=== PATIENT | female | born 1940 | race Caucasian/White ===

== ENCOUNTER 2020-08-06 17:04 | Inpatient (IN) ==
[2020-08-06] MEDS ORDERED: AMPICILLIN/SULBACTAM SOD 3,000 MG in 0.9 % SODIUM CHLORIDE 100 ML IV STA (19:29)
[2020-08-06 19:45] LABS: Basophils # (auto) 0.04 K/uL (0-0.2); Basophils % (auto) 0.3 %; Eosinophils # (auto) 0.13 K/uL (0-0.5); Eosinophils % (auto) 1.1 %; Hematocrit (blood only) 33.2 % (37-47); Immature Granulocytes # (auto) 0.04 K/uL (0.00-0.02); Immature Granulocytes % (auto) 0.3 %; Lymphocytes % (auto) 8.1 %; Mean Corpuscular Hemoglobin 31.3 pg (25-34); Mean Corpuscular Hgb Conc 33.1 g/dL (32-36); Mean Corpuscular Volume 94.3 fL (80-100); Mean Platelet Volume 9.8 fL (7.4-10.4); Monocytes # (auto) 1.34 K/uL (0.11-0.59); Monocytes % (auto) 10.8 %; Neutrophils # (auto) 9.82 K/uL (1.4-6.5); Neutrophils % (auto) 79.4 %; Platelet Count 183 K/uL (130-400); RDW Coefficient of Variation 14.2 % (11.5-14.5); RDW Standard Deviation 48.6 fL (36.4-46.3); Red Blood Count 3.52 M/uL (4.2-5.4); White Blood Count 12.37 K/uL (4.8-10.8)
[2020-08-06 19:56] LABS: INR 1.1 (0.9-1.1); Partial Thromboplastin Ratio 0.8; Partial Thromboplastin Time 23.1 Seconds (21.0-31.0); Prothrombin Time 11.4 Seconds (9.0-12.0)
[2020-08-06 20:02] LABS: Albumin Level 3.4 gm/dl (3.4-5.0); BUN Creatinine Ratio 17.6 (10-20); Calcium 9.7 mg/dl (8.5-10.1); Creatinine Clr Calc Pharmacy 29.6 ml/min; Est GFR (African American) 38.7; Est GFR (Non-African American) 33.4
[2020-08-06 20:05] LABS: Albumin Globulin Ratio 0.6 (0.9-2); Bilirubin,Total 0.4 mg/dl (0.2-1); Globulin 5.3 gm/dl (2.5-4.0); Total Protein 8.7 gm/dl (6.4-8.2)
[2020-08-06 20:06] LABS: iSTAT Creatinine 1.3 mg/dl (0.6-1.3); iSTAT Hemoglobin 10.9 g/dl (12.0-16.0); iSTAT Ionized Calcium 1.28 mmol/l (1.12-1.32); iSTAT Potassium 4.2 mmol/L (3.3-5.0)
[2020-08-06] MEDS ORDERED: IOVERSOL 100ml IV ONE (20:27)
--- NOTE | 2020-08-06 20:44 | CT Scan Report ---
CT SCAN OF THE ABDOMEN AND PELVIS WITH IV CONTRAST CLINICAL HISTORY: Left buttock abscess. COMPARISON STUDY: PET/CT dated 06/27/2019. TECHNIQUE: Following the IV administration of 94 cc of Optiray 320, CT scan of the abdomen and pelvi s is performed from the lung bases to the proximal femora. Images are reviewed in the axial, sagittal , and coronal planes. IV contrast was administered without complication. A dose lowering technique wa s utilized adhering to the principles of ALARA. CT DOSE: 571.72 mGy.cm FINDINGS: Lung bases: The heart is normal in size and without pericardial effusion. The lung bases are clear. T here is a small hiatal hernia. Liver: The contrast-enhanced liver is normal in size, contour, and attenuation. The liver is elongate d suggesting Evert's lobe variant anatomy. There is no intrahepatic biliary ductal dilatation. The h epatic veins and portal veins are patent. Gallbladder: Contracted. Spleen: Normal in size and attenuation. Pancreas: Pancreas is mildly atrophic. There are 2 cystic lesions in the pancreatic head and neck whi ch measure up to 1.3 cm. These are typical appearance for small sidebranch IPMNs. Adrenal glands: Unremarkable. Kidneys: The contrast enhanced kidneys demonstrate mild cortical atrophy and are without hydronephros is. The kidneys enhance symmetrically. Peripelvic cysts are noted on the left. Abdominal vasculature: The abdominal aorta is normal in course and caliber noting moderate to advance d atherosclerotic calcification. Bowel: There are scattered colonic diverticula without CT evidence of acute diverticulitis. No bowel obstruction is seen. The appendix is well-visualized and normal. Peritoneum: There is no intraperitoneal free air or abdominal ascites. There is a small fat-containin g umbilical hernia. Lymphadenopathy: None. Pelvic viscera: The bladder, uterus, and adnexa are normal as visualized. Skeletal structures: The skeletal structures are osteopenic. There is moderate to advanced lumbosacra l spondylosis and scoliosis. No lytic or blastic lesions are seen. Soft tissues: There is phlegmonous change identified in the left buttock along the inferior aspect of the midline gluteal crease. There is surrounding soft tissue inflammation. No organized/drainable fl uid collection is identified. Inflammatory change approaches the left aspect of the anal ring at the 4:00 position. No deep soft tissue gas is present in the perineum. IMPRESSION: 1. There is phlegmonous change in the inferior left buttock with surrounding cellulitis as above. No organized/drainable fluid collection is identified at this time. 2. Inflammatory change approaches the inferior aspect of the anal ring at the 4:00 position. 3. Additional findings as above. ACT 112: Negative or not required by law. Electronically signed by: Jack Coyne M.D. 08/06/2020 8:43 PM
--- NOTE | 2020-08-06 21:24 | Emergency Department Note ---
History of Present Illness General Chief complaint: Skin Problem Stated complaint: BOIL Time Seen by Provider: 08/06/20 19:16 Source: patient Mode of arrival: ambulatory Limitations: no limitations History of Present Illness Provider Complaint: + abscess/boil Onset (ago): 2 day(s) Tetanus up to date: yes Location: + buttocks Severity: mild Maximum Pain Intensity: 1 Current Pain Intensity: 1 Quality: + aching, + sharp and + constant Pain Consistency: + constant Relieved By: + immobilization Exacerbated By: + palpation and + movement Context: + none Associated symptoms: + denies other symptoms Treatments prior to arrival: + none HPI narrative: This 79-year-old female patient with significant past medical history of breast cancer with mets to the bone and lymph nodes presents to the emergency department today as a referral from her PCP for evaluation of left buttock abscess and cellulitis. The patient was seen in the outpatient clinic earlier today for pain and swelling in the left buttock. The patient states the abscess does seem to have opened since her arrival here in the emergency department and is now draining pus and blood. Patient states she noticed the abscess 1 week ago, but has worsened in the past 1 to 2 days. She denies any fevers or chills. She is currently taking Xgeva for the breast cancer. Home Medications Home Medications Medication Instructions Recorded Confirmed Type isosorbide dinitrate 30 mg tablet 30 mg PO QAM tab 07/04/19 08/06/20 History letrozole 2.5 mg tablet 2.5 mg PO QAM 07/04/19 08/06/20 History lisinopril 5 mg tablet 5 mg PO QAM 07/04/19 08/06/20 History metoprolol tartrate 50 mg tablet 50 mg PO QAM tab 07/04/19 08/06/20 History multivitamin 1 tab PO QAM 07/04/19 08/06/20 History rosuvastatin 20 mg tablet 20 mg PO QAM 07/04/19 08/06/20 History ascorbic acid (vitamin C) 500 mg PO DAILY 08/06/20 08/06/20 History aspirin [Aspir-81] 81 mg PO DAILY 08/06/20 08/06/20 History denosumab [Xgeva] 120 mg SUBCUT Q4WK 08/06/20 08/06/20 History Allergies Allergy/AdvReac Type Severity Reaction Status Date / Time No Known Allergies Verified 06/04/20 07:04 Past Med/Surg History Medical History Breast cancer, left JUN 2019 > RADIATION > RESOLVED Chronic ischemic heart disease FOLLOWS DR. CASAREZ Dyslipidemia Esophageal reflux H/O pneumothorax spontaneous > YRS AGO PER PATIENT History of ASCVD (atherosclerotic cardiovascular disease) STEMI 2009 Hypertension Mixed incontinence Varicose vein of leg Surgical History History of cardiac cath 1 STENT 2009 History of colonoscopy History of heart artery stent 1 STENT 2009 > [facility] History of tooth extraction S/P angioplasty 2009 S/P left breast biopsy 06-08-2019 Family History Mother , age 72 Heart disease Arthritis Father , age 72 Alzheimer disease Sister , age 70 Coronary heart disease Brother Stroke Brother , age 80 Heart disease Daughter Breast cancer had radiation therapy Daughter No problems noted. Son No problems noted. 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 Other Information That Helps Us Care for You: No Feels Safe at Home: Yes Safety Concerns: Feels Safe At This Time Childhood Exposure to Second-Hand Smoke: No Assistive Devices: Cane, Denture - Upper and Glasses Review of Systems A total of 10 systems reviewed and were otherwise negative Physical Exam Vital Signs: Vital Signs - 24 hr 08/06/20 17:09 08/06/20 19:33 08/06/20 19:49 Temperature 37.2 C Temperature Source Oral Pulse Rate 93 H Pulse Rate [Apical ] 75 Respiratory Rate 18 20 Respiratory Effort / Characteristics Non-Labored Respiratory Depth Normal Respiratory Patter n Regular Blood Pressure 138/68 Blood Pressure [Le ft Arm] 149/55 H Blood Pressure Silke n 91 Blood Pressure Silke n [Left Arm] 86 Blood Pressure Pos ition Sitting Pulse Oximetry 91 98 98 Oxygen Delivery Me thod Room Air Room Air Room Air Sepsis Recent Feve r Within 48 Hours Yes Sepsis New/Unexpla ined Change in Men bernarda Status No Sepsis Action Take n by Nursing No Action Required 08/06/20 20:00 08/06/20 21:00 Temperature Temperature Source Pulse Rate Pulse Rate [Apical ] 69 66 Respiratory Rate 20 21 Respiratory Effort / Characteristics Respiratory Depth Normal Normal Respiratory Patter n Blood Pressure Blood Pressure [Le ft Arm] 126/55 L 123/60 Blood Pressure Silke n Blood Pressure Silke n [Left Arm] 78 81 Blood Pressure Pos ition Pulse Oximetry 97 98 Oxygen Delivery Me thod Room Air Room Air Sepsis Recent Feve r Within 48 Hours Sepsis New/Unexpla ined Change in Men bernarda Status Sepsis Action Take n by Nursing Physical Exam: VITALS: Vitals are noted on the nurse's note and reviewed by my self. Vital signs stable. GENERAL: This is a an 79-year-old white female, in no acute distress, non diaphoretic, well-developed well-nourished. SKIN: Induration of the left buttock with surrounding mild erythematous, cellulitic changes of the skin encroaching on the anus. The skin was without rashes, erythema, edema, or bruising. There is no tenting of the skin. Capillary refill less than 2 seconds. HEAD: Normocephalic atraumatic. EYES: Conjunctivae without injection, sclerae without icterus. NECK: Supple without nuchal rigidity. No lymphadenopathy. HEART: Regular rate and rhythm without murmurs gallops or rubs. LUNGS: Clear to auscultation bilaterally without wheezes, rales or rhonchi. No retractions or accessory muscle use. ABDOMEN: Positive bowel sounds x 4. Normal tympanic percussion. Soft, nontender, without masses or organomegaly. No guarding or rebound tenderness. MUSCULOSKELETAL: No muscle atrophy, erythema, or edema noted. Full range of motion without joint tenderness in all extremities. No tenderness to palpation. Normal gait. Strength 5/5 throughout. NEURO: Patient was alert and oriented to person place and time. No focal neurological deficits. Course Course The patient was seen and evaluated as above. An order was placed for continuous cardiac monitoring. The monitor shows a n ormal sinus rhythm at a rate of 67 bpm. IV access obtained, labs drawn. Patient medicated with Unasyn. Imaging performed and reviewed by myself and radiologist as noted. Labs reviewed by myself. I discussed the findings with the patient at bedside. I discussed the case with the environmental manager. I discussed the [facility] He did agree to see and evaluate the patient for admission. Administered Medications Discontinued Medications Ampicillin Sodium/Sulbactam Sodium 3,000 mg/ Sodium Chloride 108 mls @ 200 mls/hr IV NOW STA; Protocol Stop: 08/06/20 20:01 Last Infusion: 08/06/20 21:14 Dose: 0 mls/hr Documented by: [id number] Admin: 08/06/20 20:41 Dose: 200 mls/hr Documented by: [id number] Ioversol (Ioversol 100ml) 94 ml IV ONCE ONE Stop: 08/06/20 20:28 Last Admin: 08/06/20 20:27 Dose: 94 ml Documented by: [id number] Medical Decision Making Differential Diagnosis + abscess of skin or subcutaneous tissue, + allergic reaction to drug, + cellulitis, + contact dermatitis, + cellulitis, + necrotizing fasciitis, + dermatitis and + drug eruption In addition to the above, Elsa's gangrene, among others were considered. Medical Records Attestation: I reviewed the patient's medical records. Home Medications Current Medication List: was personally reviewed by me Laboratory Data Attestation: I reviewed the patient's lab results. Mild leukocytosis of 12,000. Mild anemia with a hemoglobin of 11.0 and hematocrit of 33.2. No thrombocytopenia. Coags normal. Lactic acid 1.7. Creatinine 1.3. Hepatic function electrolytes without significant abnormality. Blood cultures pending. Wound culture pending. Result diagrams: 08/06/20 19:36 08/06/20 19:36 Lab Results 08/06/20 08/06/20 08/06/20 Range/Units 19:36 19:36 19:36 WBC 12.37 H (4.8-10.8) K/uL RBC 3.52 L (4.2-5.4) M/uL Hgb 11.0 L (12.0-16.0) g/dL POC Hgb (12.0-16.0) g/dl Hct 33.2 L (37-47) % POC Hct (37-47) % MCV 94.3 (80-100) fL MCH 31.3 (25-34) pg MCHC 33.1 (32-36) g/dL RDW Std Deviation 48.6 H (36.4-46.3) fL RDW Coeff of Allen 14.2 (11.5-14.5) % Plt Count 183 (130-400) K/uL MPV 9.8 (7.4-10.4) fL Immature Gran % (Auto) 0.3 % Neut % (Auto) 79.4 % Lymph % (Auto) 8.1 % Stanton % (Auto) 10.8 % Eos % (Auto) 1.1 % Baso % (Auto) 0.3 % Neut # (Auto) 9.82 H (1.4-6.5) K/uL Lymph # (Auto) 1.00 L (1.2-3.4) K/uL Stanton # (Auto) 1.34 H (0.11-0.59) K/uL Eos # (Auto) 0.13 (0-0.5) K/uL Baso # (Auto) 0.04 (0-0.2) K/uL Immature Gran # (Auto) 0.04 H (0.00-0.02) K/uL PT 11.4 (9.0-12.0) Seconds INR 1.1 (0.9-1.1) APTT 23.1 (21.0-31.0) Seconds PTT Ratio 0.8 POC Sodium (135-144) mmol/L Sodium (136-145) mmol/L POC Potassium (3.3-5.0) mmol/L Potassium (3.5-5.1) mmol/L POC Chloride (101-112) mmol/L Chloride (98-107) mmol/L Carbon Dioxide (21-32) mmol/L POC Total CO2 (24-31) mmol/L Anion Gap (3-11) POC Anion Gap (16-25) mmol/L POC BUN (7-18) mg/dl BUN (7-18) mg/dl Creatinine (0.6-1.2) mg/dl POC Creatinine (0.6-1.3) mg/dl Est Cr Clr Drug Dosing ml/min Est GFR ( Amer) Est GFR (Non-Af Amer) BUN/Creatinine Ratio (-20) Glucose (70-99) mg/dl POC Glucose (other) (70-99) mg/dl Lactate 1.7 (0.4-2.0) mmol/L Calcium (8.5-10.1) mg/dl POC Ioniz Calcium Rajani (1.12-1.32) mmol/l Total Bilirubin (0.2-1) mg/dl AST (15-37) U/L ALT (12-78) U/L Alkaline Phosphatase (45-117) U/L Total Protein (6.4-8.2) gm/dl Albumin (3.4-5.0) gm/dl Globulin (2.5-4.0) gm/dl Albumin/Globulin Ratio (0.9-2) 08/06/20 08/06/20 Range/Units 19:36 19:50 WBC (4.8-10.8) K/uL RBC (4.2-5.4) M/uL Hgb (12.0-16.0) g/dL POC Hgb 10.9 L (12.0-16.0) g/dl Hct (37-47) % POC Hct 32 L (37-47) % MCV (80-100) fL MCH (25-34) pg MCHC (32-36) g/dL RDW Std Deviation (36.4-46.3) fL RDW Coeff of Allen (11.5-14.5) % Plt Count (130-400) K/uL MPV (7.4-10.4) fL Immature Gran % (Auto) % Neut % (Auto) % Lymph % (Auto) % Stanton % (Auto) % Eos % (Auto) % Baso % (Auto) % Neut # (Auto) (1.4-6.5) K/uL Lymph # (Auto) (1.2-3.4) K/uL Stanton # (Auto) (0.11-0.59) K/uL Eos # (Auto) (0-0.5) K/uL Baso # (Auto) (0-0.2) K/uL Immature Gran # (Auto) (0.00-0.02) K/uL PT (9.0-12.0) Seconds INR (0.9-1.1) APTT (21.0-31.0) Seconds PTT Ratio POC Sodium 139 (135-144) mmol/L Sodium 136 (136-145) mmol/L POC Potassium 4.2 (3.3-5.0) mmol/L Potassium 4.0 (3.5-5.1) mmol/L POC Chloride 100 L (101-112) mmol/L Chloride 104 (98-107) mmol/L Carbon Dioxide 27 (21-32) mmol/L POC Total CO2 25 (24-31) mmol/L Anion Gap 5.0 (3-11) POC Anion Gap 19.0 (16-25) mmol/L POC BUN 26 H (7-18) mg/dl BUN 26 H (7-18) mg/dl Creatinine 1.47 H (0.6-1.2) mg/dl POC Creatinine 1.3 (0.6-1.3) mg/dl Est Cr Clr Drug Dosing 29.6 ml/min Est GFR ( Amer) 38.7 Est GFR (Non-Af Amer) 33.4 BUN/Creatinine Ratio 17.6 (10-20) Glucose 159 H (70-99) mg/dl POC Glucose (other) 166 H (70-99) mg/dl Lactate (0.4-2.0) mmol/L Calcium 9.7 (8.5-10.1) mg/dl POC Ioniz Calcium Rajani 1.28 (1.12-1.32) mmol/l Total Bilirubin 0.4 (0.2-1) mg/dl AST 62 H (15-37) U/L ALT 85 H (12-78) U/L Alkaline Phosphatase 98 (45-117) U/L Total Protein 8.7 H (6.4-8.2) gm/dl Albumin 3.4 (3.4-5.0) gm/dl Globulin 5.3 H (2.5-4.0) gm/dl Albumin/Globulin Ratio 0.6 L (0.9-2) Imaging Data Radiologist's Impression: CT SCAN OF THE ABDOMEN AND PELVIS WITH IV CONTRAST CLINICAL HISTORY: Left buttock abscess. COMPARISON STUDY: PET/CT dated 06/27/2019. TECHNIQUE: Following the IV administration of 94 cc of Optiray 320, CT scan of the abdomen and pelvis is performed from the lung bases to the proximal femora. Images are reviewed in the axial, sagittal, and coronal planes. IV contrast was administered without complication. A dose lowering technique was utilized adhering to the principles of ALARA. CT DOSE: 571.72 mGy.cm FINDINGS: Lung bases: The heart is normal in size and without pericardial effusion. The lung bases are clear. There is a small hiatal hernia. Liver: The contrast-enhanced liver is normal in size, contour, and attenuation. The liver is elongated suggesting Evert's lobe variant anatomy. There is no intrahepatic biliary ductal dilatation. The hepatic veins and portal veins are patent. Gallbladder: Contracted. Spleen: Normal in size and attenuation. Pancreas: Pancreas is mildly atrophic. There are 2 cystic lesions in the pancreatic head and neck which measure up to 1.3 cm. These are typical appearan ce for small sidebranch IPMNs. Adrenal glands: Unremarkable. Kidneys: The contrast enhanced kidneys demonstrate mild cortical atrophy and are without hydronephrosis. The kidneys enhance symmetrically. Peripelvic cysts are noted on the left. Abdominal vasculature: The abdominal aorta is normal in course and caliber noting moderate to advanced atherosclerotic calcification. Bowel: There are scattered colonic diverticula without CT evidence of acute diverticulitis. No bowel obstruction is seen. The appendix is well-visualized and normal. Peritoneum: There is no intraperitoneal free air or abdominal ascites. There is a small fat-containing umbilical hernia. Lymphadenopathy: None. Pelvic viscera: The bladder, uterus, and adnexa are normal as visualized. Skeletal structures: The skeletal structures are osteopenic. There is moderate to advanced lumbosacral spondylosis and scoliosis. No lytic or blastic lesions are seen. Soft tissues: There is phlegmonous change identified in the left buttock along the inferior aspect of the midline gluteal crease. There is surrounding soft tissue inflammation. No organized/drainable fluid collection is identified. Inflammatory change approaches the left aspect of the anal ring at the 4:00 position. No deep soft tissue gas is present in the perineum. IMPRESSION: 1. There is phlegmonous change in the inferior left buttock with surrounding c ellulitis as above. No organized/drainable fluid collection is identified at this time. 2. Inflammatory change approaches the inferior aspect of the anal ring at the 4:00 position. 3. Additional findings as above. ACT 112: Negative or not required by law. Electronically signed by: Jack Coyne M.D. 08/06/2020 8:43 PM Blood Pressure Blood Pressure Findings: Normal blood pressure MDM Narrative This 79-year-old female patient with significant past medical history of breast cancer on chemotherapy presents at the referral of her PCP for evaluation of an abscess and cellulitis on the left buttock. This is extensive in nature. We did elect to perform CT imaging to rule out Elsa's gangrene. This was consistent with phlegmonous change in the inferior left buttock with surrounding cellulitis, but no organized drainable fluid collection identified at this time. The inflammatory change does approach the inferior aspect of the anal ring at the 4 o'clock position. I am concerned for development of extensive abscess. The wound did begin draining while here in the department. Patient does have a mild leukocytosis. Given this and her chronic immunosuppression, I do recommend inpatient therapy for IV antibiotics, close monitoring, and potential surgical consultation. The patient was agreeable. [facility] Please see hospitalist dictation regarding ongoing management care of this patient. The chart was completed utilizing [employer] Speech voice recognition software. Grammatical errors, random word insertions, pronoun errors, and incomplete sentences are an occasional consequence of this system due to software limitations, ambient noise, and hardware issues. Any formal questions or concerns about the content, text, or information contained within the body of this dictation should be directly addressed to the provider for clarification. Impression & Plan Abscess, gluteal, left, Breast cancer metastasized to bone, T2DM (type 2 diabetes mellitus) Discharge Plan Visit Data Chief Complaint: Skin Problem Stated Complaint: BOIL ED Provider: Jared Smalls ED Midlevel Provider: Patti Jeong Discharge Problem: Abscess, gluteal, left, Breast cancer metastasized to bone, T2DM (type 2 diabetes mellitus) Patient Disposition: Admitted As Inpatient Discharge Instructions Interventions: ED Discharge Assessment Last Done: 08/06/20 22:21
--- NOTE | 2020-08-06 22:04 | History & Physical Report ---
Date of Service August 06, 2020 Assessment & Plan (1) Abscess, gluteal, left: This is an 79-year-old female who has significant past medical history of chronic ischemic heart disease with history of angioplasty and stent, history of left breast CA with mets to lung and bone currently in remission, HTN, HLD, CKD stage III who presents to ED secondary to left buttock pain x 1wk. Patient with large left gluteal crease carbuncle. She does not meet SIRS or sepsis criteria on admission. Admit to medical Continue IV antibiotics with Unasyn N.p.o. Consult general surgery for likely I&D wound/blood cultures pending APAP for pain IVF 75cc/hr NS (2) Acute worsening of stage 3 chronic kidney disease: Baseline creatinine 1.0 Likely elevated in setting of poor p.o. intake Gentle IVF 75 cc/h x 2 L Repeat in a.m., avoid nephrotoxic agents Hold lisinopril (3) Elevated LFTs: AST 62, ALT 85 Repeat in a.m. 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 Grady Status post radiation and Femara Follow-up with Dr. Grady today, 08/06 -stable (7) Hypertension: Blood pressure stable On lisinopril, metoprolol and Imdur Hold lisinopril in setting of mild THAO (8) Dyslipidemia: On statin as outpatient Hold in setting of elevated LFTs Repeat LFTs in a.m. (9) DVT prophylaxis: SCD/teds Hold chemical prophylaxis in setting of draining gluteal carbuncle Disposition: Admit to [facility] Follow-up: PCP Dr. Moody upon discharge Patient was seen and examined in collaboration with Dr. Sigala, please see addendum History of Present Illness Chief Complaint: L buttock pain x 1 wk. Primary Care Provider: John Moody MD This is an 79-year-old female who has significant past medical history of chronic ischemic heart disease with history of angioplasty and stent, history of left breast CA with mets to lung and bone currently in remission, HTN, HLD, CKD stage III who presents to ED secondary to left buttock pain x 1wk. She states over the last few days she began feeling a lump in her left buttock. It was painful. She felt like it was a boil. Over the past 1 to 2 days she started to notice bloody drainage coming from area. She has never had anything like this in the past. She was seen by PCP today. Due to concern for abscess she was sent to ED for further evaluation. Patient denies any fever, chills, sweats, lightheadedness, dizziness, chest pain, shortness breath, cough, nausea, vomiting, abdominal pain. She does elicit yesterday she had a 2 to 3-hour window of ill feeling, diarrhea and nausea, but this has since passed. She denies sick contacts. Her appetite has been slightly decreased. 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 Grady in oncology and felt to be stable. She also received her flu vaccine today. In ED patient made hemodynamically stable. Lab work notable for WBC 12.37, H&H 11.0 and 33.2, platelet 183, BUN 26, creatinine 1.47, glucose 159, AST 62, ALT 85 CT scan abdomen pelvis performed which revealed phlegmonous change in the inferior left buttock with surrounding cellulitis, no organized or drainable fluid collection identified. Inflammatory changes approaching the inferior aspect of the anal ring at 4:00. She received IV Unasyn in ED. Allergies Allergy/AdvReac Type Severity Reaction Status Date / Time No Known Allergies Verified 06/04/20 07:04 Home Medications Home Medications Medication Instructions Recorded Confirmed Type isosorbide dinitrate 30 mg tablet 30 mg PO QAM tab 07/04/19 08/06/20 History letrozole 2.5 mg tablet 2.5 mg PO QAM 07/04/19 08/06/20 History lisinopril 5 mg tablet 5 mg PO QAM 07/04/19 08/06/20 History metoprolol tartrate 50 mg tablet 50 mg PO QAM tab 07/04/19 08/06/20 History multivitamin 1 tab PO QAM 07/04/19 08/06/20 History rosuvastatin 20 mg tablet 20 mg PO QAM 07/04/19 08/06/20 History ascorbic acid (vitamin C) 500 mg PO DAILY 08/06/20 08/06/20 History aspirin [Aspir-81] 81 mg PO DAILY 08/06/20 08/06/20 History denosumab [Xgeva] 120 mg SUBCUT Q4WK 08/06/20 08/06/20 History Past Med/Surg History Medical History Breast cancer, left JUN 2019 > RADIATION > RESOLVED Chronic ischemic heart disease FOLLOWS DR. CASAREZ Dyslipidemia Esophageal reflux H/O pneumothorax spontaneous > YRS AGO PER PATIENT History of ASCVD (atherosclerotic cardiovascular disease) STEMI 2009 Hypertension Mixed incontinence Varicose vein of leg Surgical History History of cardiac cath 1 STENT 2009 History of colonoscopy History of heart artery stent 1 STENT 2009 > [facility] History of tooth extraction S/P angioplasty 2009 S/P left breast biopsy 06-08-2019 Family History Mother , age 72 Heart disease Arthritis Father , age 72 Alzheimer disease Sister , age 70 Coronary heart disease Brother Stroke Brother , age 80 Heart disease Daughter Breast cancer had radiation therapy Daughter No problems noted. Son No problems noted. 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 Other Information That Helps Us Care for You: No Feels Safe at Home: Yes Safety Concerns: Feels Safe At This Time Childhood Exposure to Second-Hand Smoke: No Assistive Devices: Cane, Denture - Upper and Glasses Review of Systems Review of Systems: All systems reviewed & are unremarkable except as noted in HPI & below Physical Exam Physical Exam: Constitutional: WD/WN, vitals as above, NAD, sitting up in bed, pleasant, conversing easily Head: Normocephalic, Atraumatic Eyes: PERRL, conjunctivae normal, anicteric sclerae ENMT: external ear and nose normal, oropharynx normal Neck: trachea midline, no thyromegaly normal visual inspection Respiratory: normal respiratory effort, lungs clear to auscultation, no wheeze, rales, rhonchi. Normal insp/exp effort, no accessory muscle use Cardiovascular: RRR, no murmur, no edema Vessels: no JVD or carotid bruit Chest: normal inspection of chest Abdomen: normal bowel sounds, soft, nontender, no hepatosplenomegaly Musculoskeletal: no cyanosis or clubbing, extremities motor strength 5/5 Skin: no rashes, warm and dry normal turgor Neurologic: PERRL, EOMI, accommodation nl, no face palsy, no dysarthria CN's II-XI intact bilaterally and moves all extremities Psychiatric: A+Ox3, euthymic affect Lymphatic: no cervical or axillary lymphadenopathy : +large carbuncle noted L gluteal crease, firm but fluctuant in center, surrounding erythema, warmth, tender to palpation, serosanguineous drainage noted, extends from gluteal crease to anus Results & Data Results & Data ([facility]) Vital Signs (Past 12 Hours) Vital Signs Temp Pulse Pulse Resp BP BP Pulse Ox 08/06/20 21:00 66 21 123/60 98 08/06/20 20:00 69 20 126/55 L 97 08/06/20 19:49 98 08/06/20 19:33 75 20 149/55 H 98 08/06/20 17:09 37.2 C 93 H 18 138/68 91 Laboratory Results Short CBC 08/06/20 Range/Units 19:36 WBC 12.37 H (4.8-10.8) K/uL Hgb 11.0 L (12.0-16.0) g/dL Hct 33.2 L (37-47) % Plt Count 183 (130-400) K/uL BMP 08/06/20 19:36 Sodium 136 Potassium 4.0 Chloride 104 Carbon Dioxide 27 BUN 26 H Creatinine 1.47 H Glucose 159 H Calcium 9.7 Liver Function 08/06/20 Range/Units 19:36 Total Bilirubin 0.4 (0.2-1) mg/dl AST 62 H (15-37) U/L ALT 85 H (12-78) U/L Alkaline Phosphatase 98 (45-117) U/L Albumin 3.4 (3.4-5.0) gm/dl Diagnostic Findings CT abd/pelvis: IMPRESSION: 1. There is phlegmonous change in the inferior left buttock with surrounding cellulitis as above. No organized/drainable fluid collection is identified at this time. 2. Inflammatory change approaches the inferior aspect of the anal ring at the 4:00 position. 3. Additional findings as above. Medications Administered Discontinued Medications Ampicillin Sodium/Sulbactam Sodium 3,000 mg/ Sodium Chloride 108 mls @ 200 mls/hr IV NOW STA; Protocol Stop: 08/06/20 20:01 Last Infusion: 08/06/20 21:14 Dose: 0 mls/hr Documented by: [id number] Admin: 08/06/20 20:41 Dose: 200 mls/hr Documented by: [id number] Ioversol (Ioversol 100ml) 94 ml IV ONCE ONE Stop: 08/06/20 20:28 Last Admin: 08/06/20 20:27 Dose: 94 ml Documented by: [id number] Code Status & VTE Plan Code Status Full Code VTE Prophylaxis Plan VTE Prophylaxis will be ordered: Yes Reason for no VTE drug order: Contraindicated Supervising Physician Co-Signing Physician Notes Attending Addendum: care coordinated with LETICIA Heath please refer to her notes for full details, I agree with her notes patient seen and examined, records reviewed by myself as well on exam, patient seen resting in bed, comfortable, in good spirits reports intermittent mild-moderated discomfort on the left buttock area no other symptoms VS noted and reviewed oriented x 3 , not in distress, speaks in sentences with no effort nor accessory muscle use normal rate, regular rhythm, no murmurs clear breath sounds bilaterally non distended, soft, nontender left buttock: indurated area, with surrounding erythema, mild warmth and tenderness no bipedal edema, erythema, warmth no neuro deficits WBC 12.3 Hg 10[address] abd/pelvis: 1. There is phlegmonous change in the inferior left buttock with surrounding cellulitis as above. No organized/drainable fluid collection is identified at this time. 2. Inflammatory change approaches the inferior aspect of the anal ring at the 4:00 position. ASSESSMENT AND PLAN> LEFT BUTTOCK ABSCESS, CELLULITIS ff up buttock and blood cultures empiric Daptomycin + Zosyn IV Gen Surg consulted, plan of I&D tomorrow--> mild-moderate risk for cardio- pulmonary complications given age, history of CAD with stent placement, No contraindication to proceed with I&D HISTORY OF CAD, STENT PLACEMENT no cardiac symptoms continue ASA, Metoprolol other diagnoses and plan of care as per LETICIA Heath notes Torey Sigala MD (1) Breast cancer metastasized to bone Laterality: left Qualified Code(s): C50.912 - Malignant neoplasm of unspecified site of left female breast; C79.51 - Secondary malignant neoplasm of bone
[2020-08-06] MEDS ORDERED: ALUMINUM/MAGNESIUM SUSP 30 ML UDC PO PRN (22:30)
[2020-08-06] MEDS ORDERED: CARBOHYDRATES FOR HYPOGLYCEMIA PO PRN (22:30)
[2020-08-06] MEDS ORDERED: DEXTROSE 50% 50 ML SYRINGE IV PRN (22:30)
[2020-08-06] MEDS ORDERED: ONDANSETRON INJ 2 MG/ML 2 ML VIAL IV PRN (22:30)
[2020-08-06] MEDS ORDERED: GLUCAGON FOR INJ 1 MG VIAL SQ PRN (22:30)
[2020-08-06] MEDS ORDERED: GLUCOSE 10 TABS/TUBE PO PRN (22:30)
[2020-08-06] MEDS ORDERED: POLYETHYLENE (MIRALAX) 17 GM PACK PO PRN (22:30)
[2020-08-06] MEDS ORDERED: GLUCOSE 40% GEL 15 GM TUBE PO PRN (22:30)
[2020-08-06] MEDS ORDERED: MAGNESIUM HYDROXIDE SUSP 30 ML UDC PO PRN (22:30)
[2020-08-06 23:14] LABS: Appearance Urine Clear (Clear); Bacteria Urine Automated Negative (Negative); Bilirubin Urine Negative (Negative); Blood Urine 3+ (Negative); Color Urine Yellow; Epithelial Cell Urine Auto >30 /lpf (0-5); Glucose Urine UA Negative (Negative); Ketones Urine Negative (Negative); Leukocyte Esterase Urine 1+ (Negative); Nitrite Urine Negative (Negative); Protein Urine 1+ (Negative); RBC Urine Automated >30 /hpf (0-4); Specific Gravity Urine > 1.045 (1.000-1.030); Urobilinogen Urine Negative (Negative); WBC Urine Automated >30 /hpf (0-5)
--- NOTE | 2020-08-06 23:17 | Surgery Consultation ---
Date of Consultation August 06, 2020 Assessment & Plan (1) Perirectal abscess: -pt. sen with Dr. Vance: -plan to take to OR tomorrow for I & D -pt. has been made npo by primary service -COVID status noted to be (-) -continue abx as ordered by primary service--unasyn Supervising Physician Co-Signing Physician Notes I personally saw and evaluated the patient with Barry Blank and agree with the assessement and plan. 79 yo female with guera-rectal/buttock abscess -Keep NPO -ABX -To OR tomorrow for I&D -Consent obtained, risks discussed including bleeding, infection, need for wound care History of Present Illness Attending Physician: Torey Sigala MD History of Present Illness 79 year old female was admitted due to concern for guera-rectal abscess. She noted 1 week of buttock pain with some subsequent bloody drainage. No fevers, shakes, chills. No N/V. No SOB or CP She as seen by her PCP who sent her to the ED due to concern for abscess. She denies hx of UC, Crohn's or other IBD. She has never had a guera-rectal or buttock abscess and has never had hemorrhoid surgery. At the time of consultation she was in no distress. Allergies Allergy/AdvReac Type Severity Reaction Status Date / Time No Known Allergies Verified 06/04/20 07:04 Home Medications Home Medications Medication Instructions Recorded Confirmed Type isosorbide dinitrate 30 mg tablet 30 mg PO QAM tab 07/04/19 08/06/20 History letrozole 2.5 mg tablet 2.5 mg PO QAM 07/04/19 08/06/20 History lisinopril 5 mg tablet 5 mg PO QAM 07/04/19 08/06/20 History metoprolol tartrate 50 mg tablet 50 mg PO QAM tab 07/04/19 08/06/20 History multivitamin 1 tab PO QAM 07/04/19 08/06/20 History rosuvastatin 20 mg tablet 20 mg PO QAM 07/04/19 08/06/20 History ascorbic acid (vitamin C) 500 mg PO DAILY 08/06/20 08/06/20 History aspirin [Aspir-81] 81 mg PO DAILY 08/06/20 08/06/20 History denosumab [Xgeva] 120 mg SUBCUT Q4WK 08/06/20 08/06/20 History Patient History Medical History Breast cancer, left JUN 2019 > RADIATION > RESOLVED Chronic ischemic heart disease FOLLOWS DR. CASAREZ Dyslipidemia Esophageal reflux H/O pneumothorax spontaneous > YRS AGO PER PATIENT History of ASCVD (atherosclerotic cardiovascular disease) STEMI 2009 Hypertension Mixed incontinence Varicose vein of leg Surgical History History of cardiac cath 1 STENT 2009 History of colonoscopy History of heart artery stent 1 STENT 2009 > [facility] History of tooth extraction S/P angioplasty 2009 S/P left breast biopsy 06-08-2019 Family History Mother , age 72 Heart disease Arthritis Father , age 72 Alzheimer disease Sister , age 70 Coronary heart disease Brother Stroke Brother , age 80 Heart disease Daughter Breast cancer had radiation therapy Daughter No problems noted. Son No problems noted. 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 Other Information That Helps Us Care for You: No Feels Safe at Home: Yes Safety Concerns: Feels Safe At This Time Childhood Exposure to Second-Hand Smoke: No Assistive Devices: Cane, Denture - Upper and Glasses Review of Systems Constitutional: no fever and no chills Eyes: no diplopia Ear, Nose, Mouth, Throat: no ear pain Respiratory: no cough and no dyspnea Cardiovascular: no chest pain Gastrointestinal: no nausea and no vomiting buttock pain Genitourinary: + dysuria Musculoskeletal: + back pain Integumentary: no rash Neurologic: no localized weakness Physical Exam Constitutional: well developed and well nourished; no acute distress Eyes: wears glasses ENMT: Ears: no hearing impairment Neck: trachea midline Respiratory: normal respiratory effort; no respiratory distress and no labored breathing Cardiovascular: Rate/Rhythm: regular rate and regular rhythm Gastrointestinal (Abdomen): Percussion/Palpation: abdomen soft; abdomen nontender rectal exam--pt had a fluctuant area at the 9:00 position about 2 cm x 2 cm in size with small amount of purulent drainage noted Skin: no rashes, warm and dry Neurologic: moves all extremities Psychiatric: A+Ox3, euthymic affect Results & Data ([facility]) Vital Signs (Past 12 Hours) Vital Signs Temp Pulse Pulse Pulse Resp BP BP 08/06/20 22:33 37.4 C 80 16 175/66 H 08/06/20 22:21 67 18 123/71 08/06/20 21:00 66 21 123/60 08/06/20 20:00 69 20 126/55 L 08/06/20 19:49 08/06/20 19:33 75 20 149/55 H 08/06/20 17:09 37.2 C 93 H 18 138/68 Pulse Ox 08/06/20 22:33 92 08/06/20 22:21 96 08/06/20 21:00 98 08/06/20 20:00 97 08/06/20 19:49 98 08/06/20 19:33 98 08/06/20 17:09 91 PG Care Time/CCT Total # of Minutes Spent Total Time Spent with Patient: Total time spent is greater than 50% in coordination of care (as documented) at patient's floor/unit and/or counseling patient: Coding Level of Care Code 16715 Inpt Consult Level 4 Diagnoses Perirectal abscess K61.1
[2020-08-06 23:27] LABS: Uric Acid Crystals Urine Present (None Prsent)
[2020-08-06] MEDS: SODIUM CHLORIDE 0.9% 1000ML 1,000 ML IV SCH (23:42)
[2020-08-07] MEDS ORDERED: DAPTOmycin 200 MG in SYRINGE 0 ML IV SCH (00:30)
[2020-08-07] MEDS: AMPICILLIN/SULBACTAM SOD 3,000 MG in 0.9 % SODIUM CHLORIDE 100 ML IV SCH ×4 (01:04→20:55)
[2020-08-07 06:13] LABS: Estimated Average Glucose 174 mg/dl; Hemoglobin A1C 7.7 % (4.5-5.6)
[2020-08-07 07:01] LABS: Basophils # (auto) 0.04 K/uL (0-0.2); Basophils % (auto) 0.5 %; Eosinophils # (auto) 0.33 K/uL (0-0.5); Eosinophils % (auto) 3.8 %; Hematocrit (blood only) 29.3 % (37-47); Hemoglobin 9.5 g/dL (12.0-16.0); Immature Granulocytes # (auto) 0.03 K/uL (0.00-0.02); Immature Granulocytes % (auto) 0.3 %; Lymphocytes # (auto) 1.11 K/uL (1.2-3.4); Lymphocytes % (auto) 12.7 %; Mean Corpuscular Hemoglobin 30.1 pg (25-34); Mean Corpuscular Hgb Conc 32.4 g/dL (32-36); Mean Corpuscular Volume 92.7 fL (80-100); Monocytes # (auto) 1.13 K/uL (0.11-0.59); Neutrophils # (auto) 6.08 K/uL (1.4-6.5); Neutrophils % (auto) 69.7 %; Platelet Count 148 K/uL (130-400); RDW Coefficient of Variation 14.3 % (11.5-14.5); RDW Standard Deviation 48.6 fL (36.4-46.3); Red Blood Count 3.16 M/uL (4.2-5.4); White Blood Count 8.72 K/uL (4.8-10.8)
[2020-08-07 07:35] LABS: Albumin Level 2.7 gm/dl (3.4-5.0); BUN Creatinine Ratio 17.5 (10-20); Calcium 8.4 mg/dl (8.5-10.1); Creatinine Clr Calc Pharmacy 38.9 ml/min; Est GFR (African American) 53.7; Est GFR (Non-African American) 46.4; Potassium 3.7 mmol/L (3.5-5.1)
[2020-08-07 07:55] LABS: Albumin Globulin Ratio 0.7 (0.9-2); Bilirubin,Total 0.3 mg/dl (0.2-1); Globulin 4.1 gm/dl (2.5-4.0); Total Protein 6.8 gm/dl (6.4-8.2)
--- NOTE | 2020-08-07 07:58 | Anesthesiology Consultation ---
Date of Service August 07, 2020 Assessment & Plan (1) Encounter for pre-operative examination: Chart Review Chart Review: Acceptable Risk for Surgery Consults Requested none ASA ASA3 Proposed Anesthesia Anesthesia Type: General Risk / Benefits Reviewed With: PT / POA / Parent / Guardian, Accepts Plan and Informed Consent Obtained History Surgery Operation Date: 08/07/20 08:00 Proposed Procedures p Incision and Drainage Perirectal Abscess - Holger Vance, DO Height/Weight Height: 5 ft 3 in Weight: 75 kg Allergies Allergy/AdvReac Type Severity Reaction Status Date / Time No Known Allergies Verified 06/04/20 07:04 Medications Home Medications Medication Instructions Recorded Confirmed Last Taken isosorbide dinitrate 30 mg tablet 30 mg PO QAM tab 07/04/19 08/06/20 06/17/20 letrozole 2.5 mg tablet 2.5 mg PO QAM 07/04/19 08/06/20 06/17/20 lisinopril 5 mg tablet 5 mg PO QAM 07/04/19 08/06/20 06/17/20 metoprolol tartrate 50 mg tablet 50 mg PO QAM tab 07/04/19 08/06/20 06/17/20 multivitamin 1 tab PO QAM 07/04/19 08/06/20 06/17/20 rosuvastatin 20 mg tablet 20 mg PO QAM 07/04/19 08/06/20 06/17/20 ascorbic acid (vitamin C) 500 mg PO DAILY 08/06/20 08/06/20 Unknown aspirin [Aspir-81] 81 mg PO DAILY 08/06/20 08/06/20 Unknown denosumab [Xgeva] 120 mg SUBCUT Q4WK 08/06/20 08/06/20 Unknown Active Medications Generic Name Dose Route Start Last Admin Trade Name Freq PRN Reason Stop Dose Admin Ampicillin Sodium/Sulbactam 108 mls @ 200 mls/hr 08/06/20 22:15 08/07/20 01:37 Sodium 3,000 mg/ Sodium IV 08/13/20 22:14 Infused Chloride Q6H BENNETT Infusion Protocol Sodium Chloride 1,000 mls @ 75 mls/hr 08/06/20 22:15 08/06/20 23:42 Nss 1000ml IV 08/08/20 00:54 75 mls/hr .[id number] BENNETT Administration Daptomycin 200 mg/ Syringe 4 mls @ 2 mls/min 08/07/20 00:30 08/07/20 01:04 IV 08/14/20 00:29 2 mls/min Q48H BENNETT Administration Protocol NPO Date Last Intake of Fluids: 08/06/20 Time Last Intake of Fluids: 23:00 Date Last Intake of Solids: 08/06/20 Past Medical History Medical History Breast cancer, left JUN 2019 > RADIATION > RESOLVED Chronic ischemic heart disease FOLLOWS DR. CASAREZ Dyslipidemia Esophageal reflux H/O pneumothorax spontaneous > YRS AGO PER PATIENT History of ASCVD (atherosclerotic cardiovascular disease) STEMI 2009 Hypertension Mixed incontinence Varicose vein of leg Exercise / Class Metabolic Activity III < 4 Walking/Shop/Light housework Past Family History Family History Mother , age 72 Heart disease Arthritis Father , age 72 Alzheimer disease Sister , age 70 Coronary heart disease Brother Stroke Brother , age 80 Heart disease Daughter Breast cancer had radiation therapy Daughter No problems noted. Son No problems noted. Past Surgical History Surgical History History of cardiac cath 1 STENT 2009 History of colonoscopy History of heart artery stent 1 STENT 2009 > [facility] History of tooth extraction S/P angioplasty 2009 S/P left breast biopsy 06-08-2019 Past Anesthesia History No Hx of Anesthesia Complications and No Family Hx of Anesthesia Complications History of PONV No Hx of PONV and No Hx of Motion Sickness Social History Smoking Status: Never smoker Hx Alcohol Use: No Hx Substance Use: No substance use type: does not use Physical Exam Vital Signs Last Vital Signs Temp 98.2 F 08/07/20 07:06 Pulse 62 08/07/20 07:06 Resp 18 08/07/20 07:06 BP 124/75 08/07/20 07:06 Pulse Ox 95 08/07/20 07:06 ENMT Mouth: + dentures (Upper) Thyromental Distance: > or= 3.5 Finger Breadths Mallampati Class: II Neck normal visual inspection Respiratory normal respiratory effort Auscultation: lungs clear to auscultation bilaterally Cardiovascular Rate/Rhythm: regular rate and regular rhythm Testing Laboratory Results 08/07/20 06:25 08/07/20 06:25 PT 11.4 Seconds (9.0-12.0) 08/06/20 19:36 INR 1.1 (0.9-1.1) 08/06/20 19:36 APTT 23.1 Seconds (21.0-31.0) 08/06/20 19:36 Hemoglobin A1c 7.7 % (4.5-5.6) H 08/06/20 19:36 Urine Color Yellow 08/06/20 Unknown Urine Appearance Clear (Clear) 08/06/20 Unknown Urine pH 5.0 (4.5-7.5) 08/06/20 Unknown Ur Specific [place] > 1.045 (1.000-1.030) H 08/06/20 Unknown Urine Protein 1+ (Negative) H 08/06/20 Unknown Urine Glucose (UA) Negative (Negative) 08/06/20 Unknown Urine Ketones Negative (Negative) 08/06/20 Unknown Urine Nitrite Negative (Negative) 08/06/20 Unknown Ur Leukocyte Esterase 1+ (Negative) H 08/06/20 Unknown Urine WBC (Auto) >30 /hpf (0-5) H 08/06/20 Unknown Urine RBC (Auto) >30 /hpf (0-4) H 08/06/20 Unknown U Hyaline Cast (Auto) 1-5 /lpf (0-5) 08/06/20 Unknown U Epithel Cells (Auto) >30 /lpf (0-5) H 08/06/20 Unknown Urine Bacteria (Auto) Negative (Negative) 08/06/20 Unknown 08/06/20 19:30 Gram Stain - Final Buttock 08/07/20 08/06/20 06:45 23:55 POC Glucose 126 H 167 H Electrocardiogram Date: 08/07/20 Sinus bradycardia, rate 59 bpm Otherwise normal ECG When compared with ECG of 06-OCT-2010 07:03, T wave inversion no longer evident in Anterolateral leads
--- NOTE | 2020-08-07 08:04 | History & Physical Bridge Note ---
Date of Service August 07, 2020 History & Physical Bridge Note I have examined the patient, reviewed the History & Physical and in the interval since the performance of the History & Physical I have noted the following changes of clinical significance: no changes noted
[2020-08-07] MEDS ORDERED: ONDANSETRON INJ 2 MG/ML 2 ML VIAL ONE (08:05)
[2020-08-07] MEDS ORDERED: DEXAMETHASONE SOD INJ 4 MG/ML VIAL ONE (08:05)
[2020-08-07] MEDS ORDERED: LIDOCAINE HCL 2% 2 ML VIAL/AMP(20MG/ML) INFIL ONE (08:05)
[2020-08-07] MEDS ORDERED: PROPOFOL IV EMULSION 10 MG/ML 20 ML VIAL IV ONE (08:06)
[2020-08-07] MEDS ORDERED: fentaNYL citrate 100 MCG/2 ML VIAL ONE (08:06)
[2020-08-07] MEDS ORDERED: BUPIVACAINE/EPINEPHRINE 0.25% 1:200,000 30 ML VIAL ONE (08:16)
[2020-08-07] MEDS ORDERED: ATROPINE SULFATE 0.1 MG/ML 10ML SYR IV PRN (08:21)
[2020-08-07] MEDS ORDERED: ONDANSETRON INJ 2 MG/ML 2 ML VIAL IV PRN (08:21)
[2020-08-07] MEDS ORDERED: fentaNYL citrate 100 MCG/2 ML VIAL IV PRN (08:21)
[2020-08-07] MEDS ORDERED: ePHEDrine sulfate 50 MG/ML AMP IV PRN (08:21)
[2020-08-07] MEDS: ASCORBIC ACID 500 MG TAB PO SCH (08:45)
[2020-08-07] MEDS: MULTIVITAMIN TAB PO SCH (08:45)
[2020-08-07] MEDS: METOPROLOL TARTRATE 50 MG TAB PO SCH (08:45)
[2020-08-07] MEDS: ASPIRIN 81 MG ECTAB PO SCH (08:45)
[2020-08-07] MEDS: ROSUVASTATIN CALCIUM 20 MG TAB PO SCH (08:45)
[2020-08-07] MEDS: LETROZOLE 2.5 MG TAB PO SCH (08:45)
[2020-08-07] MEDS ORDERED: ROSUVASTATIN CALCIUM 20 MG TAB PO SCH (09:00)
[2020-08-07] MEDS ORDERED: ISOSORBIDE DINITRATE 10 MG TAB PO SCH (09:00)
--- NOTE | 2020-08-07 09:00 | Electrocardiogram Report ---
Test Reason : Blood Pressure : / mmHG Vent. Rate : 059 BPM Atrial Rate : 059 BPM P-R Int : 176 ms QRS Dur : 080 ms QT Int : 432 ms P-R-T Axes : 076 064 051 degrees QTc Int : 427 ms Sinus bradycardia Otherwise normal ECG When compared with ECG of 06-OCT-2010 07:03, T wave inversion no longer evident in Anterolateral leads Confirmed by Jace Abraham [id number]) on 08/07/2020 8:59:58 AM Referred By: John Moody Confirmed By:Jace Abraham
--- NOTE | 2020-08-07 09:04 | Post Operative Brief Note ---
PG Immediate Post Op with CF Date of Surgery August 07, 2020 Pre & Post Diagnosis Operation Date: 08/07/20 08:00 Guera-rectal abscess I identified the patient and participated in the time-out.: Yes Procedure Operation Date: 08/07/20 08:00 Incision and drainage of guera-rectal abscess Surgeon Holger Vance DO Audiovisual Tech None Estimated Blood Loss 5 Findings Consistent with Post-Op Diagnosis Fluids 400mL Specimens Specimen Description: Abscess fluid for culture Anesthesia Type General Complications none Disposition Disposition: Recovery Room
--- NOTE | 2020-08-07 09:52 | Anesthesiology Progress Note ---
Date of Service August 07, 2020 Anesthesia Post Procedure Vital Signs Vital Signs: Temp Pulse Pulse Pulse Pulse Resp BP 08/07/20 09:40 65 13 08/07/20 09:30 61 17 08/07/20 09:20 97.0 F L 58 L 16 08/07/20 08:20 98.1 F 68 18 08/07/20 07:06 98.2 F 62 18 08/06/20 23:43 98.8 F 64 16 08/06/20 22:33 99.3 F 80 16 08/06/20 22:21 67 18 123/71 08/06/20 21:00 66 21 08/06/20 20:00 69 20 08/06/20 19:49 08/06/20 19:33 75 20 08/06/20 17:09 99.0 F 93 H 18 138/68 BP Pulse Ox 08/07/20 09:40 97/73 L 97 08/07/20 09:30 118/47 L 100 08/07/20 09:20 125/49 L 100 08/07/20 08:20 150/54 H 97 08/07/20 07:06 124/75 95 08/06/20 23:43 136/73 96 08/06/20 22:33 175/66 H 92 08/06/20 22:21 96 08/06/20 21:00 123/60 98 08/06/20 20:00 126/55 L 97 08/06/20 19:49 98 08/06/20 19:33 149/55 H 98 08/06/20 17:09 91 Transfer of Care Handoff Completed per policy Notes Mental Status: alert / awake / arousable and participated in evaluation Patient Amnestic to Procedure: Yes Nausea / Vomiting: adequately controlled Pain: adequately controlled Airway Patency, RR, SpO2: stable & adequate BP & HR: stable & adequate Hydration State: stable & adequate Anesthetic Complications: no major complications apparent and Pt Satisfied with anesthetic care
[2020-08-07] MEDS ORDERED: MoRPHine SULFATE 2 MG/ML CARP IV PRN (10:12)
[2020-08-07] MEDS ORDERED: oxyCODONE/ACETAMINOPHEN 5mg/325mg TAB PO PRN ×2 (10:12)
--- NOTE | 2020-08-07 11:40 | Operative Report ---
PG Post Operative Report Pre & Post Diagnosis Operation Date: 08/07/20 08:00 Pre-Op Diagnosis: Perirectal Abscess Post-Op Diagnosis: Perirectal Abscess I identified the patient and participated in the time-out.: Yes Procedure Operation Date: 08/07/20 08:00 Actual Procedures p Incision and Drainage Perirectal Abscess - Holger Vance DO Surgeon Holger Vance DO Pulmonologist None Estimated Blood Loss 5 Findings Consistent with Post-Op Diagnosis Small abscess, no fistula or mass on rectal exam Fluids 400ml crystalloid Specimens Abscess fluid for culture Drains None Anesthesia Type General Complications none Disposition Disposition: Recovery Room Indications 79 yo female with guera-rectal abscess Description of Procedure The patient was brought to the OR and placed in the lithotomy position. At this time she underwent General LMA anesthesia without issue. She was given appropriate pre-operative antibiotics. The perineum was prepped and draped in the usual sterile fashion. A timeout was called. The procedure was verified as Incision and drainage of guera-rectal abscess. Surgical, anesthesia and nursing teams agreed and the procedure was begun. Digital rectal exam was performed and no mass or fistula was found. After injection of 0.25% Marcaine with epinephrine, an incision was made directly over the most fluctuant area of abscess using a #11 blade scalpel. Purulent fluid was encountered. Wide drainage was ensured. All loculations were broken up bluntly. At this time the incision was irrigated until clear. Hemostasis was achieved using electrocautery. Hemostasis was complete. The incision was packed with a wet to dry Kerlix. Sterile dressing was applied. The patient was awakened from anesthesia and taking to PACU having remained stable throughout the entire case. All needle and sponge counts correct x 2. I attest to the content of the Intraoperative Record and any orders documented therein. Any exceptions are noted below.
[2020-08-07] MEDS: SODIUM CHLORIDE 0.9% 1000ML 1,000 ML IV SCH (11:59)
--- NOTE | 2020-08-07 17:49 | Hospitalist Progress Note ---
Date of Service August 07, 2020 Assessment & Plan (1) Perirectal abscess: s/p I&D in OR this morning (08/07). All loculations were bluntly broken and wound was packed. No fistula or mass was noted. She recovered well on the floor and is not requiring pain medications. Cont abx pending wound culture results. Daily wound packing per surgery. (2) Acute worsening of stage 3 chronic kidney disease: Improving to baseline (1.1 today), fluids stopped. Encouraged PO intake. Cont holding lisinopril postoperatively. Repeat in am. (3) Elevated LFTs: repeat after holding statin. No RUQ pain (4) Chronic ischemic heart disease: stable, cont medical management with ASA, Toprol and Imdur. Lisinopril and statin on hold as above. (5) T2DM (type 2 diabetes mellitus): A1C 7.7. Adding basal bolus coverage as glucose was rising today. Will consult diabetic nurse educator. 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 Grady Status post radiation and Femara. Cont trt plan per Oncology. (7) Hypertension: at goal. Hold lisinopril as above. (8) DVT prophylaxis: SCD/teds Chemoprophylaxis once cleared by surgery team post-operatively. Full Code Dispo-cont hospitalization on medical floor. Want to see good wound healing over next 24-48 hours to ensure no wound vac will be needed. Uncertain needs going home at this time. Jillian Sánchez DO [facility] Hospitalist Admission and Anticipated Discharge Date Admission Date: August 06, 2020 Results & Data Results & Data ([facility]) Vital Signs (Past 12 Hours) Vital Signs Temp Pulse Pulse Pulse Resp BP Pulse Ox 08/07/20 15:26 36.5 C 63 18 126/58 L 95 08/07/20 13:07 37.3 C 62 19 129/62 96 08/07/20 12:10 37 C 62 18 129/60 95 08/07/20 11:11 36.6 C 61 18 123/55 L 96 08/07/20 10:40 36.5 C 64 17 135/60 96 08/07/20 10:15 36.7 C 65 18 119/75 96 08/07/20 10:00 37.0 C 63 17 118/57 L 96 08/07/20 09:50 61 18 126/52 L 95 08/07/20 09:40 65 13 97/73 L 97 08/07/20 09:30 61 17 118/47 L 100 08/07/20 09:20 36.1 C L 58 L 16 125/49 L 100 08/07/20 08:20 36.7 C 68 18 150/54 H 97 08/07/20 07:06 36.8 C 62 18 124/75 95 Laboratory Results Short CBC 08/06/20 08/07/20 Range/Units 19:36 06:25 WBC 12.37 H 8.72 (4.8-10.8) K/uL Hgb 11.0 L 9.5 L (12.0-16.0) g/dL Hct 33.2 L 29.3 L (37-47) % Plt Count 183 148 (130-400) K/uL BMP 08/06/20 08/07/20 19:36 06:25 Sodium 136 139 Potassium 4.0 3.7 Chloride 104 109 H Carbon Dioxide 27 25 BUN 26 H 20 H Creatinine 1.47 H 1.12 D Glucose 159 H 118 H Calcium 9.7 8.4 L Liver Function 08/06/20 08/07/20 Range/Units 19:36 06:25 Total Bilirubin 0.4 0.3 (0.2-1) mg/dl AST 62 H 41 H (15-37) U/L ALT 85 H 64 (12-78) U/L Alkaline Phosphatase 98 75 (45-117) U/L Albumin 3.4 2.7 L (3.4-5.0) gm/dl Urine 08/06/20 Range/Units Unknown Urine Color Yellow Urine Appearance Clear (Clear) Urine pH 5.0 (4.5-7.5) Ur Specific [place] > 1.045 H (1.000-1.030) Urine Protein 1+ H (Negative) Urine Glucose (UA) Negative (Negative) Medications Administered Current Inpatient Medications Acetaminophen (Acetaminophen 325 Mg Tab) 650 mg PO Q4H PRN PRN Reason: Pain or Fever Stop: 09/05/20 22:29 Al Hydrox/Mg Hydrox/Simethicone (Aluminum/Magnesium Susp 30 Ml Udc) 15 ml PO Q4H PRN PRN Reason: Dyspepsia Stop: 09/05/20 22:29 Ascorbic Acid (Ascorbic Acid 500 Mg Tab) 500 mg PO DAILY [facility] Stop: 09/06/20 08:59 Last Admin: 08/07/20 08:45 Dose: Not Given Documented by: Aspirin (Aspirin 81 Mg Ectab) 81 mg PO DAILY [facility] Stop: 09/06/20 08:59 Last Admin: 08/07/20 08:45 Dose: Not Given Documented by: Dextrose (Dextrose 50% 50 Ml Syringe) 25 - 50 ml IV UD PRN; Protocol PRN Reason: Hypoglycemia Protocol Stop: 09/05/20 22:29 Glucagon (Glucagon For Inj 1 Mg Vial) 1 mg SQ UD PRN; Protocol PRN Reason: Hypoglycemia Protocol Stop: 09/05/20 22:29 Glucose (Glucose 10 Tabs/Tube) 4 - 8 tabs PO UD PRN; Protocol PRN Reason: Hypoglycemia Protocol Stop: 09/05/20 22:29 Glucose (Glucose 40% Gel 15 Gm Tube) 15 - 30 gm PO UD PRN; Protocol PRN Reason: Hypoglycemia Protocol Stop: 09/05/20 22:29 Ampicillin Sodium/Sulbactam Sodium 3,000 mg/ Sodium Chloride 108 mls @ 200 mls/hr IV Q6H [facility]; Protocol Stop: 08/13/20 22:14 Last Infusion: 08/07/20 14:03 Dose: Infused Documented by: Sodium Chloride (Nss 1000ml) 1,000 mls @ 75 mls/hr IV .[id number] [facility] Stop: 08/08/20 00:54 Last Admin: 08/07/20 11:59 Dose: 75 mls/hr Documented by: Daptomycin 200 mg/ Syringe 4 mls @ 2 mls/min IV Q24H [facility]; Protocol Stop: 08/14/20 00:00 Isosorbide Mononitrate (Isosorbide [place] Extended Rel 30 Mg Tabcr) 30 mg PO QAM [facility] Stop: 09/07/20 08:59 Letrozole (Letrozole 2.5 Mg Tab) 2.5 mg PO QAM [facility] Stop: 09/06/20 08:59 Last Admin: 08/07/20 08:45 Dose: Not Given Documented by: Magnesium Hydroxide (Magnesium Hydroxide Susp 30 Ml Udc) 30 ml PO Q12H PRN PRN Reason: Constipation Stop: 09/05/20 22:29 Metoprolol Tartrate (Metoprolol T[facility]rate 50 Mg Tab) [facility] Stop: 09/06/20 08:59 Last Admin: 08/07/20 08:45 Dose: Not Given Documented by: Miscellaneous (Carbohydrates For Hypoglycemia ) 15 - 30 gm PO UD PRN PRN Reason: Hypoglycemia Protocol Stop: 09/05/20 22:29 Miscellaneous Information (Daptomycin Consult Active) 1 ea N/A UD PRN PRN Reason: Consult Stop: 09/06/20 00:04 Morphine Sulfate (Morphine Sulfate 2 Mg/Ml Carp) 2 mg IV Q1H PRN PRN Reason: Pain Stop: 08/21/20 10:11 Multivitamins (Multivitamin Tab) [facility] Stop: 09/06/20 08:59 Last Admin: 08/07/20 08:45 Dose: Not Given Documented by: Ondansetron HCl (Ondansetron Inj 2 Mg/Ml 2 Ml Vial) 4 mg IV Q6H PRN PRN Reason: Nausea Stop: 09/05/20 22:29 Oxycodone/Acetaminophen (Oxycodone/Acetaminophen 5mg/325mg Tab) 1 tab PO Q4H PRN PRN Reason: Pain Stop: 08/21/20 10:11 Oxycodone/Acetaminophen (Oxycodone/Acetaminophen 5mg/325mg Tab) 2 tab PO Q4H PRN PRN Reason: Pain Stop: 08/21/20 10:11 Polyethylene Glycol (Polyethylene (Miralax) 17 Gm Pack) 17 gm PO DAILY PRN PRN Reason: Constipation Stop: 09/05/20 22:29 Rosuvastatin Calcium (Rosuvastatin Calcium 20 Mg Tab) 20 mg PO [facility] Stop: 09/06/20 08:59 Last Admin: 08/07/20 08:45 Dose: Not Given Documented by: (1) T2DM (type 2 diabetes mellitus) Diabetes mellitus complication status: with other specified complication Diabetes mellitus buttermilk drier operator insulin use: unspecified buttermilk drier operator insulin use status Qualified Code(s): E11.69 - Type 2 diabetes mellitus with other specified complication (2) Breast cancer metastasized to bone Laterality: unspecified laterality Qualified Code(s): C50.919 - Malignant neoplasm of unspecified site of unspecified female breast; C79.51 - Secondary malignant neoplasm of bone
[2020-08-07] MEDS ORDERED: INSULIN ASPART 100 UNITS/ML 3 ML PEN SC SCH (21:00)
[2020-08-07] MEDS ORDERED: INSULIN GLARGINE SOLOSTAR 100 UNITS/ML 3 ML PEN SC SCH (21:00)
[2020-08-07] MEDS: INSULIN GLARGINE SOLOSTAR 100 UNITS/ML 3 ML PEN SC SCH (21:02)
[2020-08-07] MEDS: INSULIN ASPART 100 UNITS/ML 3 ML PEN SC SCH (21:03)
[2020-08-08] MEDS ORDERED: DAPTOmycin 200 MG in SYRINGE 0 ML IV SCH
[2020-08-08] MEDS: AMPICILLIN/SULBACTAM SOD 3,000 MG in 0.9 % SODIUM CHLORIDE 100 ML IV SCH ×4 (01:26→21:29)
[2020-08-08] MEDS: ASCORBIC ACID 500 MG TAB PO SCH (08:27)
[2020-08-08] MEDS: MULTIVITAMIN TAB PO SCH (08:27)
[2020-08-08] MEDS: METOPROLOL TARTRATE 50 MG TAB PO SCH (08:27)
[2020-08-08] MEDS: ROSUVASTATIN CALCIUM 20 MG TAB PO SCH (08:27)
[2020-08-08] MEDS: LETROZOLE 2.5 MG TAB PO SCH (08:27)
[2020-08-08] MEDS: ISOSORBIDE MONO EXTENDED REL 30 MG TABCR PO SCH (08:27)
[2020-08-08] MEDS: ASPIRIN 81 MG ECTAB PO SCH (08:28)
[2020-08-08] MEDS: INSULIN GLARGINE SOLOSTAR 100 UNITS/ML 3 ML PEN SC SCH ×2 (08:29→21:35)
[2020-08-08] MEDS: INSULIN ASPART 100 UNITS/ML 3 ML PEN SC SCH ×4 (08:54→21:36)
[2020-08-08] MEDS ORDERED: ROSUVASTATIN CALCIUM 20 MG TAB PO SCH (09:00)
[2020-08-08 09:13] LABS: Hematocrit (blood only) 29.7 % (37-47); Hemoglobin 9.3 g/dL (12.0-16.0); Mean Corpuscular Hemoglobin 29.5 pg (25-34); Mean Corpuscular Hgb Conc 31.3 g/dL (32-36); Mean Corpuscular Volume 94.3 fL (80-100); Platelet Count 165 K/uL (130-400); RDW Coefficient of Variation 14.4 % (11.5-14.5); RDW Standard Deviation 49.4 fL (36.4-46.3); Red Blood Count 3.15 M/uL (4.2-5.4); White Blood Count 8.91 K/uL (4.8-10.8)
--- NOTE | 2020-08-08 09:14 | Surgery Progress Note ---
Date of Service August 08, 2020 Assessment & Plan (1) Perirectal abscess: POD#1 I&D of guera-rectal abscess patient clinically doing well dressing changed at bedside, no drainage/purulence noted. Some induration Plan would be to continue daily packing changes with loose 1/4" nu-gauze, 4x4 ga uze, covered with ABD pad, and medical tape Pt should undergo daily sitz baths prior to wound packing if able at dispo OR wound cultures pending, but can plan to complete course of abx for total of 7 days; can transition to orals will ask patient to follow up in clinic late next week with Dr. Vance Pt seen and examined with Dr. Vance Admission and Anticipated Discharge Date Admission Date: August 06, 2020 Supervising Physician Co-Signing Physician Notes I personally saw and evaluated the patient with Angelina Packer PA-C and agree with the assessment and plan. 79 yo female POD#1 I&D guera-rectal abscess -Dressing changed at bedside, no purulence or undrained collections -Continue daily packing changes, sitz baths daily prior to re-packing -Ok to switch to PO ABX, cultures are pending -She is ok to be discharged home today as long as she has help with packing changes at home Subjective Patient states she is feeling well. Denies much pain or discomfort. Physical Exam Physical Exam: awake/alert Respiratory: normal respiratory effort Gastrointestinal (Abdomen): Left buttock wound without drainage/purulence. mild erythema, some induration Results & Data ([facility]) Vital Signs (Past 12 Hours) Vital Signs Temp Pulse Resp BP Pulse Ox 08/08/20 07:04 36.5 C 68 16 167/79 H 96 08/08/20 04:05 36.6 C 64 15 129/74 96 08/07/20 23:42 37.1 C 61 16 121/61 95 PG Care Time/CCT Total # of Minutes Spent Total Time Spent with Patient: Total time spent is greater than 50% in coordination of care (as documented) at patient's floor/unit and/or counseling patient: Coding Level of Care Code None Diagnoses Perirectal abscess K61.1
[2020-08-08 09:39] LABS: Albumin Level 2.7 gm/dl (3.4-5.0); BUN Creatinine Ratio 16.6 (10-20); Calcium 8.4 mg/dl (8.5-10.1); Creatinine Clr Calc Pharmacy 34.5 ml/min; Est GFR (African American) 46.6; Est GFR (Non-African American) 40.2
[2020-08-08 09:41] LABS: Albumin Globulin Ratio 0.6 (0.9-2); Bilirubin,Total 0.2 mg/dl (0.2-1); Globulin 4.3 gm/dl (2.5-4.0)
[2020-08-08] MEDS: ACETAMINOPHEN 325 MG TAB PO PRN ×2 (11:16→21:42)
--- NOTE | 2020-08-08 18:05 | Hospitalist Progress Note ---
Date of Service August 08, 2020 Assessment & Plan (1) Perirectal abscess: s/p I&D in OR (08/07). Doing well post-op with repacking of wound this morning and no pain. Wound culture reveals MRSA. Swtich abx to clinda. Daily wound packing per surgery. (2) Acute worsening of stage 3 chronic kidney disease: Improving to baseline. Encouraged PO intake. Cont holding lisinopril postoperatively. (3) Elevated LFTs: repeat after holding statin were decreased. No RUQ pain. Follow-up as outpatient. (4) Chronic ischemic heart disease: stable, cont medical management with ASA, Toprol and Imdur. Lisinopril and statin on hold as above. (5) T2DM (type 2 diabetes mellitus): A1C 7.7. cont basal bolus insulin while hospitalized. Consider oral agent at discharge. Close PCP followup. 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 Grady Status post radiation and Femara. Cont trt plan per Oncology. (7) Hypertension: at goal. Hold lisinopril as above. (8) DVT prophylaxis: SCD/teds Chemoprophylaxis once cleared by surgery team post-operatively. Full Code Dispo-cont hospitalization on medical floor. Want to see good wound healing over next 24-48 hours to ensure no wound vac will be needed. Following blood cultures at this time. Jillian S[facility]chez DO [facility] and Anticipated Discharge Date Admission Date: August 06, 2020 Subjective Feels and looks well clinically surgery repacked wound today tolerating PO afebrile denies pain echo performed and WNL-normal EF BCx pending Review of Systems Review of Systems: All systems reviewed & are unremarkable except as noted in Subjective Physical Exam Physical Exam: CONSTITUTIONAL: WNWD, vitals as above, generally well- appearing EYES: normal conjunctivae, no scleral icterus ENT: external ear and nose normal, MMM RESPIRATORY: clear to auscultation bilaterally, no crackles, rales or wheezes, normal respiratory effort CARDIOVASCULAR: regular rate and rhythm, S1 and 2 heard without murmurs, gallops or rubs, no JVD, no peripheral edema GASTROINTESTINAL: soft, nontender, nondistended. MUSCULOSKELETAL: strength 5/5 throughout, head is normocephalic and atraumatic, neck supple, normal palpation of chest wall without tenderness SKIN: warm and dry, surgical incision is packed and dressed-this was not visualized by myself. NEUROLOGIC: CN 2-12 grossly intact, no gross focal deficits. PSYCHIATRIC: alert cooperative and oriented to person, place and time. Results & Data Results & Data ([facility]) Vital Signs (Past 12 Hours) Vital Signs Temp Pulse Pulse Resp BP BP Pulse Ox 08/08/20 15:21 36.4 C L 58 L 20 127/73 97 08/08/20 12:25 36.7 C 60 18 139/68 96 08/08/20 07:04 36.5 C 68 16 167/79 H 96 Laboratory Results Short CBC 08/08/20 Range/Units 08:46 WBC 8.91 (4.8-10.8) K/uL Hgb 9.3 L (12.0-16.0) g/dL Hct 29.7 L (37-47) % Plt Count 165 (130-400) K/uL BMP 08/08/20 08:46 Sodium 140 Potassium 4.0 Chloride 109 H Carbon Dioxide 25 BUN 21 H Creatinine 1.26 H Glucose 137 H Calcium 8.4 L Liver Function 08/08/20 Range/Units 08:46 Total Bilirubin 0.2 (0.2-1) mg/dl AST 28 (15-37) U/L ALT 51 (12-78) U/L Alkaline Phosphatase 71 (45-117) U/L Albumin 2.7 L (3.4-5.0) gm/dl Medications Administered Current Inpatient Medications Acetaminophen (Acetaminophen 325 Mg Tab) 650 mg PO Q4H PRN PRN Reason: Pain or Fever Stop: 09/05/20 22:29 Last Admin: 08/08/20 11:16 Dose: 650 mg Documented by: Al Hydrox/Mg Hydrox/Simethicone (Aluminum/Magnesium Susp 30 Ml Udc) 15 ml PO Q4H PRN PRN Reason: Dyspepsia Stop: 09/05/20 22:29 Ascorbic Acid (Ascorbic Acid 500 Mg Tab) 500 mg PO DAILY [facility] Stop: 09/06/20 08:59 Last Admin: 08/08/20 08:27 Dose: 500 mg Documented by: Aspirin (Aspirin 81 Mg Ectab) 81 mg PO DAILY [facility] Stop: 09/06/20 08:59 Last Admin: 08/08/20 08:28 Dose: 81 mg Documented by: Dextrose (Dextrose 50% 50 Ml Syringe) 25 - 50 ml IV UD PRN; Protocol PRN Reason: Hypoglycemia Protocol Stop: 09/05/20 22:29 Glucagon (Glucagon For Inj 1 Mg Vial) 1 mg SQ UD PRN; Protocol PRN Reason: Hypoglycemia Protocol Stop: 09/05/20 22:29 Glucose (Glucose 10 Tabs/Tube) 4 - 8 tabs PO UD PRN; Protocol PRN Reason: Hypoglycemia Protocol Stop: 09/05/20 22:29 Glucose (Glucose 40% Gel 15 Gm Tube) 15 - 30 gm PO UD PRN; Protocol PRN Reason: Hypoglycemia Protocol Stop: 09/05/20 22:29 Ampicillin Sodium/Sulbactam Sodium 3,000 mg/ Sodium Chloride 108 mls @ 200 mls/hr IV Q6H [facility]; Protocol Stop: 08/13/20 22:14 Last Infusion: 08/08/20 16:29 Dose: Infused Documented by: Daptomycin 200 mg/ Syringe 4 mls @ 2 mls/min IV Q24H [facility]; Protocol Stop: 08/14/20 00:00 Last Admin: 08/07/20 23:52 Dose: 2 mls/min Documented by: Insulin Aspart (Insulin Aspart 100 Units/Ml 3 Ml Pen) 0 units SC ACHS [facility] Stop: 09/06/20 20:59 Last Admin: 08/08/20 13:26 Dose: 3 units Documented by: Insulin Glargine (Insulin Glargine Solostar 100 Units/Ml 3 Ml Pen) 10 units SC BID [facility] Stop: 09/06/20 20:59 Last Admin: 08/08/20 08:29 Dose: 10 units Documented by: Isosorbide Mononitrate (Isosorbide [place] Extended Rel 30 Mg Tabcr) 30 mg PO QAM [facility] Stop: 09/07/20 08:59 Last Admin: 08/08/20 08:27 Dose: 30 mg Documented by: Letrozole (Letrozole 2.5 Mg Tab) 2.5 mg PO QAM [facility] Stop: 09/06/20 08:59 Last Admin: 08/08/20 08:27 Dose: 2.5 mg Documented by: Magnesium Hydroxide (Magnesium Hydroxide Susp 30 Ml Udc) 30 ml PO Q12H PRN PRN Reason: Constipation Stop: 09/05/20 22:29 Metoprolol Tartrate (Metoprolol Tartrate 50 Mg Tab) [address] [facility] Stop: 09/06/20 08:59 Last Admin: 08/08/20 08:27 Dose: 50 mg Documented by: Miscellaneous (Carbohydrates For Hypoglycemia ) 15 - 30 gm PO UD PRN PRN Reason: Hypoglycemia Protocol Stop: 09/05/20 22:29 Miscellaneous Information (Daptomycin Consult Active) 1 ea N/A UD PRN PRN Reason: Consult Stop: 09/06/20 00:04 Morphine Sulfate (Morphine Sulfate 2 Mg/Ml Carp) 2 mg IV Q1H PRN PRN Reason: Pain Stop: 08/21/20 10:11 Multivitamins (Multivitamin Tab) [address] [facility] Stop: 09/06/20 08:59 Last Admin: 08/08/20 08:27 Dose: 1 tab Documented by: Ondansetron HCl (Ondansetron Inj 2 Mg/Ml 2 Ml Vial) 4 mg IV Q6H PRN PRN Reason: Nausea Stop: 09/05/20 22:29 Oxycodone/Acetaminophen (Oxycodone/Acetaminophen 5mg/325mg Tab) 1 tab PO Q4H PRN PRN Reason: Pain Stop: 08/21/20 10:11 Oxycodone/Acetaminophen (Oxycodone/Acetaminophen 5mg/325mg Tab) 2 tab PO Q4H PRN PRN Reason: Pain Stop: 08/21/20 10:11 Polyethylene Glycol (Polyethylene (Miralax) 17 Gm Pack) 17 gm PO DAILY PRN PRN Reason: Constipation Stop: 09/05/20 22:29 Rosuvastatin Calcium (Rosuvastatin Calcium 20 Mg Tab) [address] [facility] Stop: 09/06/20 08:59 Last Admin: 08/08/20 08:27 Dose: 20 mg Documented by: (1) T2DM (type 2 diabetes mellitus) Diabetes mellitus complication status: with other specified complication Diabetes mellitus technician terminal and repeater insulin use: unspecified technician terminal and repeater insulin use status Qualified Code(s): E11.69 - Type 2 diabetes mellitus with other specified complication (2) Breast cancer metastasized to bone Laterality: unspecified laterality Qualified Code(s): C50.919 - Malignant neoplasm of unspecified site of unspecified female breast; C79.51 - Secondary malignant neoplasm of bone
[2020-08-08 22:26] LABS: Basophils # (auto) 0.05 K/uL (0-0.2); Basophils % (auto) 0.5 %; Eosinophils # (auto) 0.31 K/uL (0-0.5); Hematocrit (blood only) 29.8 % (37-47); Hemoglobin 9.7 g/dL (12.0-16.0); Lymphocytes # (auto) 1.67 K/uL (1.2-3.4); Lymphocytes % (auto) 16.1 %; Mean Corpuscular Hemoglobin 30.5 pg (25-34); Mean Corpuscular Hgb Conc 32.6 g/dL (32-36); Mean Corpuscular Volume 93.7 fL (80-100); Mean Platelet Volume 9.6 fL (7.4-10.4); Monocytes # (auto) 1.18 K/uL (0.11-0.59); Monocytes % (auto) 11.3 %; Neutrophils # (auto) 7.09 K/uL (1.4-6.5); Neutrophils % (auto) 68.1 %; Platelet Count 164 K/uL (130-400); RDW Coefficient of Variation 14.4 % (11.5-14.5); RDW Standard Deviation 49.6 fL (36.4-46.3); Red Blood Count 3.18 M/uL (4.2-5.4)
[2020-08-08 22:38] LABS: Partial Thromboplastin Ratio 0.9; Partial Thromboplastin Time 25.1 Seconds (21.0-31.0)
[2020-08-08 22:48] LABS: Albumin Level 2.9 gm/dl (3.4-5.0); BUN Creatinine Ratio 17.5 (10-20); Calcium 8.7 mg/dl (8.5-10.1); Creatinine Clr Calc Pharmacy 28.1 ml/min; Est GFR (African American) 36.3; Est GFR (Non-African American) 31.3; Magnesium 2.2 mg/dl (1.8-2.4)
[2020-08-08 22:51] LABS: Albumin Globulin Ratio 0.7 (0.9-2); Bilirubin,Total 0.3 mg/dl (0.2-1); Globulin 4.4 gm/dl (2.5-4.0); Total Protein 7.3 gm/dl (6.4-8.2)
[2020-08-08] MEDS ORDERED: LACTATED RINGER'S 1,000 ML IV ONE (22:58)
--- NOTE | 2020-08-09 00:14 | CT Scan Report ---
ABDOMEN AND PELVIS CT WITHOUT CONTRAST CT DOSE: 575.09 mGy.cm HISTORY: Acute bilateral flank pain flank pain TECHNIQUE: Multiaxial CT images of the abdomen and pelvis were performed without contrast. A dose lo wering technique was utilized adhering to the principles of ALARA. COMPARISON STUDY: CT abdomen and pelvis 08/06/2020, PET CT 06/27/2019, chest CT 09/04/2010 FINDINGS: Coronary artery calcifications. Mild cardiomegaly. Subpleural 11 x 9 mm solid nodule of the left lower lobe with numerous subpleural nodules also again noted on the right measuring up to appro ximately 7 mm. These have decreased in size from the 2019 study suggestive of pulmonary metastasis No pneumatosis or pneumoperitoneum. Spleen, mildly atrophic pancreas and left adrenal and unremarkable. 11 mm right adrenal gland nodule. Mildly contracted gallbladder. Unremarkable liver. Mild nonspecific bilateral perinephric stranding. Renal sinus cysts are present bilaterally. No urete ral or ureteral calculi or obstructive uropathy. Pelvic floor relaxation with small cystocele. Unrema rkable uterus and adnexa. Calcified plaque of the abdominal aorta without aneurysm. No adenopathy. Th ere is no bowel obstruction or bowel wall thickening. Colonic diverticulosis. Mild to moderate fecal retention. Stool-filled terminal ileum. The appendix is not visualized. No secondary signs of acute a ppendicitis. No ascites or mesenteric inflammation. Decreased phlegmonous change in the inferior left buttock. No drainable fluid collection. Degenerative changes of the spine, pelvis and hips. IMPRESSION: 1. No bowel obstruction or bowel wall thickening. 2. Decreased phlegmonous change of the inferior medial left gluteal fold extending towards the anal r ing. No drainable fluid collection to suggest abscess. 3. No urolith or obstructive uropathy. 4. Bibasilar pulmonary nodules suggestive of pulmonary metastasis have decreased in size from the 06/17 PET/CT. 5. Additional findings as above. ACT 112: Negative or not required by law. The above report was generated using voice recognition software. It may contain grammatical, syntax o r spelling errors. Electronically signed by: Fransico Shah M.D. 08/09/2020 12:13 AM
--- NOTE | 2020-08-09 00:26 | Communication Note ---
Date of Service: August 09, 2020 Patient complaining of bilateral achy flank pain without leg radiation as per RN. " Spasm-like" as per patient No recollection of recent trauma. Patient denies abdominal pain, hematuria symptoms. Dark stools noted as per patient. PPE Minimal tenderness both flanks. RECTAL : Intact sphincter, dark stool (FOBT negative) serum crea 1.[address] abdomen pelvis: 1. No bowel obstruction or bowel wall thickening. 2. Decreased phlegmonous change of the inferior medial left gluteal fold extending towards the anal ring. No drainable fluid collection to suggest abscess. 3. No urolith or obstructive uropathy. 4. Bibasilar pulmonary nodules suggestive of pulmonary metastasis have decreased in size from the 06/27/2019 PET/CT. AP Flank pain, muscle spasm ARF Analgesia, antispasmodic as needed IVF Will relay to AM provider.
[2020-08-09 00:52] LABS: Appearance Urine Clear (Clear); Bilirubin Urine Negative (Negative); Blood Urine Negative (Negative); Color Urine Yellow; Epithelial Cell Urine Auto >30 /lpf (0-5); Glucose Urine UA Negative (Negative); Ketones Urine Trace (Negative); Leukocyte Esterase Urine 2+ (Negative); Nitrite Urine Negative (Negative); Protein Urine Negative (Negative); RBC Urine Automated 0-4 /hpf (0-4); Specific Gravity Urine 1.025 (1.000-1.030); Urobilinogen Urine Negative (Negative); WBC Urine Automated >30 /hpf (0-5)
[2020-08-09] MEDS: CLINDAMYCIN HCL 150 MG CAP PO SCH ×4 (00:55→22:25)
[2020-08-09 01:18] LABS: Bacteria Urine Automated 1+ (Negative); Mucus Urine Present (None Prsent)
[2020-08-09] MEDS: ISOSORBIDE MONO EXTENDED REL 30 MG TABCR PO SCH (08:48)
[2020-08-09] MEDS: ASCORBIC ACID 500 MG TAB PO SCH (08:48)
[2020-08-09] MEDS: MULTIVITAMIN TAB PO SCH (08:48)
[2020-08-09] MEDS: METOPROLOL TARTRATE 50 MG TAB PO SCH (08:48)
[2020-08-09] MEDS: ASPIRIN 81 MG ECTAB PO SCH (08:48)
[2020-08-09] MEDS: LETROZOLE 2.5 MG TAB PO SCH (09:33)
[2020-08-09] MEDS: INSULIN ASPART 100 UNITS/ML 3 ML PEN SC SCH ×4 (09:33→21:24)
[2020-08-09] MEDS: INSULIN GLARGINE SOLOSTAR 100 UNITS/ML 3 ML PEN SC SCH ×2 (09:33→21:23)
[2020-08-09] MEDS: tiZANidine HCL 4 MG TABLET PO PRN (13:38)
[2020-08-09] MEDS: ACETAMINOPHEN 325 MG TAB PO PRN ×2 (15:10→20:16)
[2020-08-09 17:36] LABS: BUN Creatinine Ratio 20.9 (10-20); Calcium 8.6 mg/dl (8.5-10.1); Creatinine Clr Calc Pharmacy 36.9 ml/min; Est GFR (African American) 50.4; Est GFR (Non-African American) 43.5; Potassium 4.2 mmol/L (3.5-5.1)
[2020-08-09] MEDS: cefTRIAXone SODIUM 1,000 MG in DEXTROSE 5% 50 ML IV SCH (17:37)
[2020-08-09] MEDS: SACCHAROMYCES BOULARDII 250 MG CAP PO SCH (17:38)
--- NOTE | 2020-08-09 18:18 | Hospitalist Progress Note ---
Date of Service August 09, 2020 Assessment & Plan (1) Perirectal abscess: s/p I&D in OR (08/07). Doing well post-op with repacking of wound this morning and no pain. Wound culture reveals MRSA. Swtich abx to clinda. Daily wound packing and PRN diarrhea. Staying hospitalized until diarrhea improves and wound heals and becomes more superficial. (2) Diarrhea: Likely a result of the abx, rule out c-diff. Added probiotic. (3) UTI (urinary tract infection): UA+. added empiric Rocephin. Uncertain if she had pyelo? She is afebrile now but still with flank pain which she describes as MSK. Monitor close response to abx. (4) Acute worsening of stage 3 chronic kidney disease: Initially improved to baseline, and then became worse overnight (Cr 1.5). She received IVF overnight and these were stopped this afternoon. She is now back to baseline again. Cont holding lisinopril with BP at goal. (5) Chronic ischemic heart disease: stable, cont medical management with ASA, Toprol and Imdur and statin. Cont holding lisinopril. (6) T2DM (type 2 diabetes mellitus): A1C 7.7. cont basal bolus insulin while hospitalized. Consider oral agent at discharge. Close PCP followup. 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 Grady Status post radiation and Femara. Cont trt plan per Oncology. (8) Hypertension: at goal. Hold lisinopril as above. (9) DVT prophylaxis: SCD/teds Chemoprophylaxis once cleared by surgery team post-operatively. Full Code Dispo-cont hospitalization on medical floor. Diarrhea is getting into the wound packing and requiring repacking to occur which she cannot manage at home. She is also now having UTI symptoms, flank pain and diarrhea. Jillian S[facility] DO [facility] Admission and Anticipated Discharge Date Admission Date: August 06, 2020 Subjective pt reports one day fever prior to arrival that has not returned she reports several days of bilateral flank pain that she feels is MSK in nature and which got worse overnight she does have some urinary urgency and dysuria present in the last couple of days, consistent with a possible UTI With the flank pain and fever this may have been more of a pyelo Added Rocephin while awaiting UCx results. Started pyridium for comfort. Reports 2-3 BMs today which is getting into the wound packing. She cannot manage this with repacking needs mulitple times daily at home-staying here for now. Added probiotics and checking stool for c-diff Manpreet pain and is ambulating. Tolerating PO. Review of Systems Review of Systems: All systems reviewed & are unremarkable except as noted in Subjective Physical Exam Physical Exam: CONSTITUTIONAL: WNWD, vitals as above, generally well- appearing EYES: normal conjunctivae, no scleral icterus ENT: external ear and nose normal, MMM RESPIRATORY: clear to auscultation bilaterally, no crackles, rales or wheezes, normal respiratory effort CARDIOVASCULAR: regular rate and rhythm, S1 and 2 heard without murmurs, gallops or rubs, no JVD, no peripheral edema GASTROINTESTINAL: soft, nontender, nondistended. Some bilateral cva tenderness/paraspinal muscle tenderness to palpation. MUSCULOSKELETAL: strength 5/5 throughout, head is normocephalic and atraumatic, neck supple, normal palpation of chest wall without tenderness SKIN: warm and dry, surgical incision is packed and dressed-this was not visualized by myself. NEUROLOGIC: CN 2-12 grossly intact, no gross focal deficits. PSYCHIATRIC: alert cooperative and oriented to person, place and time. Results & Data Results & Data ([facility]) Vital Signs (Past 12 Hours) Vital Signs Temp Pulse Pulse Resp BP Pulse Ox 08/09/20 17:31 36.5 C 47 L 18 122/70 96 08/09/20 06:59 36.5 C 57 L 16 161/80 H 96 Laboratory Results Short CBC 08/08/20 Range/Units 22:16 WBC 10.40 (4.8-10.8) K/uL Hgb 9.7 L (12.0-16.0) g/dL Hct 29.8 L (37-47) % Plt Count 164 (130-400) K/uL BMP 08/08/20 08/09/20 22:16 17:01 Sodium 139 139 Potassium 4.0 4.2 Chloride 109 H 108 H Carbon Dioxide 27 26 BUN 27 H 25 H Creatinine 1.55 H 1.18 D Glucose 113 H 121 H Calcium 8.7 8.6 Cardiac Enzymes 08/08/20 08/09/20 Range/Units 22:16 09:02 Total Creatine Kinase 198 H 172 (26-192) U/L Liver Function 08/08/20 Range/Units 22:16 Total Bilirubin 0.3 (0.2-1) mg/dl AST 40 H (15-37) U/L ALT 61 (12-78) U/L Alkaline Phosphatase 77 (45-117) U/L Albumin 2.9 L (3.4-5.0) gm/dl Urine 08/09/20 Range/Units 00:30 Urine Color Yellow Urine Appearance Clear (Clear) Urine pH 5.0 (4.5-7.5) Ur Specific [place] 1.025 (1.000-1.030) Urine Protein Negative (Negative) Urine Glucose (UA) Negative (Negative) Diagnostic Findings ABDOMEN AND PELVIS CT WITHOUT CONTRAST CT DOSE: 575.09 mGy.cm HISTORY: Acute bilateral flank pain flank pain TECHNIQUE: Multiaxial CT images of the abdomen and pelvis were performed without contrast. A dose lowering technique was utilized adhering to the principles of ALARA. COMPARISON STUDY: CT abdomen and pelvis 08/06/2020, PET CT 06/27/2019, chest CT 09/04/2010 FINDINGS: Coronary artery calcifications. Mild cardiomegaly. Subpleural 11 x 9 mm solid nodule of the left lower lobe with numerous subpleural nodules also again noted on the right measuring up to approximately 7 mm. These have decreased in size from the 2019 study suggestive of pulmonary metastasis No pneumatosis or pneumoperitoneum. Spleen, mildly atrophic pancreas and left adrenal and unremarkable. 11 mm right adrenal gland nodule. Mildly contracted gallbladder. Unremarkable liver. Mild nonspecific bilateral perinephric stranding. Renal sinus cysts are present bilaterally. No ureteral or ureteral calculi or obstructive uropathy. Pelvic floor relaxation with small cystocele. Unremarkable uterus and adnexa. Calcified plaque of the abdominal aorta without aneurysm. No adenopathy. There is no bowel obstruction or bowel wall thickening. Colonic diverticulosis. Mild to moderate fecal retention. Stool-filled terminal ileum. The appendix is not visualized. No secondary signs of acute appendicitis. No ascites or mesenteric inflammation. Decreased phlegmonous change in the inferior left buttock. No drainable fluid collection. Degenerative changes of the spine, pelvis and hips. IMPRESSION: 1. No bowel obstruction or bowel wall thickening. 2. Decreased phlegmonous change of the inferior medial left gluteal fold extending towards the anal ring. No drainable fluid collection to suggest abscess. 3. No urolith or obstructive uropathy. 4. Bibasilar pulmonary nodules suggestive of pulmonary metastasis have decreased in size from the 06/27/2019 PET/CT. 5. Additional findings as above. Medications Administered Current Inpatient Medications Acetaminophen (Acetaminophen 325 Mg Tab) 650 mg PO Q4H PRN PRN Reason: Pain or Fever Stop: 09/05/20 22:29 Last Admin: 08/09/20 15:10 Dose: 650 mg Documented by: Al Hydrox/Mg Hydrox/Simethicone (Aluminum/Magnesium Susp 30 Ml Udc) 15 ml PO Q4H PRN PRN Reason: Dyspepsia Stop: 09/05/20 22:29 Ascorbic Acid (Ascorbic Acid 500 Mg Tab) 500 mg PO DAILY [facility] Stop: 09/06/20 08:59 Last Admin: 08/09/20 08:48 Dose: 500 mg Documented by: Aspirin (Aspirin 81 Mg Ectab) 81 mg PO DAILY [facility] Stop: 09/06/20 08:59 Last Admin: 08/09/20 08:48 Dose: 81 mg Documented by: Clindamycin HCl (Clindamycin Hcl 150 Mg Cap) 450 mg PO Q8 [facility] Stop: 08/16/20 00:29 Last Admin: 08/09/20 13:40 Dose: 450 mg Documented by: Dextrose (Dextrose 50% 50 Ml Syringe) 25 - 50 ml IV UD PRN; Protocol PRN Reason: Hypoglycemia Protocol Stop: 09/05/20 22:29 Glucagon (Glucagon For Inj 1 Mg Vial) 1 mg SQ UD PRN; Protocol PRN Reason: Hypoglycemia Protocol Stop: 09/05/20 22:29 Glucose (Glucose 10 Tabs/Tube) 4 - 8 tabs PO UD PRN; Protocol PRN Reason: Hypoglycemia Protocol Stop: 09/05/20 22:29 Glucose (Glucose 40% Gel 15 Gm Tube) 15 - 30 gm PO UD PRN; Protocol PRN Reason: Hypoglycemia Protocol Stop: 09/05/20 22:29 Ceftriaxone Sodium 1,000 mg/ (Dextrose) 50 mls @ 100 mls/hr IV Q24H [facility]; Protocol Stop: 08/19/20 16:59 Last Infusion: 08/09/20 18:07 Dose: Infused Documented by: Insulin Aspart (Insulin Aspart 100 Units/Ml 3 Ml Pen) 0 units SC ACHS [facility] Stop: 09/06/20 20:59 Last Admin: 08/09/20 17:57 Dose: 7 units Documented by: Insulin Glargine (Insulin Glargine Solostar 100 Units/Ml 3 Ml Pen) 10 units SC BID [facility] Stop: 09/06/20 20:59 Last Admin: 08/09/20 09:33 Dose: 10 units Documented by: Isosorbide Mononitrate (Isosorbide [place] Extended Rel 30 Mg Tabcr) [facility] Stop: 09/07/20 08:59 Last Admin: 08/09/20 08:48 Dose: 30 mg Documented by: Letrozole (Letrozole 2.5 Mg Tab) 2.[address] [facility] Stop: 09/06/20 08:59 Last Admin: 08/09/20 09:33 Dose: 2.5 mg Documented by: Magnesium Hydroxide (Magnesium Hydroxide Susp 30 Ml Udc) 30 ml PO Q12H PRN PRN Reason: Constipation Stop: 09/05/20 22:29 Metoprolol Tartrate (Metoprolol Tartrate 50 Mg Tab) [address] [facility] Stop: 09/06/20 08:59 Last Admin: 08/09/20 08:48 Dose: 50 mg Documented by: Miscellaneous (Carbohydrates For Hypoglycemia ) 15 - 30 gm PO UD PRN PRN Reason: Hypoglycemia Protocol Stop: 09/05/20 22:29 Morphine Sulfate (Morphine Sulfate 2 Mg/Ml Carp) 2 mg IV Q1H PRN PRN Reason: Pain Stop: 08/21/20 10:11 Multivitamins (Multivitamin Tab) [address] [facility] Stop: 09/06/20 08:59 Last Admin: 08/09/20 08:48 Dose: 1 tab Documented by: Ondansetron HCl (Ondansetron Inj 2 Mg/Ml 2 Ml Vial) 4 mg IV Q6H PRN PRN Reason: Nausea Stop: 09/05/20 22:29 Oxycodone/Acetaminophen (Oxycodone/Acetaminophen 5mg/325mg Tab) 1 tab PO Q4H PRN PRN Reason: Pain Stop: 08/21/20 10:11 Oxycodone/Acetaminophen (Oxycodone/Acetaminophen 5mg/325mg Tab) 2 tab PO Q4H PRN PRN Reason: Pain Stop: 08/21/20 10:11 Phenazopyridine HCl (Phenazopyridine Hcl 100 Mg Tab) 100 mg PO TID [facility] Stop: 08/12/20 20:59 Polyethylene Glycol (Polyethylene (Miralax) 17 Gm Pack) 17 gm PO DAILY PRN PRN Reason: Constipation Stop: 09/05/20 22:29 Rosuvastatin Calcium (Rosuvastatin Calcium 20 Mg Tab) 20 mg PO QAM [facility] Stop: 09/06/20 08:59 Last Admin: 08/08/20 08:27 Dose: 20 mg Documented by: Saccharomyces Boulardii (Saccharomyces Boulardii 250 Mg Cap) 250 mg PO DAILY [facility] Stop: 09/08/20 16:59 Last Admin: 08/09/20 17:38 Dose: 250 mg Documented by: Tizanidine HCl (Tizanidine Hcl 4 Mg Tablet) 2 mg PO TID PRN PRN Reason: spasm Stop: 09/08/20 00:22 Last Admin: 08/09/20 13:38 Dose: 2 mg Documented by: (1) T2DM (type 2 diabetes mellitus) Diabetes mellitus complication status: with other specified complication 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
[2020-08-09] MEDS: PHENAZOPYRIDINE HCL 100 MG TAB PO SCH (19:56)
[2020-08-10] MEDS: CLINDAMYCIN HCL 150 MG CAP PO SCH ×3 (06:07→20:49)
[2020-08-10 07:34] LABS: Hematocrit (blood only) 28.9 % (37-47); Hemoglobin 9.4 g/dL (12.0-16.0); Mean Corpuscular Hemoglobin 30.2 pg (25-34); Mean Corpuscular Hgb Conc 32.5 g/dL (32-36); Mean Corpuscular Volume 92.9 fL (80-100); Mean Platelet Volume 9.9 fL (7.4-10.4); Platelet Count 154 K/uL (130-400); RDW Coefficient of Variation 14.6 % (11.5-14.5); RDW Standard Deviation 48.9 fL (36.4-46.3); Red Blood Count 3.11 M/uL (4.2-5.4); White Blood Count 7.18 K/uL (4.8-10.8)
[2020-08-10 08:08] LABS: BUN Creatinine Ratio 17.7 (10-20); Calcium 8.9 mg/dl (8.5-10.1); Creatinine Clr Calc Pharmacy 41.8 ml/min; Est GFR (African American) 58.8; Est GFR (Non-African American) 50.7
[2020-08-10] MEDS: PHENAZOPYRIDINE HCL 100 MG TAB PO SCH ×3 (09:11→20:50)
[2020-08-10] MEDS: ROSUVASTATIN CALCIUM 20 MG TAB PO SCH (09:11)
[2020-08-10] MEDS: SACCHAROMYCES BOULARDII 250 MG CAP PO SCH (09:12)
[2020-08-10] MEDS: INSULIN ASPART 100 UNITS/ML 3 ML PEN SC SCH ×4 (09:13→20:39)
[2020-08-10] MEDS: INSULIN GLARGINE SOLOSTAR 100 UNITS/ML 3 ML PEN SC SCH ×2 (09:14→20:39)
[2020-08-10] MEDS: ASPIRIN 81 MG ECTAB PO SCH (09:49)
[2020-08-10] MEDS: LETROZOLE 2.5 MG TAB PO SCH (09:49)
[2020-08-10] MEDS: MULTIVITAMIN TAB PO SCH (09:49)
[2020-08-10] MEDS: ISOSORBIDE MONO EXTENDED REL 30 MG TABCR PO SCH (09:50)
[2020-08-10] MEDS: METOPROLOL TARTRATE 50 MG TAB PO SCH (09:50)
[2020-08-10] MEDS: ASCORBIC ACID 500 MG TAB PO SCH (09:50)
--- NOTE | 2020-08-10 16:57 | Hospitalist Progress Note ---
Date of Service August 10, 2020 Assessment & Plan (1) Perirectal abscess: s/p I&D in OR (08/07). Doing well post-op with daily repacking of wound and min pain. Wound culture reveals MRSA. On clinda 450mg PO q8 x 7 days. Daily wound packing and PRN diarrhea. Staying hospitalized until diarrhea improves and wound heals and becomes more superficial. Probiotics added yesterday (2) Acute pyelonephritis: UA+, culture still pending. added empiric Rocephin with some improvement today. Symptoms reported for two weeks including dysuria and flank pain. Fevers and chills reported one day at home [facility] but this may have been relatd to her abscess. Monitor close response to abx. (3) Diarrhea: Likely a result of the abx, c-diff was checked and negative. Added probiotic. (4) Acute worsening of stage 3 chronic kidney disease: resolved to baseline. cont holding home lisinopril with BP at goal. (5) Chronic ischemic heart disease: stable, cont medical management with ASA, Toprol and Imdur and statin. Cont holding lisinopril. (6) T2DM (type 2 diabetes mellitus): A1C 7.7. cont basal bolus insulin while hospitalized. Consider oral agent at discharge. Close PCP followup. 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 Grady Status post radiation and Femara. Cont trt plan per Oncology. (8) Hypertension: at goal. Hold lisinopril as above. (9) DVT prophylaxis: Lovenox Full Code Dispo-cont hospitalization on medical floor. Diarrhea is getting into the wound packing and requiring repacking to occur which she cannot manage at home. Also awaiting UCx results to narrow abx correctly and monitoring response to abx. Jillian Sácnhez DO [facility] Admission and Anticipated Discharge Date Admission Date: August 06, 2020 Subjective feeling well today one episode of explosive stool still reporting bilateral flank pain dysuria has improved on new abx and pyridium overnihgt denies fevers or chills clarified with patient that flank pain ongoing for 2 weeks and she was having urinary symptoms at that time, also. Review of Systems Review of Systems: All systems reviewed & are unremarkable except as noted in Subjective Physical Exam Physical Exam: CONSTITUTIONAL: WNWD, vitals as above, generally well- appearing EYES: normal conjunctivae, no scleral icterus ENT: external ear and nose normal, MMM RESPIRATORY: clear to auscultation bilaterally, no crackles, rales or wheezes, normal respiratory effort CARDIOVASCULAR: regular rate and rhythm, S1 and 2 heard without murmurs, gallops or rubs, no JVD, no peripheral edema GASTROINTESTINAL: soft, nontender, nondistended. no CVA tenderness MUSCULOSKELETAL: strength 5/5 throughout, head is normocephalic and atraumatic, neck supple, normal palpation of chest wall without tenderness SKIN: warm and dry, surgical incision is packed and dressed-this was not visualized by myself. NEUROLOGIC: CN 2-12 grossly intact, no gross focal deficits. PSYCHIATRIC: alert cooperative and oriented to person, place and time. Results & Data Results & Data ([facility]) Vital Signs (Past 12 Hours) Vital Signs Temp Pulse Resp BP Pulse Ox 08/10/20 15:24 37.1 C 61 16 130/67 95 08/10/20 08:10 37 C 64 18 193/76 H 95 Laboratory Results Short CBC 08/10/20 Range/Units 07:20 WBC 7.18 (4.8-10.8) K/uL Hgb 9.4 L (12.0-16.0) g/dL Hct 28.9 L (37-47) % Plt Count 154 (130-400) K/uL BMP 08/09/20 08/10/20 17:01 07:20 Sodium 139 140 Potassium 4.2 4.0 Chloride 108 H 109 H Carbon Dioxide 26 26 BUN 25 H 18 Creatinine 1.18 D 1.04 Glucose 121 H 115 H Calcium 8.6 8.9 Medications Administered Current Inpatient Medications Acetaminophen (Acetaminophen 325 Mg Tab) 650 mg PO Q4H PRN PRN Reason: Pain or Fever Stop: 09/05/20 22:29 Last Admin: 08/09/20 20:16 Dose: 650 mg Documented by: Al Hydrox/Mg Hydrox/Simethicone (Aluminum/Magnesium Susp 30 Ml Udc) 15 ml PO Q4H PRN PRN Reason: Dyspepsia Stop: 09/05/20 22:29 Ascorbic Acid (Ascorbic Acid 500 Mg Tab) 500 mg PO DAILY [facility] Stop: 09/06/20 08:59 Last Admin: 08/10/20 09:50 Dose: 500 mg Documented by: Aspirin (Aspirin 81 Mg Ectab) 81 mg PO DAILY [facility] Stop: 09/06/20 08:59 Last Admin: 08/10/20 09:49 Dose: 81 mg Documented by: Clindamycin HCl (Clindamycin Hcl 150 Mg Cap) 450 mg PO Q8 [facility] Stop: 08/16/20 00:29 Last Admin: 08/10/20 13:20 Dose: 450 mg Documented by: Dextrose (Dextrose 50% 50 Ml Syringe) 25 - 50 ml IV UD PRN; Protocol PRN Reason: Hypoglycemia Protocol Stop: 09/05/20 22:29 Glucagon (Glucagon For Inj 1 Mg Vial) 1 mg SQ UD PRN; Protocol PRN Reason: Hypoglycemia Protocol Stop: 09/05/20 22:29 Glucose (Glucose 10 Tabs/Tube) 4 - 8 tabs PO UD PRN; Protocol PRN Reason: Hypoglycemia Protocol Stop: 09/05/20 22:29 Glucose (Glucose 40% Gel 15 Gm Tube) 15 - 30 gm PO UD PRN; Protocol PRN Reason: Hypoglycemia Protocol Stop: 09/05/20 22:29 Ceftriaxone Sodium 1,000 mg/ (Dextrose) 50 mls @ 100 mls/hr IV Q24H [facility]; Protocol Stop: 08/19/20 16:59 Last Infusion: 08/09/20 18:07 Dose: Infused Documented by: Insulin Aspart (Insulin Aspart 100 Units/Ml 3 Ml Pen) 0 units SC ACHS [facility] Stop: 09/06/20 20:59 Last Admin: 08/10/20 13:20 Dose: 1 units Documented by: Insulin Glargine (Insulin Glargine Solostar 100 Units/Ml 3 Ml Pen) 10 units SC BID [facility] Stop: 09/06/20 20:59 Last Admin: 08/10/20 09:14 Dose: 10 units Documented by: Isosorbide Mononitrate (Isosorbide [place] Extended Rel 30 Mg Tabcr) 30 mg PO QAM [facility] Stop: 09/07/20 08:59 Last Admin: 08/10/20 09:50 Dose: 30 mg Documented by: Letrozole (Letrozole 2.5 Mg Tab) 2.5 mg PO QAM [facility] Stop: 09/06/20 08:59 Last Admin: 08/10/20 09:49 Dose: 2.5 mg Documented by: Magnesium Hydroxide (Magnesium Hydroxide Susp 30 Ml Udc) 30 ml PO Q12H PRN PRN Reason: Constipation Stop: 09/05/20 22:29 Metoprolol Tartrate (Metoprolol Tartrate 50 Mg Tab) 50 mg PO QAM [facility] Stop: 09/06/20 08:59 Last Admin: 08/10/20 09:50 Dose: 50 mg Documented by: Miscellaneous (Carbohydrates For Hypoglycemia ) 15 - 30 gm PO UD PRN PRN Reason: Hypoglycemia Protocol Stop: 09/05/20 22:29 Morphine Sulfate (Morphine Sulfate 2 Mg/Ml Carp) 2 mg IV Q1H PRN PRN Reason: Pain Stop: 08/21/20 10:11 Multivitamins (Multivitamin Tab) [facility] Stop: 09/06/20 08:59 Last Admin: 08/10/20 09:49 Dose: 1 tab Documented by: Ondansetron HCl (Ondansetron Inj 2 Mg/Ml 2 Ml Vial) 4 mg IV Q6H PRN PRN Reason: Nausea Stop: 09/05/20 22:29 Oxycodone/Acetaminophen (Oxycodone/Acetaminophen 5mg/325mg Tab) 1 tab PO Q4H PRN PRN Reason: Pain Stop: 08/21/20 10:11 Oxycodone/Acetaminophen (Oxycodone/Acetaminophen 5mg/325mg Tab) 2 tab PO Q4H PRN PRN Reason: Pain Stop: 08/21/20 10:11 Phenazopyridine HCl (Phenazopyridine Hcl 100 Mg Tab) 100 mg PO TID [facility] Stop: 08/12/20 20:59 Last Admin: 08/10/20 13:19 Dose: 100 mg Documented by: Polyethylene Glycol (Polyethylene (Miralax) 17 Gm Pack) 17 gm PO DAILY PRN PRN Reason: Constipation Stop: 09/05/20 22:29 Rosuvastatin Calcium (Rosuvastatin Calcium 20 Mg Tab) 20 mg PO QAM [facility] Stop: 09/06/20 08:59 Last Admin: 08/10/20 09:11 Dose: 20 mg Documented by: Saccharomyces Boulardii (Saccharomyces Boulardii 250 Mg Cap) 250 mg PO DAILY [facility] Stop: 09/08/20 16:59 Last Admin: 08/10/20 09:12 Dose: 250 mg Documented by: Tizanidine HCl (Tizanidine Hcl 4 Mg Tablet) 2 mg PO TID PRN PRN Reason: spasm Stop: 09/08/20 00:22 Last Admin: 08/09/20 13:38 Dose: 2 mg Documented by: (1) T2DM (type 2 diabetes mellitus) Diabetes mellitus complication status: with other specified complication Diabetes mellitus fpc insulin use: unspecified fpc insulin use status Qualified Code(s): E11.69 - Type 2 diabetes mellitus with other specified complication (2) Breast cancer metastasized to bone Laterality: unspecified laterality Qualified Code(s): C50.919 - Malignant neoplasm of unspecified site of unspecified female breast; C79.51 - Secondary malignant neoplasm of bone
[2020-08-10] MEDS ORDERED: ENOXAPARIN INJ 40 MG/0.4 ML SYR SQ SCH (18:00)
[2020-08-10] MEDS: cefTRIAXone SODIUM 1,000 MG in DEXTROSE 5% 50 ML IV SCH (18:04)
[2020-08-11] MEDS ORDERED: METOPROLOL TARTRATE 50 MG TAB PO SCH (05:25)
[2020-08-11] MEDS: CLINDAMYCIN HCL 150 MG CAP PO SCH ×2 (06:08→12:51)
[2020-08-11 07:21] VITALS: TEMP 98.8; O2SAT 95
[2020-08-11] MEDS: INSULIN ASPART 100 UNITS/ML 3 ML PEN SC SCH ×2 (09:08→12:48)
[2020-08-11] MEDS: ASPIRIN 81 MG ECTAB PO SCH (09:09)
[2020-08-11] MEDS: tiZANidine HCL 4 MG TABLET PO PRN (09:10)
[2020-08-11] MEDS: ROSUVASTATIN CALCIUM 20 MG TAB PO SCH (09:12)
[2020-08-11] MEDS: ASCORBIC ACID 500 MG TAB PO SCH (09:13)
[2020-08-11] MEDS: MULTIVITAMIN TAB PO SCH (09:13)
[2020-08-11] MEDS: ISOSORBIDE MONO EXTENDED REL 30 MG TABCR PO SCH (09:14)
[2020-08-11] MEDS: LETROZOLE 2.5 MG TAB PO SCH (09:14)
[2020-08-11] MEDS: PHENAZOPYRIDINE HCL 100 MG TAB PO SCH ×2 (09:15→12:51)
[2020-08-11] MEDS: SACCHAROMYCES BOULARDII 250 MG CAP PO SCH (09:15)
[2020-08-11] MEDS: INSULIN GLARGINE SOLOSTAR 100 UNITS/ML 3 ML PEN SC SCH (09:16)
--- NOTE | 2020-08-11 14:00 | Discharge Summary ---
Date of Service August 11, 2020 Admission HPI Per Admitting Provider This is an 79-year-old female who has significant past medical history of chronic ischemic heart disease with history of angioplasty and stent, history of left breast CA with mets to lung and bone currently in remission, HTN, HLD, CKD stage III who presents to ED secondary to left buttock pain x 1wk. She states over the last few days she began feeling a lump in her left buttock. It was painful. She felt like it was a boil. Over the past 1 to 2 days she started to notice bloody drainage coming from area. She has never had anything like this in the past. She was seen by PCP today. Due to concern for abscess she was sent to ED for further evaluation. Patient denies any fever, chills, sweats, lightheadedness, dizziness, chest pain, shortness breath, cough, nausea, vomiting, abdominal pain. She does elicit yesterday she had a 2 to 3-hour window of ill feeling, diarrhea and nausea, but this has since passed. She denies sick contacts. Her appetite has been slightly decreased. 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 Grady in oncology and felt to be stable. She also received her flu vaccine today. In ED patient made hemodynamically stable. Lab work notable for WBC 12.37, H&H 11.0 and 33.2, platelet 183, BUN 26, creatinine 1.47, glucose 159, AST 62, ALT 85 CT scan abdomen pelvis performed which revealed phlegmonous change in the inferior left buttock with surrounding cellulitis, no organized or drainable fluid collection identified. Inflammatory changes approaching the inferior aspect of the anal ring at 4:00. She received IV Unasyn in ED. Admission Exam Per Admitting Provider Constitutional: WD/WN, vitals as above, NAD, sitting up in bed, pleasant, conversing easily Head: Normocephalic, Atraumatic Eyes: PERRL, conjunctivae normal, anicteric sclerae ENMT: external ear and nose normal, oropharynx normal Neck: trachea midline, no thyromegaly normal visual inspection Respiratory: normal respiratory effort, lungs clear to auscultation, no wheeze, rales, rhonchi. Normal insp/exp effort, no accessory muscle use Cardiovascular: RRR, no murmur, no edema Vessels: no JVD or carotid bruit Chest: normal inspection of chest Abdomen: normal bowel sounds, soft, nontender, no hepatosplenomegaly Musculoskeletal: no cyanosis or clubbing, extremities motor strength 5/5 Skin: no rashes, warm and dry normal turgor Neurologic: PERRL, EOMI, accommodation nl, no face palsy, no dysarthria CN's II-XI intact bilaterally and moves all extremities Psychiatric: A+Ox3, euthymic affect Lymphatic: no cervical or axillary lymphadenopathy : +large carbuncle noted L gluteal crease, firm but fluctuant in center, surrounding erythema, warmth, tender to palpation, serosanguineous drainage noted, extends from gluteal crease to anus Principal Diagnosis Perirectal abscess s/p I&D in OR (08/07) Acute worsening of stage 3 chronic kidney disease T2DM type 2 diabetes mellitus-new onset Discharge Exam CONSTITUTIONAL: WNWD, vitals as above, generally well-appearing EYES: normal conjunctivae, no scleral icterus ENT: external ear and nose normal, MMM RESPIRATORY: clear to auscultation bilaterally, no crackles, rales or wheezes, normal respiratory effort CARDIOVASCULAR: regular rate and rhythm, S1 and 2 heard without murmurs, gallops or rubs, no JVD, no peripheral edema GASTROINTESTINAL: soft, nontender, nondistended. MUSCULOSKELETAL: strength 5/5 throughout, head is normocephalic and atraumatic, neck supple, normal palpation of chest wall without tenderness SKIN: warm and dry, surgical incision with packing in place and no drainage. NEUROLOGIC: CN 2-12 grossly intact, no gross focal deficits. PSYCHIATRIC: alert cooperative and oriented to person, place and time. Discharge Data Allergies Allergy/AdvReac Type Severity Reaction Status Date / Time No Known Allergies Verified 06/04/20 07:04 Consultations 08/06/20 21:08 ED Decision to Admit Stat 08/06/20 21:50 Consult General Surgery Routine 08/06/20 22:30 Consult Case Management - Discharge Planning Routine 08/07/20 19:18 Consult Infectious Diseases Routine Procedures Performed Operation Date: 08/07/20 08:00 Actual Procedures p Incision and Drainage Perirectal Abscess - Holger Vance DO Ordered Studies 08/06/20 19:29 CT abd pelvis IV con only Stat 08/08/20 22:57 CT abd pelvis wo con Urgent Diabetes Follow up Diabetes Follow-up Needed for Newly Diagnosed Diabetes Hospital Course (1) Perirectal abscess: (2) Diarrhea: (3) Breast cancer metastasized to bone: (4) Acute renal failure: (5) T2DM (type 2 diabetes mellitus): The patient is an 79-year-old female who presented with left buttock pain for one week and was found to have a perirectal abscess. She was admitted to the hospitalist service and started on Unasyn. Lab work also revealed an elevated creatinine from baseline of 1.0 and lisinopril was held with gentle IV fluids given in a return of creatinine to baseline with following lab checks. Lab work also revealed mildly elevated LFTs with an initial AST of 62 and ALT of 85. Her statin medication was held and this trended down. Further monitoring can be done as outpatient. General surgery was consulted and she was taken to the operating room on 08/07 for incision and drainage of the perirectal abscess with packing. No fistula or mass was noted on exam and she recovered well. She did experience some dysuria and initial urinalysis was positive in addition to some bilateral flank pain which had been going on for a couple of weeks. With her clinical description of symptoms acute pyelonephritis was considered and she was started on Rocephin for short period of time, however, the urine culture was negative and she was not continued on further antibiotics for a urine or kidney infection. Flank pain was considered musculoskeletal as this was improved with a heating pad. She was continued on clindamycin for total 7 days antibiotic therapy status post incision and drainage of her abscess. The abscess culture did reveal evidence of MRSA. The patient did experience some diarrhea while in the hospital which frequently got into her packing area causing the wound to need to be packed more often than just daily. For this reason she was kept in the hospital until the diarrhea improved. C. difficile toxin was checked and negative and probiotics did improve this. Additional lab work included a hemoglobin A1c which was 7.7. The patient notably did not have a formal history of type 2 diabetes mellitus. She was placed on basal bolus insulin and during the hospitalization and has a close follow-up with primary care to discuss further long-term treatments for this condition. She was seen by the diabetic nurse educator while she was hospitalized. At time of discharge she was mentating and ambulating at baseline and tolerating p.o. She was hemo dynamically stable and afebrile and was sent home in stable condition with close primary care follow-up recommended. She was sent home with home health for daily wound packing and close surgical follow-up as well. Total Time Total Time Spent Total Time Spent (In Minutes): 60 Total Time Includes: Examination of the Patient, Discharge Planning, Medication Reconciliation and Communication With Other Providers Discharge Plan Discharge Items Patient Disposition: Home - Home Health Services Reason For Visit: BUTTOX CELLULITIS Discharge Diagnosis: Perirectal abscess s/p I&D in OR (08/07) Acute worsening of stage 3 chronic kidney disease T2DM type 2 diabetes mellitus-new onset Condition on Discharge: Good Activity: Resume your previous activity Non-emergency contact: Primary Care Provider Call non-emergency contact if: you have any medication questions, your symptoms worsen, your pain is not controlled, your pain is concerning for you, you have a fever, your wound has increased redness, your wound has increased drainage and your wound pain has increased Follow-up/Referrals: Holger Vance DO [Physician] - 08/14/20 9:30 am (Please call to schedule follow up in clinic next week with Dr. Vance.) John Moody MD [Primary Care Provider] - 08/13/20 11:00 am (Date & Time 08/13/2020 11:00 AM Provider John Moody MD Department [facility] ) Diet: Carb Consistent or DM2 Addtl Attending Provider Instructions: Please take all medications as instructed. Please complete the antibiotic course given. Please followup with the surgery office on for follow-up as we discussed and follow all post operative instructions. Home health nursing will be visiting with you daily to repack your wound. This is being set up through our inpatient leather case finisher here at the hospital. It is recommended that you follow-up with your primary care physician within one week of discharge to ensure you are still doing well after being discharged from the hospital. You also were seen to have an elevated hemoglobin A1C and will need to discuss this further with your PCP (Dr. Moody). An elevated A1C is a screening test for diabetes, and if elevated means that you have diabetes which needs to be addressed with medications or diet changes sooner than later. It was a pleasure taking care of you! Please call if you have any questions or problems. You can reach a [facility] hospitalist on duty at [facility] 24 hours a day by calling [phone]. Take care of yourself. Jillian Sánchez DO [facility] Hospitalist Addtl Secret Code Expert Provider Instructions: Your wound should be packed daily with 1/4" nu gauze, covered with dry 4x4 gauze and ABD pad, and adhered with medical tape. If you have a tub at home you should undergo daily Sitz baths prior to the daily dressing change Pending Studies at Discharge: No Stand-Alone Forms: My [facility], Smoking Cessation Medications and DC Order Prescriptions: New clindamycin HCl 150 mg Capsule 450 mg PO Q8 Qty: 18 RF: 0 Continued lisinopril 5 mg tablet 5 mg PO QAM RF: 0 metoprolol tartrate 50 mg tablet 50 mg PO QAM RF: 0 multivitamin tablet 1 tab PO QAM RF: 0 letrozole [Femara] 2.5 mg tablet 2.5 mg PO QAM RF: 0 aspirin 81 mg Tablet,Delayed Release (Dr/Ec) 81 mg PO DAILY RF: 0 ascorbic acid (vitamin C) 500 mg Tablet 500 mg PO DAILY RF: 0 Xgeva 120 mg/1.7 mL (70 mg/mL) solution 120 mg SUBCUT Q4WK RF: 0 isosorbide mononitrate 30 mg tablet extended release 24 hr 30 mg PO QAM RF: 0 Discharge Orders: Discharge Order (Routine); Ordered 08/11/20 Ordered By: Jillian Copeland/Other Patient Handouts: Managing Type 2 Diabetes, Diabetes: Meal Planning, A1C Admission Data Admit Date/Time: 08/06/20 21:18 Attending Provider: Jillian Sánchez Admit Provider: Torey Sigala Primary Care Provider: John Moody Other Providers: Holger Vance ; Elvis Blake ; [facility] ; Miguel Powers ; Louie Villanueva ; Geo Donis I. ; Angelo Kuhn II ; Veronica Nathan ; Georges Flor Other Interventions: Discharge Summary Assessment (RN) Last Done: 08/11/20 14:07
[2020-08-11 14:15] VITALS: BP 151/72; PULSE 62
== END 2020-08-11 15:49 | disposition home health service (06) | DRG 345 ==
LOC: ED 17:04 → 3N 21:18 → SUATTDRO 21:18 → 3N 22:21

== ENCOUNTER 2022-04-29 13:13 | Inpatient (IN) ==
[2022-04-29 14:00] LABS: Basophils # (auto) 0.05 K/uL (0-0.2); Basophils % (auto) 0.8 %; Eosinophils # (auto) 0.02 K/uL (0-0.50); Eosinophils % (auto) 0.3 %; Hematocrit (blood only) 30.4 % (34.1-44.9); Hemoglobin 9.9 g/dl (12.0-16.0); Immature Granulocytes # (auto) 0.02 K/uL (0.00-0.02); Immature Granulocytes % (auto) 0.3 %; Lymphocytes % (auto) 12.6 %; Mean Corpuscular Hemoglobin 28.9 pg (25.0-34.0); Mean Corpuscular Hgb Conc 32.6 g/dL (32.0-36.0); Mean Corpuscular Volume 88.9 fL (80.0-100.0); Monocytes # (auto) 0.69 K/uL (0.24-0.82); Monocytes % (auto) 10.9 %; Neutrophils # (auto) 4.75 K/uL (1.4-6.5); Neutrophils % (auto) 75.1 %; Platelet Count 185 K/uL (130-400); RDW Coefficient of Variation 14.4 % (11.5-14.5); RDW Standard Deviation 46.7 fL (36.4-46.3); Red Blood Count 3.42 M/uL (3.93-5.22); White Blood Count 6.33 K/ul (4.8-10.8)
--- NOTE | 2022-04-29 14:17 | XRay Report ---
XR chest 1V portable HISTORY: Atypical Chest Pain COMPARISON: Chest 10/04/2010. FINDINGS: No pneumothorax. Moderate right pleural effusion with right basilar densities. The left javier g appears clear. The heart is normal in size. No left-sided pleural effusion. IMPRESSION: 1. Moderate right pleural effusion. 2. Right basilar densities favor atelectasis from the pleural effusion. ACT 112: Negative or not required by law. Electronically signed by: Jaxson Carrillo M.D. 04/29/2022 2:16 PM
[2022-04-29 14:19] LABS: INR 1.1 (0.9-1.1); Partial Thromboplastin Ratio 0.9; Partial Thromboplastin Time 23.9 Seconds (21.0-31.0); Prothrombin Time 11.4 Seconds (9.0-12.0)
[2022-04-29 14:28] LABS: Troponin I High Sensitivity 24.1 pg/ml (0-14)
--- NOTE | 2022-04-29 14:33 | CT Scan Report ---
CT head/brain wo con CLINICAL HISTORY: fall Technique: Contiguous axial CT images of the head were acquired from the base of the skull to the ortiz gomez without intravenous contrast administration. Images were viewed in brain, subdural and [facility]. Automated dose lowering techniques and/or adjustment according to patient size were utilized for this exam. Comparison: None available at the time of this dictation. Findings: Areas of decreased attenuation are present in the periventricular and subcortical white matter bilate rally consistent with small vessel ischemic disease. Generalized cerebral atrophy with commensurate e nlargement of the ventricles, sulci, and cisterns is also present. There is no acute intracranial hem orrhage or evidence of acute territorial infarction. No shift of the midline structures, mass effect, or extra-axial abnormalities are shown. Atherosclerotic calcifications are present in the intracran ial segments of the internal carotid arteries. Imaged portions of the paranasal sinuses and mastoid air cells are clear. The orbits appear normal. There are no acute fractures of the calvaria or scalp swelling. Impression: No acute intracranial hemorrhage, no evidence of acute territorial infarction or other acute intracra nial disease process. ACT 112: Negative or not required by law. Electronically signed by: Gianni Ferrera M.D. 04/29/2022 2:32 PM
[2022-04-29 14:36] LABS: BUN Creatinine Ratio 18.3 (10-20); Calcium 10.1 mg/dl (8.5-10.1); Creatinine Clr Calc Pharmacy 33.7 ml/min; D Dimer 8150 ug/L FEU (0-500); Est GFR (African American) 48.7 ml/min; Est GFR (Non-African American) 42.1 ml/min; Potassium 3.8 mmol/L (3.5-5.1)
[2022-04-29] MEDS ORDERED: OPTIRAY 320 125ml IV ONE (15:00)
--- NOTE | 2022-04-29 15:24 | Electrocardiogram Report ---
Test Reason : Blood Pressure : / mmHG Vent. Rate : 097 BPM Atrial Rate : 097 BPM P-R Int : 156 ms QRS Dur : 076 ms QT Int : 344 ms P-R-T Axes : 085 036 017 degrees QTc Int : 436 ms Sinus rhythm with frequent Premature ventricular complexes Otherwise normal ECG When compared with ECG of 07-AUG-2020 07:48, Premature ventricular complexes are now Present Vent. rate has increased BY 38 BPM Confirmed by Anthony Perry ([id number]) on 04/29/2022 3:23:36 PM Referred By: ED Confirmed By:Bhavesh Perry
--- NOTE | 2022-04-29 15:30 | CT Scan Report ---
CT angio chest PE protocol CLINICAL HISTORY: ro pe TECHNIQUE: Multidetector row helical CT of the chest was performed with angiographic protocol. Rodriguez l and sagittal reformations were obtained. Coronal and sagittal MIPS were obtained from the axial chapin a set and were submitted for review. Automated dose lowering techniques and/or adjustment according to patient size were utilized for this exam. CT DOSE: 297.59 mGy.cm Comparison: Comparison is made to CT radiation therapy 07/05/[address] abdomen pelvis 08/08/2020 FINDINGS: Lungs and pleura: There is a large right pleural effusion with associated atelectasis. Numerous pulmo nary nodules are seen. These include a 13 mm pleural-based nodule in the right upper lobe (image 216) , a 4 mm pleural-based nodule in the left lower lobe (image 94), and an 11 mm nodule in the left lung base (image 67). 10 mm broad based densities in the left posterior lung, unchanged from prior. Heart and pericardium: Heart size is normal. No pericardial effusion. Vessels: No evidence of pulmonary embolism. Incidental note is made of common origin of the left inte rnal carotid artery in the right innominate artery. Mediastinum and kathleen: Unremarkable. Chest wall and lower neck: A soft tissue nodular focus is seen in the left chest wall. Postsurgical c hanges are noted. Abdomen: Unremarkable. Bones: Degenerative changes in the thoracic spine. IMPRESSION: 1. Multiple nodules, predominantly pleural-based, are seen bilaterally. Findings are concerning for recurrent disease in this patient with history of metastatic breast cancer. 2. Interval development of a large right pleural effusion, malignant effusion should be considered. 3. No evidence of pulmonary embolism. ACT 112: Negative or not required by law. Electronically signed by: Gianni Ferrera M.D. 04/29/2022 3:28 PM
--- NOTE | 2022-04-29 16:47 | Emergency Department Note ---
History of Present Illness General Chief Complaint: Shortness of Breath/Dyspnea Stated Complaint: SOB Time Seen by Provider: 04/29/22 13:18 History of Present Illness Provider Complaint: shortness of breath Onset (ago): day(s) (4) Severity: mild Consistency/Duration: + progressively worsening Relieved By: + nothing Exacerbated By: + exertion Context: + trauma/injury (fall) Associated symptoms: + pain with inspiration; no fever, no cough, no wheezing, no sputum production, no lower extremity pain, no paresthesias, no hemoptysis, no syncope, no abdominal pain, no chest congestion or no dizziness HPI Narrative: Patient is currently being treated for breast cancer by Dr. Miguel A Macario onco logy. Home Medications Medication Instructions Recorded Confirmed Type metoprolol tartrate 50 mg tablet 50 mg PO QAM 07/04/19 04/29/22 History ascorbic acid (vitamin C) 500 mg 500 mg PO QAM 08/06/20 04/29/22 History tablet aspirin 81 mg tablet,delayed 81 mg PO QAM 08/06/20 04/29/22 History release isosorbide mononitrate 30 mg 30 mg PO QAM 08/07/20 04/29/22 History tablet,extended release 24 hr capecitabine 500 mg tablet 1,500 tab PO BID 04/29/22 04/29/22 History cholecalciferol (vitamin D3) 25 0 mcg PO QAM 04/29/22 04/29/22 History mcg (1,000 unit) tablet (Vitamin D3) metformin 500 mg tablet 500 tab PO BID 04/29/22 04/29/22 History rosuvastatin 20 mg tablet 20 tab PO QAM 04/29/22 04/29/22 History Allergies Allergy/AdvReac Type Severity Reaction Status Date / Time No Known Allergies Verified 08/27/20 14:26 Past Med/Surg History Medical History (Updated 04/29/22 @ 16:47 by William Lion) Breast cancer, left JUN 2019 > RADIATION > RESOLVED Chronic ischemic heart disease FOLLOWS DR. CASAREZ Dyslipidemia Esophageal reflux H/O pneumothorax spontaneous > YRS AGO PER PATIENT History of ASCVD (atherosclerotic cardiovascular disease) STEMI 2009 Hypertension Mixed incontinence Varicose vein of leg Surgical History History of cardiac cath 1 STENT 2009 History of colonoscopy History of heart artery stent 1 STENT 2009 > [facility] History of tooth extraction S/P angioplasty 2009 S/P left breast biopsy 06-08-2019 Family History Mother , age 72 Heart disease Arthritis Father , age 72 Alzheimer disease Sister , age 70 Coronary heart disease Brother Stroke Brother , age 80 Heart disease Daughter Breast cancer had radiation therapy Daughter No problems noted. Son No problems noted. 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 Feels Safe at Home: Yes Childhood Exposure to Second-Hand Smoke: No Assistive Devices: Cane and Glasses Review of Systems A total of 10 systems reviewed and were otherwise negative Physical Exam Vital Signs: Vital Signs - 24 hr 04/29/22 13:17 04/29/22 13:24 04/29/22 13:43 Temperature 36.9 C Temperature Source Oral Pulse Rate 95 H 87 Pulse Rate [Apical ] Respiratory Rate 20 20 Respiratory Effort / Characteristics Short of Breath Spontaneous Respiratory Depth Normal Respiratory Patter n Blood Pressure 173/98 H Blood Pressure [Ri ght Arm] Blood Pressure Silke n 123 Blood Pressure Silke n [Right Arm] Blood Pressure Pos ition Lying Blood Pressure Pos ition [Right Arm] Pulse Oximetry 94 96 Oxygen Delivery Me thod Room Air Room Air Room Air Sepsis Recent Feve r Within 48 Hours No Sepsis New/Unexpla ined Change in Men bernarda Status No Sepsis Action Take n by Nursing No Action Required 04/29/22 14:09 04/29/22 15:53 Temperature Temperature Source Pulse Rate Pulse Rate [Apical ] 85 85 Respiratory Rate 20 20 Respiratory Effort / Characteristics Spontaneous Non-Labored Sponta neous Respiratory Depth Normal Respiratory Patter n Regular Blood Pressure Blood Pressure [Ri ght Arm] 146/83 H 144/73 H Blood Pressure Silke n Blood Pressure Silke n [Right Arm] 104 96 Blood Pressure Pos ition Blood Pressure Pos ition [Right Arm] Lying Lying Pulse Oximetry 96 96 Oxygen Delivery Me thod Room Air Room Air Sepsis Recent Feve r Within 48 Hours Sepsis New/Unexpla ined Change in Men bernarda Status Sepsis Action Take n by Nursing Physical Exam: Physical Exam GENERAL: She is oriented to person, place, and time. She appears well-developed and well-nourished. She does not appear distressed. HENT: Exam performed. -Head: Normocephalic and atraumatic. -Right Ear: External ear normal. No mastoid tenderness. -Left Ear: External ear normal. No mastoid tenderness. -Mouth/Throat: The oropharynx is clear and moist. No trismus in the jaw. No dental abscesses or uvula swelling. No oropharyngeal exudate or tonsillar abscesses. EYES: Conjunctivae and EOM are normal. Pupils are equal, round, and reactive to light. Right eye exhibits no discharge. Left eye exhibits no discharge. No scleral icterus. NECK: Normal range of motion. Neck supple. No JVD present. No spinous process tenderness present. No carotid bruit present. No rigidity. No tracheal deviation and normal range of motion present. No Brudzinski's sign and no Kernig's sign noted. CV: Normal rate, regular rhythm, normal heart sounds and intact distal pulses. There is no peripheral edema. Palpable radial pulses bue. PULM/CHEST: Diminished right-sided breath sounds. ABD: The abdomen is soft. Bowel sounds are normal. She has no distension. No mass is present. There is no tenderness. There is no rebound, no guarding, no Valdez's sign and no tenderness at McBurney's point. Rovsig negative MUSC/SKEL: Normal range of motion. There is no peripheral edema, tenderness or deformity. LYMPH: No cervical adenopathy. NEURO: She is alert and oriented to person, place, and time. She has normal strength. No cranial nerve deficit or sensory deficit. Coordination and gait normal. GCS eye subscore is 4. GCS verbal subscore is 5. GCS motor subscore is 6. Cerebellar tests wnl. SKIN: Skin is warm and dry. She is not diaphoretic. PSYCH: She has a normal mood and affect. Behavior is normal. Judgment and thought content normal. Course Course 1318: The patient was evaluated in room A2. A complete history and physical exam was performed Cardiac monitoring: An order was placed for continuous cardiac monitoring. The monitor shows a rate of 8 with sinus rhythm 1535: Vital signs stable.Labs within normal limits with exception of elevated D- dimer and mildly elevated high-sensitivity troponin of 24.1. CTA of the chest shows no PE but does show Large right-sided pleural effusion as well as multiple nodule bilateral pleural he consistent for spread of metastatic breast cancer. CT of the chest stated that the effusion should be considered malignant. I did discuss the findings with the patient and her at bedside. [facility] Administered Medications Discontinued Medications Ioversol (Optiray 320 125ml) 120 ml IV ONCE ONE Stop: 04/29/22 15:01 Last Admin: 04/29/22 14:52 Dose: 120 ml Documented By: ARIANA Medical Decision Making Laboratory Data Result diagrams: 04/29/22 13:44 04/29/22 13:44 Lab Results 04/29/22 04/29/22 04/29/22 Range/Units 13:44 13:44 13:44 WBC 6.33 (4.8-10.8) K/ul RBC 3.42 L (3.93-5.22) M/uL Hgb 9.9 L (12.0-16.0) g/dl Hct 30.4 L (34.1-44.9) % MCV 88.9 (80.0-100.0) fL MCH 28.9 (25.0-34.0) pg MCHC 32.6 (32.0-36.0) g/dL RDW Std Deviation 46.7 H (36.4-46.3) fL RDW Coeff of Allen 14.4 (11.5-14.5) % Plt Count 185 (130-400) K/uL MPV 10.0 (9.4-12.3) fL Immature Gran % (Auto) 0.3 % Neut % (Auto) 75.1 % Lymph % (Auto) 12.6 % [place] % (Auto) 10.9 % Eos % (Auto) 0.3 % Baso % (Auto) 0.8 % Neut # (Auto) 4.75 (1.4-6.5) K/uL Lymph # (Auto) 0.80 L (1.2-3.4) K/uL [place] # (Auto) 0.69 (0.24-0.82) K/uL Eos # (Auto) 0.02 (0-0.50) K/uL Baso # (Auto) 0.05 (0-0.2) K/uL Immature Gran # (Auto) 0.02 (0.00-0.02) K/uL PT 11.4 (9.0-12.0) Seconds INR 1.1 (0.9-1.1) APTT 23.9 (21.0-31.0) Seconds PTT Ratio 0.9 D-Dimer 8150 H* (0-500) ug/L FEU Sodium (136-145) mmol/L Potassium (3.5-5.1) mmol/L Chloride (98-107) mmol/L Carbon Dioxide (21-32) mmol/L Anion Gap (3-11) BUN (6-23) mg/dl Creatinine (0.6-1.2) mg/dl Est Cr Clr Drug Dosing ml/min Est GFR ( Amer) ml/min Est GFR (Non-Af Amer) ml/min BUN/Creatinine Ratio (10-20) Glucose (70-99(Fasting)) mg/dl Calcium (8.5-10.1) mg/dl Troponin I High Sens (0-14) pg/ml B-Natriuretic Peptide 76 (0-100) pg/ml Lipase (11-82) U/L 04/29/22 Range/Units 13:44 WBC (4.8-10.8) K/ul RBC (3.93-5.22) M/uL Hgb (12.0-16.0) g/dl Hct (34.1-44.9) % MCV (80.0-100.0) fL MCH (25.0-34.0) pg MCHC (32.0-36.0) g/dL RDW Std Deviation (36.4-46.3) fL RDW Coeff of Allen (11.5-14.5) % Plt Count (130-400) K/uL MPV (9.4-12.3) fL Immature Gran % (Auto) % Neut % (Auto) % Lymph % (Auto) % [place] % (Auto) % Eos % (Auto) % Baso % (Auto) % Neut # (Auto) (1.4-6.5) K/uL Lymph # (Auto) (1.2-3.4) K/uL [place] # (Auto) (0.24-0.82) K/uL Eos # (Auto) (0-0.50) K/uL Baso # (Auto) (0-0.2) K/uL Immature Gran # (Auto) (0.00-0.02) K/uL PT (9.0-12.0) Seconds INR (0.9-1.1) APTT (21.0-31.0) Seconds PTT Ratio D-Dimer (0-500) ug/L FEU Sodium 138 (136-145) mmol/L Potassium 3.8 (3.5-5.1) mmol/L Chloride 101 (98-107) mmol/L Carbon Dioxide 26 (21-32) mmol/L Anion Gap 11 (3-11) BUN 22 (6-23) mg/dl Creatinine 1.20 (0.6-1.2) mg/dl Est Cr Clr Drug Dosing 33.7 ml/min Est GFR ( Amer) 48.7 ml/min Est GFR (Non-Af Amer) 42.1 ml/min BUN/Creatinine Ratio 18.3 (10-20) Glucose 206 H (70-99(Fasting)) mg/dl Calcium 10.1 (8.5-10.1) mg/dl Troponin I High Sens 24.1 H (0-14) pg/ml B-Natriuretic Peptide (0-100) pg/ml Lipase 26 (11-82) U/L Imaging Data Radiologist's Impression: Head CT 04/29/22 13:24 CT head/brain wo con CLINICAL HISTORY: fall Technique: Contiguous axial CT images of the head were acquired from the base of the skull to the vertex without intravenous contrast administration. Images were viewed in brain, subdural and bone windows. Automated dose lowering techniques and/or adjustment according to patient size were utilized for this exam. Comparison: None available at the time of this dictation. Findings: Areas of decreased attenuation are present in the periventricular and subcortical white matter bilaterally consistent with small vessel ischemic disease. Generalized cerebral atrophy with commensurate enlargement of the ventricles, sulci, and cisterns is also present. There is no acute intracranial hemorrhage or evidence of acute territorial infarction. No shift of the midline structures, mass effect, or extra-axial abnormalities are shown. Atherosclerotic calcifications are present in the intracranial segments of the internal carotid arteries. Imaged portions of the paranasal sinuses and mastoid air cells are clear. The orbits appear normal. There are no acute fractures of the calvaria or scalp swelling. Impression: No acute intracranial hemorrhage, no evidence of acute territorial infarction or other acute intracranial disease process. ACT 112: Negative or not required by law. Electronically signed by: Gianni Ferrera M.D. 04/29/2022 2:32 PM Chest X-Ray 04/29/22 13:25 XR chest 1V portable HISTORY: Atypical Chest Pain COMPARISON: Chest 10/04/2010. FINDINGS: No pneumothorax. Moderate right pleural effusion with right basilar densities. The left lung appears clear. The heart is normal in size. No left- sided pleural effusion. IMPRESSION: 1. Moderate right pleural effusion. 2. Right basilar densities favor atelectasis from the pleural effusion. ACT 112: Negative or not required by law. Electronically signed by: Jaxson Carrillo M.D. 04/29/2022 2:16 PM Chest CTA 04/29/22 14:40 CT angio chest PE protocol CLINICAL HISTORY: ro pe TECHNIQUE: Multidetector row helical CT of the chest was performed with angiographic protocol. Coronal and sagittal reformations were obtained. Coronal and sagittal MIPS were obtained from the axial data set and were submitted for review. Automated dose lowering techniques and/or adjustment according to patient size were utilized for this exam. CT DOSE: 297.59 mGy.cm Comparison: Comparison is made to CT radiation therapy 07/05/[address] abdomen pelvis 08/08/2020 FINDINGS: Lungs and pleura: There is a large right pleural effusion with associated atelectasis. Numerous pulmonary nodules are seen. These include a 13 mm pleural-based nodule in the right upper lobe (image 216), a 4 mm pleural-based nodule in the left lower lobe (image 94), and an 11 mm nodule in the left lung base (image 67). 10 mm broad based densities in the left posterior lung, unchanged from prior. Heart and pericardium: Heart size is normal. No pericardial effusion. Vessels: No evidence of pulmonary embolism. Incidental note is made of common origin of the left internal carotid artery in the right innominate artery. Mediastinum and kathleen: Unremarkable. Chest wall and lower neck: A soft tissue nodular focus is seen in the left chest wall. Postsurgical changes are noted. Abdomen: Unremarkable. Bones: Degenerative changes in the thoracic spine. IMPRESSION: 1. Multiple nodules, predominantly pleural-based, are seen bilaterally. Findings are concerning for recurrent disease in this patient with history of metastatic breast cancer. 2. Interval development of a large right pleural effusion, malignant effusion should be considered. 3. No evidence of pulmonary embolism. ACT 112: Negative or not required by law. Electronically signed by: Gianni Ferrera M.D. 04/29/2022 3:28 PM ECG Data Interpretation: Sinus rhythm with rate of 97. SC 156 QRS [address] elevation or ST depression. PVCs present. MDM Narrative Vital signs stable.Labs within normal limits with exception of elevated D-dimer and mildly elevated high-sensitivity troponin of 24.1. CTA of the chest shows no PE but does show Large right-sided pleural effusion as well as multiple nodule bilateral pleural he consistent for spread of metastatic breast cancer. CT of the chest stated that the effusion should be considered malignant. I did discuss the findings with the patient and her at bedside. We will plan on admitting the patient to the [facility] hospitalist team. Impression & Plan Pleural effusion, Breast cancer metastasized to bone, Dyspnea Discharge Plan Visit Data Chief Complaint: Shortness of Breath/Dyspnea Stated Complaint: SOB ED Provider: William Lion Discharge Problem: Pleural effusion, Breast cancer metastasized to bone, Dyspnea Patient Disposition: Being Evaluated by Hospitalist Forms Stand Alone Forms: My [facility] Prescriptions Prescriptions: No Action metoprolol tartrate 50 mg tablet 50 mg PO QAM aspirin 81 mg Tablet,Delayed Release (Dr/Ec) 81 mg PO QAM ascorbic acid (vitamin C) 500 mg Tablet 500 mg PO QAM isosorbide mononitrate 30 mg tablet extended release 24 hr 30 mg PO QAM metformin 500 mg tablet 500 tab PO BID capecitabine 500 mg tablet 1,500 tab PO BID rosuvastatin 20 mg tablet 20 tab PO QAM cholecalciferol (vitamin D3) [Vitamin D3] 25 mcg (1,000 unit) Tablet 0 mcg PO QAM Referrals Referrals: John Moody MD [Primary Care Provider] -
--- NOTE | 2022-04-29 17:51 | History & Physical Report ---
Date of Service April 29, 2022 Assessment & Plan (1) Pleural effusion: (2) Metastatic breast cancer: (3) T2DM (type 2 diabetes mellitus): (4) Chronic ischemic heart disease: (5) Hypertension: (6) CKD (chronic kidney disease), stage III: Plan This is an 81-year-old female who has significant past medical history of chronic ischemic heart disease with history of angioplasty and stent, history of left breast CA with mets to lung and bone previously in remission, HTN, HLD, CKD stage III who presents to ED secondary to difficulty taking deep breath x 3-4 days. Large right pleural effusion Metastatic breast cancer Admit to PCU Currently not requiring oxygen Consult pulmonology to evaluate for possible thoracentesis Recent PET scan revealed increase in activity, size and number of pleural and parenchymal metastatic disease of right lung Pleural effusion likely malignant Will need to send for culture and cytology Oxygen supplementation as needed 1 mg IV morphine for pain or shortness of breath Encourage incentive spirometry Patient follows with Dr. Grady Currently taking Xeloda, day / will continue Elevated troponin pt w/o CP or ekg change will cycle for completeness Chronic ischemic CAD hx of Cardiac Stent HTN HLD Continue ASA, Imdur, metoprolol and rosuvastatin stable T2DM Last A1c 6.7 in 2020 A1c in a.m. Hold metformin Lantus/NovoLog per protocol CKD stage III Baseline creatinine 1.0 Monitor renal function avoid nephrotoxic agents DVT ppx: SCDS for now, consider chemical ppx after eval by pulm and possible thoracentesis Dispo: PCU FULL CODE PCP: [place] Pt was seen and examined in collaboration with Dr. Berumen, please see addendum History of Present Illness Chief Complaint: Difficulty taking deep breath x 3 days. Primary Care Provider: John Moody MD This is an 81-year-old female who has significant past medical history of chronic ischemic heart disease with history of angioplasty and stent, history of left breast CA with mets to lung and bone previously in remission, HTN, HLD, CKD stage III who presents to ED secondary to difficulty taking deep breath x 3-4 days. Approximately 4 days ago patient was walking across a lawn with a chair and her one-handed cane and the other. She lost her balance and fell on her back. She denies losing consciousness or hitting her head. Immediately after event she did have back pain, felt nauseated and did vomit x1. She was able to get to her chair and symptoms improved. The next day she began having difficulty taking a big deep breath. She thought this may have been associated with her fall and that maybe she, "injured her lungs." Over the last 3 to 4 days she became more short of breath at rest and with exertion and it became more difficult to take a deep breath. She denies any pain with inspiration. She does have a chronic dry cough. She denies any gillian chest pain, hemoptysis, fever, chills, sweats, lightheadedness, dizziness, syncope, nausea, vomiting, abdominal pain, change in bowel or urinary habits. Of significance patient does have history of left breast cancer with mets to lung and bone which was previously in remission. She follows Dr. Grady and has been taking oral chemotherapy. She recently had a PET scan which showed increased in size, number and activity of pleural and parenchymal metastatic disease on right side with associated pleural effusion. Also noted was increase in hilar and lower mediastinal adenopathy. Because of this her oral chemotherapy was switched to Xeloda which she just started 4 days ago. In ED patient was hemodynamically stable and was not requiring oxygen. Allergies Allergy/AdvReac Type Severity Reaction Status Date / Time No Known Allergies Verified 08/27/20 14:26 Home Medications Medication Instructions Recorded Confirmed Type ascorbic acid (vitamin C) 500 mg 500 mg PO QAM 08/06/20 04/29/22 History tablet aspirin 81 mg tablet,delayed 81 mg PO QAM 08/06/20 04/29/22 History release isosorbide mononitrate 30 mg 30 mg PO QAM 08/07/20 04/29/22 History tablet,extended release 24 hr capecitabine 500 mg tablet 1,500 tab PO BID 04/29/22 04/29/22 History cholecalciferol (vitamin D3) 25 25 mcg PO QAM 04/29/22 04/29/22 History mcg (1,000 unit) tablet (Vitamin D3) metformin 500 mg tablet 500 tab PO BID 04/29/22 04/29/22 History metoprolol succinate 50 mg 50 tab PO DAILY 04/29/22 04/29/22 History tablet,extended release 24 hr rosuvastatin 20 mg tablet 20 tab PO QAM 04/29/22 04/29/22 History Past Med/Surg History Medical History (Updated 04/29/22 @ 17:44 by Michelle Mcgarry PA-C) Breast cancer, left JUN 2019 > RADIATION > RESOLVED Chronic ischemic heart disease FOLLOWS DR. CASAREZ Dyslipidemia Esophageal reflux H/O pneumothorax spontaneous > YRS AGO PER PATIENT History of ASCVD (atherosclerotic cardiovascular disease) STEMI 2009 Hypertension Mixed incontinence Varicose vein of leg Surgical History History of cardiac cath 1 STENT 2009 History of colonoscopy History of heart artery stent 1 STENT 2009 > [facility] History of tooth extraction S/P angioplasty 2009 S/P left breast biopsy 06-08-2019 Family History Mother , age 72 Heart disease Arthritis Father , age 72 Alzheimer disease Sister , age 70 Coronary heart disease Brother Stroke Brother , age 80 Heart disease Daughter Breast cancer had radiation therapy Daughter No problems noted. Son No problems noted. 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 Feels Safe at Home: Yes Childhood Exposure to Second-Hand Smoke: No Assistive Devices: Cane and Glasses Review of Systems Review of Systems: All systems reviewed & are unremarkable except as noted in HPI & below Physical Exam Physical Exam: Constitutional: WD/WN, vitals as above, NAD, sitting up in bed, pleasant, conversing easily Head: Normocephalic, Atraumatic Eyes: PERRL, conjunctivae normal, anicteric sclerae ENMT: external ear and nose normal, oropharynx normal Neck: trachea midline, no thyromegaly normal visual inspection Respiratory: normal respiratory effort, lungs clear to auscultation, significant decrease in aeration and breath sounds to right middle lung and lung base. no wheeze, rales, rhonchi. Normal insp/exp effort, no accessory muscle use Cardiovascular: RRR, no murmur, no edema Vessels: no JVD or carotid bruit Chest: normal inspection of chest Abdomen: normal bowel sounds, soft, nontender, no hepatosplenomegaly Musculoskeletal: no cyanosis or clubbing, extremities motor strength 5/5 Skin: no rashes, warm and dry normal turgor Neurologic: PERRL, EOMI, accommodation nl, no face palsy, no dysarthria CN's II-XI intact bilaterally and moves all extremities Psychiatric: A+Ox3, euthymic affect Lymphatic: no cervical or axillary lymphadenopathy : deferred Results & Data Results & Data ([facility]) Vital Signs (Past 12 Hours) Vital Signs Temp Pulse Pulse Resp BP BP Pulse Ox 04/29/22 17:28 80 18 152/89 H 95 04/29/22 15:53 85 20 144/73 H 96 04/29/22 14:09 85 20 146/83 H 96 04/29/22 13:43 87 20 96 04/29/22 13:24 04/29/22 13:17 36.9 C 95 H 20 173/98 H 94 O2 Del Method 04/29/22 17:28 Room Air 04/29/22 15:53 Room Air 04/29/22 14:09 Room Air 04/29/22 13:43 Room Air 04/29/22 13:24 Room Air 04/29/22 13:17 Room Air Diagnostic Findings Head CT 04/29/22 13:24 CT head/brain wo con CLINICAL HISTORY: fall Technique: Contiguous axial CT images of the head were acquired from the base of the skull to the vertex without intravenous contrast administration. Images were viewed in brain, subdural and bone windows. Automated dose lowering techniques and/or adjustment according to patient size were utilized for this exam. Comparison: None available at the time of this dictation. Findings: Areas of decreased attenuation are present in the periventricular and subcortical white matter bilaterally consistent with small vessel ischemic disease. Generalized cerebral atrophy with commensurate enlargement of the ventricles, sulci, and cisterns is also present. There is no acute intracranial hemorrhage or evidence of acute territorial infarction. No shift of the midline structures, mass effect, or extra-axial abnormalities are shown. Atherosclerotic calcifications are present in the intracranial segments of the internal carotid arteries. Imaged portions of the paranasal sinuses and mastoid air cells are clear. The orbits appear normal. There are no acute fractures of the calvaria or scalp swelling. Impression: No acute intracranial hemorrhage, no evidence of acute territorial infarction or other acute intracranial disease process. ACT 112: Negative or not required by law. Electronically signed by: Gianni Ferrera M.D. 04/29/2022 2:32 PM Chest X-Ray 04/29/22 13:25 XR chest 1V portable HISTORY: Atypical Chest Pain COMPARISON: Chest 10/04/2010. FINDINGS: No pneumothorax. Moderate right pleural effusion with right basilar densities. The left lung appears clear. The heart is normal in size. No left- sided pleural effusion. IMPRESSION: 1. Moderate right pleural effusion. 2. Right basilar densities favor atelectasis from the pleural effusion. ACT 112: Negative or not required by law. Electronically signed by: Jaxson Carrillo M.D. 04/29/2022 2:16 PM Chest CTA 04/29/22 14:40 CT angio chest PE protocol CLINICAL HISTORY: ro pe TECHNIQUE: Multidetector row helical CT of the chest was performed with angiographic protocol. Coronal and sagittal reformations were obtained. Coronal and sagittal MIPS were obtained from the axial data set and were submitted for review. Automated dose lowering techniques and/or adjustment according to patient size were utilized for this exam. CT DOSE: 297.59 mGy.cm Comparison: Comparison is made to CT radiation therapy 07/05/[address] abdomen pelvis 08/08/2020 FINDINGS: Lungs and pleura: There is a large right pleural effusion with associated atelectasis. Numerous pulmonary nodules are seen. These include a 13 mm pleural- based nodule in the right upper lobe (image 216), a 4 mm pleural-based nodule in the left lower lobe (image 94), and an 11 mm nodule in the left lung base (image 67). 10 mm broad based densities in the left posterior lung, unchanged from prior. Heart and pericardium: Heart size is normal. No pericardial effusion. Vessels: No evidence of pulmonary embolism. Incidental note is made of common origin of the left internal carotid artery in the right innominate artery. Mediastinum and kathleen: Unremarkable. Chest wall and lower neck: A soft tissue nodular focus is seen in the left chest wall. Postsurgical changes are noted. Abdomen: Unremarkable. Bones: Degenerative changes in the thoracic spine. IMPRESSION: 1. Multiple nodules, predominantly pleural-based, are seen bilaterally. Findings are concerning for recurrent disease in this patient with history of metastatic breast cancer. 2. Interval development of a large right pleural effusion, malignant effusion should be considered. 3. No evidence of pulmonary embolism. ACT 112: Negative or not required by law. Electronically signed by: Gianni Ferrera M.D. 04/29/2022 3:28 PM Medications Administered Medication List Discontinued Medications Ioversol (Optiray 320 125ml) 120 ml IV ONCE ONE Stop: 04/29/22 15:01 Last Admin: 04/29/22 14:52 Dose: 120 ml Documented By: ARIANA ECG Rate (beats per minute): 97 Rhythm: normal sinus Findings: + PVC COVID-19 Results Results COVID-19 Adm Lab Results: RBC 3.42 M/uL (3.93-5.22) L 04/29/22 WBC 6.33 K/ul (4.8-10.8) 04/29/22 Hgb 9.9 g/dl (12.0-16.0) L 04/29/22 Hct 30.4 % (34.1-44.9) L 04/29/22 Plt Count 185 K/uL (130-400) 04/29/22 Neutrophils (%) (Auto) 75.1 % 04/29/22 Lymphocytes (%) (Auto) 12.6 % 04/29/22 Monocytes # (Auto) 0.69 K/uL (0.24-0.82) 04/29/22 Eosinophils # (Auto) 0.02 K/uL (0-0.50) 04/29/22 Immature Granulocyte % (Auto) 0.3 % 04/29/22 Neutrophils # (Auto) 4.75 K/uL (1.4-6.5) 04/29/22 Lymphocytes # (Auto) 0.80 K/uL (1.2-3.4) L 04/29/22 Monocytes # (Auto) 0.69 K/uL (0.24-0.82) 04/29/22 Eosinophils # (Auto) 0.02 K/uL (0-0.50) 04/29/22 Basophils # (Auto) 0.05 K/uL (0-0.2) 04/29/22 Immature Granulocyte # (Auto) 0.02 K/uL (0.00-0.02) 2 Na 138 mmol/L (136-145) 04/29/22 K 3.8 mmol/L (3.5-5.1) 04/29/22 Cl 101 mmol/L (98-107) 04/29/22 CO2 26 mmol/L (21-32) 04/29/22 Anion Gap 11 (3-11) 04/29/22 BUN 22 mg/dl (6-23) 04/29/22 Creatinine 1.20 mg/dl (0.6-1.2) 04/29/22 BUN/Creatinine Ratio 18.3 (10-20) 04/29/22 Glucose Level 206 mg/dl (70-99(Fasting)) H 04/29/22 Ca 10.1 mg/dl (8.5-10.1) 04/29/22 D-Dimer 8150 ug/L FEU (0-500) H* 04/29/22 PTT 23.9 Seconds (21.0-31.0) 04/29/22 INR 1.1 (0.9-1.1) 04/29/22 Chest X-Ray 04/29/22 Code Status & VTE Plan Code Status Full code VTE Prophylaxis Plan VTE Prophylaxis will be ordered: Yes Supervising Physician Co-Signing Physician Notes Patient was seen and examined independently at bedside. Chart reviewed. Case discussed with Michelle CRUMP agree with the documentation above. In summary, this is a 81 year old female with h/o left breast cancer with mets to lungs and bones prveiously in remission presented to the ED for evaluation of DALAL for 3-4 days. CTA showed no PE but multiple lung nodules bilaterally with interval development of large right pleural effusion suspicious for malignant pleural effusion. Vitals stable, saturating well in room air. AAO, not in distress, on room air, decreased breath sounds in right lung base,heart sounds normal, abd benign, no edema. Agree with pulm evaluation for diagnostic and therapeutic paracentesis. Consider 2 step O2 eval at discharge. Rest as per the note above. (1) T2DM (type 2 diabetes mellitus) Diabetes mellitus complication status: with other specified complication Diabetes mellitus terminal manager insulin use: unspecified terminal manager insulin use status Qualified Code(s): E11.69 - Type 2 diabetes mellitus with other specified complication
[2022-04-29] MEDS ORDERED: DEXTROSE 50% 50 ML SYRINGE IV PRN (21:22)
[2022-04-29] MEDS ORDERED: POLYETHYLENE (MIRALAX) 17 GM PACK PO PRN (21:22)
[2022-04-29] MEDS ORDERED: ALUMINUM/MAGNESIUM SUSP 30 ML UDC PO PRN (21:22)
[2022-04-29] MEDS ORDERED: ACETAMINOPHEN 325 MG TAB PO PRN (21:22)
[2022-04-29] MEDS ORDERED: GLUCOSE 10 TAB/TUBE PO PRN (21:22)
[2022-04-29] MEDS ORDERED: GLUCOSE 40% GEL 15 GM TUBE PO PRN (21:22)
[2022-04-29] MEDS ORDERED: GLUCAGON FOR INJ 1 MG VIAL SQ PRN (21:22)
[2022-04-29] MEDS ORDERED: MoRPHine SULFATE 2 MG/ML CARP IV PRN (21:22)
[2022-04-29] MEDS ORDERED: ONDANSETRON INJ 2 MG/ML 2 ML VIAL IV PRN (21:22)
[2022-04-29] MEDS ORDERED: MAGNESIUM HYDROXIDE SUSP 30 ML UDC PO PRN (21:22)
[2022-04-29] MEDS ORDERED: CARBOHYDRATES FOR HYPOGLYCEMIA PO PRN (21:22)
[2022-04-29] MEDS: INSULIN ASPART PER UNIT SC SCH (22:21)
[2022-04-29] MEDS: LANTUS PER UNIT CHARGE SQ SCH (22:22)
[2022-04-30 07:04] LABS: Basophils # (auto) 0.05 K/uL (0-0.2); Basophils % (auto) 0.8 %; Hematocrit (blood only) 28.4 % (34.1-44.9); Hemoglobin 9.2 g/dl (12.0-16.0); Immature Granulocytes # (auto) 0.02 K/uL (0.00-0.02); Immature Granulocytes % (auto) 0.3 %; Lymphocytes # (auto) 1.01 K/uL (1.2-3.4); Lymphocytes % (auto) 15.8 %; Mean Corpuscular Hemoglobin 28.9 pg (25.0-34.0); Mean Corpuscular Hgb Conc 32.4 g/dL (32.0-36.0); Mean Corpuscular Volume 89.3 fL (80.0-100.0); Mean Platelet Volume 9.6 fL (9.4-12.3); Monocytes # (auto) 0.91 K/uL (0.24-0.82); Monocytes % (auto) 14.2 %; Neutrophils % (auto) 68.9 %; Platelet Count 171 K/uL (130-400); RDW Coefficient of Variation 14.3 % (11.5-14.5); RDW Standard Deviation 46.6 fL (36.4-46.3); Red Blood Count 3.18 M/uL (3.93-5.22); White Blood Count 6.39 K/ul (4.8-10.8)
[2022-04-30 07:29] LABS: Albumin Level 3.7 gm/dl (3.4-5.0); Bilirubin,Total 0.5 mg/dl (0.2-1.0); Calcium 9.4 mg/dl (8.5-10.1); Creatinine Clr Calc Pharmacy 35.5 ml/min; Est GFR (African American) 51.3 ml/min; Est GFR (Non-African American) 44.3 ml/min; Globulin 3.6 gm/dl (2.5-4.0); Magnesium 2.2 mg/dl (1.7-2.4); Potassium 3.6 mmol/L (3.5-5.1); Total Protein 7.3 gm/dl (6.0-8.3)
[2022-04-30 07:38] LABS: Estimated Average Glucose 154 mg/dl
[2022-04-30] MEDS: LANTUS PER UNIT CHARGE SQ SCH ×2 (08:04→21:18)
[2022-04-30] MEDS: INSULIN ASPART PER UNIT SC SCH ×4 (08:04→21:18)
[2022-04-30] MEDS ORDERED: ROSUVASTATIN CALCIUM 20 MG TAB PO SCH (09:00)
[2022-04-30] MEDS ORDERED: METOPROLOL SUCC 50MG EXT REL TAB PO SCH (09:00)
[2022-04-30] MEDS: ASCORBIC ACID 500 MG TAB PO SCH (09:45)
[2022-04-30] MEDS: ISOSORBIDE MONO EXTENDED REL 30 MG TABCR PO SCH (09:46)
[2022-04-30] MEDS: CHOLECALCIFEROL 1,000 UNITS 25 MCG TAB PO SCH (09:46)
[2022-04-30] MEDS: ROSUVASTATIN CALCIUM 20 MG TAB PO SCH (09:46)
[2022-04-30] MEDS: ASPIRIN 81 MG ECTAB PO SCH (09:46)
[2022-04-30] MEDS: METOPROLOL SUCC 50MG EXT REL TAB PO SCH (09:46)
[2022-04-30 10:10] LABS: Total Protein Pleural Fluid 5.7 gm/dl
--- NOTE | 2022-04-30 10:20 | Pulmonary Consultation ---
Date of Consultation April 30, 2022 Assessment & Plan (1) Pleural effusion: (2) Dyspnea: (3) Metastatic breast cancer: Plan Impression: 81-year-old female with history of metastatic breast cancer presents with subacute shortness of breath found to have pleural effusion. Temporally r elated to her fall. Traumatic pleural effusion or hemothorax would be in the differential as well as malignancy and other etiologies. Sampling of the pleural fluid for alleviation of symptoms and characterization is recommended. Recommendations: 1. Right pleural effusion: Discussed with patient at bedside. Recommended ultrasound-guided catheter thoracentesis. Risks and benefits were discussed with the patient. Questions were answered to the best my ability. She expressed understanding and is agreeable to proceed. 2. Additional recommendations and work-up will be based on analysis of the pleural fluid. The patient does not appear in any acute distress currently and may be able to be discharged once the fluid is removed. 3. Work-up of the patient's syncopal episode and trauma is deferred to the patient's primary admitting service. Thank for the opportunity of assisting in the care of this patient. Feel free to contact us with questions or concerns History of Present Illness Attending Physician: Michela Jung MD History of Present Illness By hospitalist to evaluate this patient with pleural effusion. History is obtained from discussion with the patient as well as review the electronic medical record. The patient is an 81-year-old female with a history of breast cancer reportedly in remission who on April 19 was at a [employer] show and suffered a fall/syncopal event. She lost consciousness for a brief period of time and hit her back. Since that time she has had progressive shortness of breath. She is not had any fevers chills or night sweats. She has noted some bruising on her back. Patient was seen in the emergency room. D-dimer was elevated and CT angiogram was performed. Chest x-ray demonstrated a pleural effusion. This was confirmed on CT scan as well as some nodularity. The patient was admitted and pulmonary was consulted. The patient does not report a prior history of thoracentesis. She is followed at the [facility] oncology group. Allergies Allergy/AdvReac Type Severity Reaction Status Date / Time No Known Allergies Verified 08/27/20 14:26 Home Medications Medication Instructions Recorded Confirmed Type ascorbic acid (vitamin C) 500 mg 500 mg PO QAM 08/06/20 04/29/22 History tablet aspirin 81 mg tablet,delayed 81 mg PO QAM 08/06/20 04/29/22 History release isosorbide mononitrate 30 mg 30 mg PO QAM 08/07/20 04/29/22 History tablet,extended release 24 hr capecitabine 500 mg tablet 1,500 tab PO BID 04/29/22 04/29/22 History cholecalciferol (vitamin D3) 25 25 mcg PO QAM 04/29/22 04/29/22 History mcg (1,000 unit) tablet (Vitamin D3) metformin 500 mg tablet 500 tab PO BID 04/29/22 04/29/22 History metoprolol succinate 50 mg 50 tab PO DAILY 04/29/22 04/29/22 History tablet,extended release 24 hr rosuvastatin 20 mg tablet 20 tab PO QAM 04/29/22 04/29/22 History Patient History Medical History (Updated 04/29/22 @ 17:44 by Michelle Mcgarry PA-C) Breast cancer, left JUN 2019 > RADIATION > RESOLVED Chronic ischemic heart disease FOLLOWS DR. CASAREZ Dyslipidemia Esophageal reflux H/O pneumothorax spontaneous > YRS AGO PER PATIENT History of ASCVD (atherosclerotic cardiovascular disease) STEMI 2009 Hypertension Mixed incontinence Varicose vein of leg Surgical History History of cardiac cath 1 STENT 2009 History of colonoscopy History of heart artery stent 1 STENT 2009 > [facility] History of tooth extraction S/P angioplasty 2009 S/P left breast biopsy 06-08-2019 Family History Mother , age 72 Heart disease Arthritis Father , age 72 Alzheimer disease Sister , age 70 Coronary heart disease Brother Stroke Brother , age 80 Heart disease Daughter Breast cancer had radiation therapy Daughter No problems noted. Son No problems noted. 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 No additions or deletions Physical Exam Constitutional: WD/WN, vitals as above Neck: trachea midline, no thyromegaly Respiratory: normal respiratory effort Decreased breath sounds with dulln ess to percussion on the right Cardiovascular: RRR, no murmur, no edema Gastrointestinal (Abdomen): normal bowel sounds, soft, nontender, no hepatosplenomegaly Musculoskeletal: Extremities: extremities normal to inspection Skin: no rashes, warm and dry Neurologic: Nonfocal exam Lymphatic: no cervical lymphadenopathy Results & Data Results & Data ([facility]) Vital Signs (Past 12 Hours) Vital Signs Temp Pulse Pulse Resp BP Pulse Ox O2 Del Method 04/30/22 07:09 36.8 C 72 18 150/72 H 95 Room Air 04/30/22 03:40 36.5 C 74 18 127/73 96 Room Air 04/30/22 01:00 Room Air 04/30/22 01:14 36.4 C L 88 15 122/72 97 Room Air 04/30/22 00:41 94 Room Air 04/30/22 00:00 87 18 154/78 H 94 Room Air 04/29/22 22:45 Room Air Critical Care Results & Data Vital Signs (Past 12 Hours) Vital Signs Temp Pulse Pulse Resp BP Pulse Ox O2 Del Method 04/30/22 07:09 36.8 C 72 18 150/72 H 95 Room Air 04/30/22 03:40 36.5 C 74 18 127/73 96 Room Air 04/30/22 01:00 Room Air 04/30/22 01:14 36.4 C L 88 15 122/72 97 Room Air 04/30/22 00:41 94 Room Air 04/30/22 00:00 87 18 154/78 H 94 Room Air 04/29/22 22:45 Room Air Lab & Micro Results (Past 24 Hours) RBC 3.18 M/uL (3.93-5.22) L 04/30/22 WBC 6.39 K/ul (4.8-10.8) 04/30/22 Hgb 9.2 g/dl (12.0-16.0) L 04/30/22 Hct 28.4 % (34.1-44.9) L 04/30/22 MCV 89.3 fL (80.0-100.0) 04/30/22 MCH 28.9 pg (25.0-34.0) 04/30/22 MCHC 32.4 g/dL (32.0-36.0) 04/30/22 RDW Standard Deviation 46.6 fL (36.4-46.3) H 04/30/22 RDW Coefficient of Variation 14.3 % (11.5-14.5) 04/30/22 Plt Count 171 K/uL (130-400) 04/30/22 MPV 9.6 fL (9.4-12.3) 04/30/22 Neutrophils (%) (Auto) 68.9 % 04/30/22 Lymphocytes (%) (Auto) 15.8 % 04/30/22 Monocytes # (Auto) 0.91 K/uL (0.24-0.82) H 04/30/22 Eosinophils # (Auto) 0.00 K/uL (0-0.50) 04/30/22 Immature Granulocyte % (Auto) 0.3 % 04/30/22 Neutrophils # (Auto) 4.40 K/uL (1.4-6.5) 04/30/22 Lymphocytes # (Auto) 1.01 K/uL (1.2-3.4) L 04/30/22 Monocytes # (Auto) 0.91 K/uL (0.24-0.82) H 04/30/22 Eosinophils # (Auto) 0.00 K/uL (0-0.50) 04/30/22 Basophils # (Auto) 0.05 K/uL (0-0.2) 04/30/22 Immature Granulocyte # (Auto) 0.02 K/uL (0.00-0.02) 2 Na 138 mmol/L (136-145) 04/30/22 K 3.6 mmol/L (3.5-5.1) 04/30/22 Cl 102 mmol/L (98-107) 04/30/22 CO2 27 mmol/L (21-32) 04/30/22 Anion Gap 9 (3-11) 04/30/22 BUN 23 mg/dl (6-23) 04/30/22 Creatinine 1.15 mg/dl (0.6-1.2) 04/30/22 Estimated GFR ( Amer) 51.3 ml/min 04/30/22 Estimated GFR (Non-Af Amer) 44.3 ml/min 04/30/22 BUN/Creatinine Ratio 20.0 (10-20) 04/30/22 Glu 126 mg/dl (70-99(Fasting)) H 04/30/22 Ca 9.4 mg/dl (8.5-10.1) 04/30/22 Total Bilirubin 0.5 mg/dl (0.2-1.0) 04/30/22 AST 23 U/L (13-39) 04/30/22 ALT 28 U/L (7-52) 04/30/22 Alkaline Phosphatase 64 U/L (34-104) 04/30/22 TP 7.3 gm/dl (6.0-8.3) 04/30/22 Albumin 3.7 gm/dl (3.4-5.0) 04/30/22 Globulin 3.6 gm/dl (2.5-4.0) 04/30/22 Albumin/Globulin Ratio 1.0 (0.9-2) 04/30/22 Mg 2.2 mg/dl (1.7-2.4) 04/30/22 06:47 Calcium Level 9.4 mg/dl (8.5-10.1) 04/30/22 06:47 Prothromb Time International Ratio 1.1 (0.9-1.1) 04/29/22 13:4 4 Diagnostic Findings (Past 24 Hours) Head CT 04/29/22 13:24 CT head/brain wo con CLINICAL HISTORY: fall Technique: Contiguous axial CT images of the head were acquired from the base of the skull to the vertex without intravenous contrast administration. Images were viewed in brain, subdural and bone windows. Automated dose lowering techniques and/or adjustment according to patient size were utilized for this exam. Comparison: None available at the time of this dictation. Findings: Areas of decreased attenuation are present in the periventricular and subcortical white matter bilaterally consistent with small vessel ischemic disease. Generalized cerebral atrophy with commensurate enlargement of the ventricles, sulci, and cisterns is also present. There is no acute intracranial hemorrhage or evidence of acute territorial infarction. No shift of the midline structures, mass effect, or extra-axial abnormalities are shown. Atherosclerotic calcifications are present in the intracranial segments of the internal carotid arteries. Imaged portions of the paranasal sinuses and mastoid air cells are clear. The orbits appear normal. There are no acute fractures of the calvaria or scalp swelling. Impression: No acute intracranial hemorrhage, no evidence of acute territorial infarction or other acute intracranial disease process. ACT 112: Negative or not required by law. Electronically signed by: Gianni Ferrera M.D. 04/29/2022 2:32 PM Chest X-Ray 04/29/22 13:25 XR chest 1V portable HISTORY: Atypical Chest Pain COMPARISON: Chest 10/04/2010. FINDINGS: No pneumothorax. Moderate right pleural effusion with right basilar densities. The left lung appears clear. The heart is normal in size. No left- sided pleural effusion. IMPRESSION: 1. Moderate right pleural effusion. 2. Right basilar densities favor atelectasis from the pleural effusion. ACT 112: Negative or not required by law. Electronically signed by: Jaxson Carrillo M.D. 04/29/2022 2:16 PM Chest CTA 04/29/22 14:40 CT angio chest PE protocol CLINICAL HISTORY: ro pe TECHNIQUE: Multidetector row helical CT of the chest was performed with angiographic protocol. Coronal and sagittal reformations were obtained. Coronal and sagittal MIPS were obtained from the axial data set and were submitted for review. Automated dose lowering techniques and/or adjustment according to patient size were utilized for this exam. CT DOSE: 297.59 mGy.cm Comparison: Comparison is made to CT radiation therapy 07/05/[address] abdomen pelvis 08/08/2020 FINDINGS: Lungs and pleura: There is a large right pleural effusion with associated atelectasis. Numerous pulmonary nodules are seen. These include a 13 mm pleural- based nodule in the right upper lobe (image 216), a 4 mm pleural-based nodule in the left lower lobe (image 94), and an 11 mm nodule in the left lung base (image 67). 10 mm broad based densities in the left posterior lung, unchanged from prior. Heart and pericardium: Heart size is normal. No pericardial effusion. Vessels: No evidence of pulmonary embolism. Incidental note is made of common origin of the left internal carotid artery in the right innominate artery. Mediastinum and kathleen: Unremarkable. Chest wall and lower neck: A soft tissue nodular focus is seen in the left chest wall. Postsurgical changes are noted. Abdomen: Unremarkable. Bones: Degenerative changes in the thoracic spine. IMPRESSION: 1. Multiple nodules, predominantly pleural-based, are seen bilaterally. Findings are concerning for recurrent disease in this patient with history of metastatic breast cancer. 2. Interval development of a large right pleural effusion, malignant effusion should be considered. 3. No evidence of pulmonary embolism. ACT 112: Negative or not required by law. Electronically signed by: Gianni Ferrera M.D. 04/29/2022 3:28 PM I & O Totals 24 Hours 04/29/22 04/30/22 05/01/22 06:59 06:59 06:59 Intake Total 100 / 100 Balance 100 / 100 Cumulative 04/29/22 13:06 thru 04/30/22 06:09 Intake Total 100 Balance 100 RT Ventilator Mngmt (Last Documented) Ventilator Ordered Settings Respiratory Rate 18 04/30/22 07:09 Ventilator - PT Measurements Respiratory Rate 18 PG Care Time/CCT Total # of Minutes Spent Total Time Spent with Patient: Total time spent is greater than 50% in coordination of care (as documented) at patient's floor/unit and/or counseling patient: Coding Level of Care Code 00532 Initial Inpt Care Lvl 3 Diagnoses Pleural effusion J90 Dyspnea R06.00 Metastatic breast cancer C50.919
--- NOTE | 2022-04-30 10:22 | Procedure Note ---
Procedure Note Date of Service April 30, 2022 Note Procedure: Diagnostic therapeutic ultrasound-guided catheter thoracentesis right Plant Inspector: Dr. Daniel Hilliard Indication: Pleural effusion Consent: Signed by patient and verified with timeout prior to procedure Anesthesia: 8 mL's 1% lidocaine without epinephrine local. Procedure: Consent was verified and timeout performed. Appropriate imaging studies were reviewed prior to the procedure. Patient was placed in a seated position and limited thoracic ultrasound was performed of the bilateral chest. No significant effusion was identified on the left. The right side demonstrated a moderate sized pleural effusion with compressive atelectasis.. Site appropriate for thoracentesis was selected. The skin was prepped and draped in normal sterile fashion. Lidocaine was used for local analgesia. Fluid was aspirated via the finder needle. A small skin huber was made with the scalpel and the catheter over the needle apparatus was advanced over the rib into the pleural space. Using the syringe one-way valve system, a total of 1300 mL's of bloody fluid was removed. Procedure was terminated due to patient coughing and experiencing some chest pain. The catheter was removed and observed to be intact. A sterile dressing was applied. Post procedure chest x-ray was ordered. Postprocedural ultrasound was performed which revealed a small amount of residual pleural fluid with lung sliding noted Fluid was sent for cell count differential, cytology, gram stain and culture, LDH, total protein, and pH. The patient tolerated the procedure well without obvious complication Coding CPT Codes Pulmonary/Thoracic - Pulmonary and Thoracic: 83681 Thoracentesis w imaging ([id number]) [facility] [place] ([place]) Pulmonary/Thoracic Procedure 1: Pulmonary and Thoracic: 97088 Thoracentesis w imaging
--- NOTE | 2022-04-30 10:22 | XRay Report ---
XR chest 1V portable CLINICAL HISTORY: S/P Thoracentesis TECHNIQUE: Single frontal radiograph of the chest was obtained. Comparison: Comparison is made to chest radiograph 04/29/2022 FINDINGS: No lines and tubes are seen. The cardiomediastinal silhouette is normal. Partially visualized nodular density in the right upper lung, unchanged from prior exam, may represent loculated pleural fluid. I nterval decrease in right pleural effusion which is now small. No pneumothorax is seen. IMPRESSION: 1. Interval decrease in right pleural effusion status post thoracentesis. No evidence of pneumothora x. 2. Nodular density in the right upper lung measuring approximately 41 mm may represent a locule of p leural fluid. Attention on follow-up is recommended. ACT 112: Negative or not required by law. Electronically signed by: Gianni Ferrera M.D. 04/30/2022 10:21 AM
[2022-04-30 11:43] LABS: Appearance Pleural Fluid Cloudy; Color Pleural Fluid Yellow; RBC Pleural Fluid (A) 747000 /uL; WBC Pleural Fluid (A) 1510 /uL
[2022-04-30 11:44] LABS: Lymphocytes, Fluid 46 %; Mono,Macrophage,Mesothelial 47 %; Neutrophils, Fluid 7 %
--- NOTE | 2022-04-30 16:44 | Hospitalist Progress Note ---
Date of Service April 30, 2022 Assessment & Plan (1) Pleural effusion: (2) Metastatic breast cancer: (3) T2DM (type 2 diabetes mellitus): (4) Chronic ischemic heart disease: (5) Hypertension: (6) CKD (chronic kidney disease), stage III: Plan This is an 81-year-old female who has significant past medical history of chronic ischemic heart disease with history of angioplasty and stent, history of left breast CA with mets to lung and bone previously in remission, HTN, HLD, CKD stage III who presents to ED secondary to difficulty taking deep breath x 3-4 days. Large right pleural effusion Metastatic breast cancer Present on admission with SOB CTA chest showed Multiple Interval development of a large right pleural effusion, malignant effusion should be considered. No evidence of pulmonary embolism. Recent PET scan revealed increase in activity, size and number of pleural and parenchymal metastatic disease of right lung Pulmonology on board S/P thoracentesis where 1.3 L bloody fluid removed Consult pulmonology to evaluate for possible thoracentesis Fluid was sent for cell count differential, cytology, gram stain and culture, LDH, total protein, and pH. Case discussed with Oncology Dr. Grady about the Xeloda treatment Dr. Grady recommended to hold the Xeloda for now until next appointment to discuss about cytology result from the pleural effusion Saturated well on RA Continue incentive spirometry Elevated troponin Troponin peaked to 34.5, then trending down to 26.5 Denies any chest pain currently Chronic ischemic CAD hx of Cardiac Stent HTN HLD Continue ASA, Imdur, metoprolol and rosuvastatin stable T2DM Most Hba1c 7 Continue to hold metformin Lantus/NovoLog per protocol Continue monitor BS CKD stage III Baseline creatinine 1.0 Creatinine 1.1 today avoid nephrotoxic agents DVT ppx: SCDS for now, s/p paracentesis. consider to add lovenox tomorrow FULL CODE Admission and Anticipated Discharge Date Admission Date: April 29, 2022 Subjective Pt was seen and examined for follow of SOB and right large pleural effusion Lying in bed with no acute distress Pt said that her breathing better after the thoracentesis where 1.3 L fluid removal Denies any chest pain, palpitation, dizziness and SOB Review of Systems Review of Systems: All systems reviewed & are unremarkable except as noted in Subjective Physical Exam Physical Exam: General- No acute distress Head- atraumatic Eyes- PERRL, EOMI, ENT- oropharynx clear Neck- supple, no JVD Lungs- +decreased breath sound in right sided Heart- regular rhythm; no murmur Abdomen- normal bowel sounds, soft, nontender Extremities- no calf tenderness Neuro- alert, oriented x 3; PERRL, EOMI; no facial palsy; no dysarthria Skin- warm & dry Results & Data Results & Data ([facility]) Vital Signs (Past 12 Hours) Vital Signs Temp Pulse Pulse Resp BP Pulse Ox O2 Del Method 04/30/22 15:33 36.6 C 87 19 106/65 93 Room Air 04/30/22 14:25 82 04/30/22 08:00 Room Air 04/30/22 11:10 36.5 C 72 19 138/77 95 Room Air 04/30/22 07:00 74 04/30/22 07:09 36.8 C 72 18 150/72 H 95 Room Air (1) T2DM (type 2 diabetes mellitus) Diabetes mellitus complication status: with other specified complication Diabetes mellitus terminal manager insulin use: unspecified terminal manager insulin use status Qualified Code(s): E11.69 - Type 2 diabetes mellitus with other specified complication
[2022-05-01] MEDS: ISOSORBIDE MONO EXTENDED REL 30 MG TABCR PO SCH (08:30)
[2022-05-01] MEDS: ASPIRIN 81 MG ECTAB PO SCH (08:30)
[2022-05-01] MEDS: METOPROLOL SUCC 50MG EXT REL TAB PO SCH (08:30)
[2022-05-01] MEDS: ASCORBIC ACID 500 MG TAB PO SCH (08:30)
[2022-05-01] MEDS: CHOLECALCIFEROL 1,000 UNITS 25 MCG TAB PO SCH (08:30)
[2022-05-01] MEDS: ROSUVASTATIN CALCIUM 20 MG TAB PO SCH (08:30)
[2022-05-01] MEDS: LANTUS PER UNIT CHARGE SQ SCH (08:32)
[2022-05-01] MEDS: INSULIN ASPART PER UNIT SC SCH ×2 (08:33→12:32)
[2022-05-01 11:38] VITALS: TEMP 98.2; O2SAT 96
--- NOTE | 2022-05-01 12:18 | Pulmonology Progress Note ---
Date of Service May 01, 2022 Assessment & Plan (1) Pleural effusion: (2) Dyspnea: (3) Metastatic breast cancer: Plan Impression: 81-year-old female with history of metastatic breast cancer and bloody pleural fluid. Status post thoracentesis 04/30/2022. Cytology pending. Etiology of the pleural effusion would include malignancy or potentially related to her fall. Recommendations: 1. Right pleural effusion: Discussed with patient and spouse at bedside. Lymphocytic exudate. Await cytology. Long-term management will depend on cytology. If the effusion reaccumulate's and is malignant, consideration for serial taps, pleurodesis, or Pleurx catheter placement might be appropriate. If cytology is negative, repeating the tap and repeating cytology might be appropriate. She should have a follow-up chest x-ray in 2 to 3 weeks. 2. Discussed with hospitalist. They are arranging follow-up with her medical oncologist. Hopefully the pleural fluid cytology will be available by then. 3. From a pulmonary standpoint the patient can be dismissed from the hospital. I would be happy to see her back in clinic to review her follow-up chest x-ray in 2 to 4 weeks if needed. Admission and Anticipated Discharge Date Admission Date: April 29, 2022 Subjective Patient seen and examined. EMR reviewed. The patient is sitting up eating lunch. Her is at the bedside. She states her shortness of breath is resolved. She is been ambulatory. No wheezing or coughing. No chest pain. She feels like she is back to baseline. Review of Systems Review of Systems: All systems reviewed & are unremarkable except as noted in Subjective Physical Exam Constitutional: WD/WN, vitals as above Neck: trachea midline, no thyromegaly Respiratory: normal respiratory effort Cardiovascular: RRR, no murmur, no edema Gastrointestinal (Abdomen): normal bowel sounds, soft, nontender, no h epatosplenomegaly Musculoskeletal: Extremities: extremities normal to inspection Skin: no rashes, warm and dry Lymphatic: no cervical lymphadenopathy Results & Data Results & Data ([facility]) Vital Signs (Past 12 Hours) Vital Signs Temp Pulse Pulse Resp BP Pulse Ox O2 Del Method 05/01/22 11:36 36.8 C 74 18 99/68 L 96 Room Air 05/01/22 11:22 64 05/01/22 11:22 Room Air 05/01/22 07:07 36.5 C 68 17 128/77 95 Room Air 05/01/22 03:49 36.8 C 73 20 115/71 95 Room Air Laboratory Results 04/30/22 06:47 04/30/22 06:47 Pleural fluid studies: Cytology pending AFB stain and culture pending Gram stain with rare white blood cells and no organisms, culture pending Cell count differential: 7% neutrophils, 46% lymphocytes, 47% mesothelial cells Total protein 5.7 LDH 498 Glucose 130 Diagnostic Findings Post procedure thoracentesis film independently reviewed.. No obvious pneu mothorax. Nodular lesion identified on chest x-ray corresponding to the prior CT scan. Small residual amount of pleural fluid identified. PG Care Time/CCT Total # of Minutes Spent Total Time Spent with Patient: Total time spent is greater than 50% in coordination of care (as documented) at patient's floor/unit and/or counseling patient: Coding Level of Care Code 98693 Subseq Hosp Care Lvl 2 Diagnoses Pleural effusion J90 Dyspnea R06.00 Metastatic breast cancer C50.919
--- NOTE | 2022-05-01 14:09 | Discharge Summary ---
Date of Service May 01, 2022 Admission HPI Per Admitting Provider This is an 81-year-old female who has significant past medical history of chronic ischemic heart disease with history of angioplasty and stent, history of left breast CA with mets to lung and bone previously in remission, HTN, HLD, CKD stage III who presents to ED secondary to difficulty taking deep breath x 3-4 days. Approximately 4 days ago patient was walking across a lawn with a chair and her one-handed cane and the other. She lost her balance and fell on her back. She denies losing consciousness or hitting her head. Immediately after event she did have back pain, felt nauseated and did vomit x1. She was able to get to her chair and symptoms improved. The next day she began having difficulty taking a big deep breath. She thought this may have been associated with her fall and that maybe she, "injured her lungs." Over the last 3 to 4 days she became more short of breath at rest and with exertion and it became more difficult to take a deep breath. She denies any pain with inspiration. She does have a chronic dry cough. She denies any gillian chest pain, hemoptysis, fever, chills, sweats, lightheadedness, dizziness, syncope, nausea, vomiting, abdominal pain, change in bowel or urinary habits. Of significance patient does have history of left breast cancer with mets to lung and bone which was previously in remission. She follows Dr. Grady and has been taking oral chemotherapy. She recently had a PET scan which showed increased in size, number and activity of pleural and parenchymal metastatic disease on right side with associated pleural effusion. Also noted was increase in hilar and lower mediastinal adenopathy. Because of this her oral chemotherapy was switched to Xeloda which she just started 4 days ago. In ED patient was hemodynamically stable and was not requiring oxygen. Admission Exam Per Admitting Provider Constitutional: WD/WN, vitals as above, NAD, sitting up in bed, pleasant, conversing easily Head: Normocephalic, Atraumatic Eyes: PERRL, conjunctivae normal, anicteric sclerae ENMT: external ear and nose normal, oropharynx normal Neck: trachea midline, no thyromegaly normal visual inspection Respiratory: normal respiratory effort, lungs clear to auscultation, significant decrease in aeration and breath sounds to right middle lung and lung base. no wheeze, rales, rhonchi. Normal insp/exp effort, no accessory muscle use Cardiovascular: RRR, no murmur, no edema Vessels: no JVD or carotid bruit Chest: normal inspection of chest Abdomen: normal bowel sounds, soft, nontender, no hepatosplenomegaly Musculoskeletal: no cyanosis or clubbing, extremities motor strength 5/5 Skin: no rashes, warm and dry normal turgor Neurologic: PERRL, EOMI, accommodation nl, no face palsy, no dysarthria CN's II-XI intact bilaterally and moves all extremities Psychiatric: A+Ox3, euthymic affect Lymphatic: no cervical or axillary lymphadenopathy : deferred Principal Diagnosis Large right pleural effusion Metastatic breast cancer Elevated troponin History Coronary artery disease Chronic ischemic CAD Hypertension Dyslipidemia Diabetes Chronic renal failure Discharge Exam General- No acute distress Head- atraumatic Eyes- PERRL, EOMI, ENT- oropharynx clear Neck- supple, no JVD Lungs- +decreased breath sound in right sided Heart- regular rhythm; no murmur Abdomen- normal bowel sounds, soft, nontender Extremities- no calf tenderness Neuro- alert, oriented x 3; PERRL, EOMI; no facial palsy; no dysarthria Skin- warm & dry Discharge Data Allergies Allergy/AdvReac Type Severity Reaction Status Date / Time No Known Allergies Verified 08/27/20 14:26 Consultations 04/29/22 15:35 ED Decision to Admit Stat 04/29/22 21:22 Consult Pulmonology Routine Ordered Studies 04/29/22 13:24 CT head/brain wo con Stat 04/29/22 14:40 CT angio chest PE protocol Stat XR chest 1V portable CLINICAL HISTORY: S/P Thoracentesis TECHNIQUE: Single frontal radiograph of the chest was obtained. Comparison: Comparison is made to chest radiograph 04/29/2022 FINDINGS: No lines and tubes are seen. The cardiomediastinal silhouette is normal. Partially visualized nodular density in the right upper lung, unchanged from prior exam, may represent loculated pleural fluid. Interval decrease in right pleural effusion which is now small. No pneumothorax is seen. IMPRESSION: 1. Interval decrease in right pleural effusion status post thoracentesis. No evidence of pneumothorax. 2. Nodular density in the right upper lung measuring approximately 41 mm may represent a locule of pleural fluid. Attention on follow-up is recommended. ACT 112: Negative or not required by law. Electronically signed by: Gianni Ferrera M.D. 04/30/2022 10:21 AM Dictated:04/30/22 1016 Transcribed: 04/30/[address] angio chest PE protocol CLINICAL HISTORY: ro pe TECHNIQUE: Multidetector row helical CT of the chest was performed with angiographic protocol. Coronal and sagittal reformations were obtained. Coronal and sagittal MIPS were obtained from the axial data set and were submitted for review. Automated dose lowering techniques and/or adjustment according to patient size were utilized for this exam. CT DOSE: 297.59 mGy.cm Comparison: Comparison is made to CT radiation therapy 07/05/[address] abdomen pelvis 08/08/2020 FINDINGS: Lungs and pleura: There is a large right pleural effusion with associated atelectasis. Numerous pulmonary nodules are seen. These include a 13 mm pleural- based nodule in the right upper lobe (image 216), a 4 mm pleural-based nodule in the left lower lobe (image 94), and an 11 mm nodule in the left lung base (image 67). 10 mm broad based densities in the left posterior lung, unchanged from prior. Heart and pericardium: Heart size is normal. No pericardial effusion. Vessels: No evidence of pulmonary embolism. Incidental note is made of common origin of the left internal carotid artery in the right innominate artery. Mediastinum and kathleen: Unremarkable. Chest wall and lower neck: A soft tissue nodular focus is seen in the left chest wall. Postsurgical changes are noted. Abdomen: Unremarkable. Bones: Degenerative changes in the thoracic spine. IMPRESSION: 1. Multiple nodules, predominantly pleural-based, are seen bilaterally. Findings are concerning for recurrent disease in this patient with history of metastatic breast cancer. 2. Interval development of a large right pleural effusion, malignant effusion should be considered. 3. No evidence of pulmonary embolism. ACT 112: Negative or not required by law. Electronically signed by: Gianni Ferrera M.D. 04/29/2022 3:28 PM Dictated:04/29/22 1505 Transcribed: 04/29/22 1505 XR chest 1V portable HISTORY: Atypical Chest Pain COMPARISON: Chest 10/04/2010. FINDINGS: No pneumothorax. Moderate right pleural effusion with right basilar densities. The left lung appears clear. The heart is normal in size. No left-s ided pleural effusion. IMPRESSION: 1. Moderate right pleural effusion. 2. Right basilar densities favor atelectasis from the pleural effusion. ACT 112: Negative or not required by law. Electronically signed by: Jaxson Carrillo M.D. 04/29/2022 2:16 PM Dictated:04/29/22 141 Transcribed: 04/29/221409 CT head/brain wo con CLINICAL HISTORY: fall Technique: Contiguous axial CT images of the head were acquired from the base of the skull to the vertex without intravenous contrast administration. Images were viewed in brain, subdural and bone windows. Automated dose lowering techniques and/or adjustment according to patient size were utilized for this exam. Comparison: None available at the time of this dictation. Findings: Areas of decreased attenuation are present in the periventricular and subcortical white matter bilaterally consistent with small vessel ischemic disease. Generalized cerebral atrophy with commensurate enlargement of the ventricles, sulci, and cisterns is also present. There is no acute intracranial hemorrhage or evidence of acute territorial infarction. No shift of the midline structures, mass effect, or extra-axial abnormalities are shown. Atherosclerotic calcifications are present in the intracranial segments of the internal carotid arteries. Imaged portions of the paranasal sinuses and mastoid air cells are clear. The orbits appear normal. There are no acute fractures of the calvaria or scalp swelling. Impression: No acute intracranial hemorrhage, no evidence of acute territorial infarction or other acute intracranial disease process. ACT 112: Negative or not required by law. Electronically signed by: Gianni Ferrera M.D. 04/29/2022 2:32 PM Dictated:04/29/22 142 Transcribed: 04/29/221428 Hospital Course (1) Pleural effusion: (2) Metastatic breast cancer: (3) T2DM (type 2 diabetes mellitus): (4) Chronic ischemic heart disease: (5) Hypertension: (6) CKD (chronic kidney disease), stage III: Plan This is an 81-year-old female who has significant past medical history of chronic ischemic heart disease with history of angioplasty and stent, history of left breast CA with mets to lung and bone previously in remission, HTN, HLD, CKD stage III who presents to ED secondary to difficulty taking deep breath x 3-4 days. Large right pleural effusion Metastatic breast cancer Present on admission with SOB CTA chest showed Multiple Interval development of a large right pleural effusion, malignant effusion should be considered. No evidence of pulmonary embolism. Recent PET scan revealed increase in activity, size and number of pleural and parenchymal metastatic disease of right lung Pulmonology on board S/P thoracentesis where 1.3 L bloody fluid removed Consult pulmonology to evaluate for possible thoracentesis Fluid was sent for cell count differential, cytology, gram stain and culture, LDH, total protein, and pH. Case discussed with Oncology Dr. Grady about the Xeloda treatment Dr. Grady recommended to hold the Xeloda for now until next appointment to discuss about cytology result from the pleural effusion Saturated well on RA Continue incentive spirometry Elevated troponin Troponin peaked to 34.5, then trending down to 26.5 Denies any chest pain currently Chronic ischemic CAD hx of Cardiac Stent HTN HLD Continue ASA, Imdur, metoprolol and rosuvastatin stable T2DM Most Hba1c 7 Continue to hold metformin Lantus/NovoLog per protocol Continue monitor BS CKD stage III Baseline creatinine 1.0 Creatinine 1.1 today avoid nephrotoxic agents DVT ppx: SCDS for now, s/p paracentesis. consider to add lovenox tomorrow FULL CODE Total Time Total Time Spent Total Time Spent (In Minutes): 35 minutes Discharge Plan Discharge Items Patient Disposition: Home - Self-Care Reason For Visit: LARGE PLEURAL EFFUSION Discharge Diagnosis: Large right pleural effusion Metastatic breast cancer Elevated troponin History Coronary artery disease Chronic ischemic CAD Hypertension Dyslipidemia Diabetes Chronic renal failure Activity: Resume your previous activity Non-emergency contact: Primary Care Provider, Oncologist and Hides Inspector Call non-emergency contact if: you have any medication questions and your symptoms worsen Follow-up/Referrals: Daniel Hilliard MD [Physician] - Tristan Grady MD [Surgeon] - John Moody MD [Primary Care Provider] - Diet: Carb Consistent or DM2 Addtl Attending Provider Instructions: You were admitted for shortness of breath. Imaging revealed large amount of fluid in the right sided of the lung. About 1.3 liter of bloody fluid removed. Follow up with your primary care provider Dr. Moody with 1 week ( office will call you for the appointment) Follow up with [facility] pulmonology dr. Hilliard in 2 to 4 weeks. You will need to get a follow-up chest x-ray in 2 to 3 weeks. Follow up with oncology dr. Grady Please continue to hold Xeloda for now until next appointment with Dr. Grady to discuss about cytologyresult. Your provider, oncology Dr. Grady, or quality assurance supervisor Dr. Hilliard will discuss the result of the Cytology from the pleural effusion ( Thoracentesis) at the next visit Fall precaution Seek medical attention if you develop any shortness of breath Pending Studies at Discharge: Yes Studies:: Cytology from the pleural effusion ( Thoracentesis) Stand-Alone Forms: My [facility], Smoking Cessation Medications and DC Order Prescriptions: Continued aspirin 81 mg Tablet,Delayed Release (Dr/Ec) 81 mg PO QAM ascorbic acid (vitamin C) 500 mg Tablet 500 mg PO QAM isosorbide mononitrate 30 mg tablet extended release 24 hr 30 mg PO QAM metformin 500 mg tablet 500 mg PO BID rosuvastatin 20 mg tablet 20 mg PO QAM cholecalciferol (vitamin D3) [Vitamin D3] 25 mcg (1,000 unit) Tablet 25 mcg PO QAM metoprolol succinate 50 mg tablet extended release 24 hr 50 mg PO DAILY Discontinued capecitabine 500 mg tablet 1,500 mg PO BID Discharge Orders: Discharge Order (Routine); Ordered 05/01/22 Ordered By: Michela Copeland/Other Patient Handouts: Managing Type 2 Diabetes Admission Data Admit Date/Time: 04/29/22 17:07 Attending Provider: Michela Jung Admit Provider: Eleuterio Berumen Primary Care Provider: John Moody Other Providers: Eleuterio Berumen ; Daniel Hilliard Other Interventions: Discharge Summary Assessment (RN) Last Done: 05/01/22 14:51
[2022-05-01 14:52] VITALS: BP 159/74; PULSE 87
== END 2022-05-01 15:44 | disposition home or self-care (01) | DRG 598 ==
LOC: ED 13:13 → SUATTDRO 17:07 → EDINP 17:07 → 2S 04-30 00:41
DX: J91.0 Malignant pleural effusion; C50.912 Malignant neoplasm of unspecified site of left female breast; N18.30 Chronic kidney disease, stage 3 unspecified; I25.10 Atherosclerotic heart disease of native coronary artery without angina pectoris; C78.01 Secondary malignant neoplasm of right lung; Z79.84 Long term (current) use of oral hypoglycemic drugs; Z80.3 Family history of malignant neoplasm of breast; C79.51 Secondary malignant neoplasm of bone; Z95.5 Presence of coronary angioplasty implant and graft; I12.9 Hypertensive chronic kidney disease with stage 1 through stage 4 chronic kidney disease, or unspecified chronic kidney disease; E11.22 Type 2 diabetes mellitus with diabetic chronic kidney disease

== ENCOUNTER 2022-05-19 11:26 | Observation (INO) ==
--- NOTE | 2022-05-19 11:31 | Emergency Department Note ---
Impression & Plan Confusion, Medication side effect, Anemia ED Provider Note NAME: ZARA SEXTON AGE: 81 SEX: F : 1940 ARRIVES VIA: Ambulance INFORMANT: Patient, ED PROVIDER(S): Nelson Chavira MD Chief Complaint: Altered mental HPI: Patient presents due to concern for altered mental status. Patient states that she feels "sickly." Patient denies any specific symptoms otherwise. There was reported nausea but currently does not complain of nausea or vomiting. Patient denies any fevers chills headache neck pain chest pain shortness of breath or focal weakness. Patient did have fairly unremarkable vitals and a BSG in the 150s prior to arrival. No reported falls or trauma. She denies any vomiting or diarrhea and has not had any dark stools bloody stools or vaginal bleeding. Patient denies any dysuria or hematuria She does have a known history of chronic ischemic heart disease history of angioplasty and stent left breast CA with mets to lung and bone previously in remission hypertension hyperlipidemia CKD stage III was recently seen and admitted in the middle of last month due to concern for shortness of breath. Did have a CT angiography completed on April 29 which showed multiple nodules concerning for recurrence of disease with interval development of large right pleural effusion. Patient did not have any evidence of PE at that time. Patient CT of the head was negative. She did have a thoracentesis completed. Patient does take a baby aspirin but no blood thinning medications. I reviewed her last discharge summary Dr. Grady with oncology recommended holding Xeloda until her next appointment. Reportedly this was restarted several days ago and the patient has had increasing confusion. ROS: See HPI for pertinent positives and negatives. A total of 10 systems were reviewed and otherwise negative. Past medical history: See below Surgical history: See below Social history: See below Physical Exam: GENERAL: NAD, wearing a mask, non-toxic. EYE EXAM: Normal conjunctiva. PERRL, no anisocoria and EOM's grossly intact w/o pain. NECK: Supple, no nuchal rigidity, no adenopathy, non-tender. No signs of meningismus. FROM of the neck with good chin to chest and neck extension. No stridor. LUNGS: Clear to auscultation. Normal chest wall mechanics. HEART: NSR, no MRG. ABDOMEN: Abdomen soft, non-tender, normo-active bowel sounds, no masses, no rebound or guarding. BACK: No CVA TTP. SKIN: No rashes and no bruising. UPPER EXTREMITIES: Upper extremities are grossly normal. LOWER EXTREMITIES: Grossly normal, no edema. NEURO EXAM: Slow and deliberate but with repetitive questioning the patient will answer appropriately, awake and alert x3 and does follow all commands and is with repetitive asking. No obvious facial droop or slurred speech. No sensory deficits and good [id number]. Moves all 4 extremities 5 out of 5 strength. Differential diagnoses: Medication side effects, Iinfection, dehydration, metabolic abnormality, hypo/hyperglycemia, electrolyte disturbance, anemia, hypoxia, cardiac sources, intracerebral event, toxicologic, neurologic, as well as other pathologies. Course: Patient was seen and evaluated the bedside. Full history physical exam was performed. EKG interpreted by me Normal sinus rhythm, rate of 67, normal intervals, normal axis, no ST elev ations. Imaging Studies: See Below Cardiac monitoring: An order was placed for continuous cardiac monitoring. The monitor shows a rate of 75 with sinus rhythm. MDM: Patient presents due to concern for confusion. ED pharmacy was able to look up the patient's medication and noted that confusion is a common side effect. Patient is normal white count with chronic and stable anemia hemoglobin 8.9 with normal platelet count. The patient's kidney function is unremarkable. LFTs are unremarkable. TSH elevated but free T4 normal. Urinalysis not showed and so obvious infection. Perhaps mild dehydration given the patient's trace ketones. CT of the head is negative. The patient does have clinical improvement in right-sided pleural effusion. Given the patient's medication induced confusion and the potential need for chemotherapy believe the patient should stay in hospital at this time. I did speak the on-call hospitalist Bernard Prajapati and the patient was admitted by Dr. Hollis. Past Med/Surg History Medical History Breast cancer, left JUN 2019 > RADIATION > RESOLVED Chronic anemia Chronic ischemic heart disease FOLLOWS DR. CASAREZ Dyslipidemia Esophageal reflux H/O pneumothorax spontaneous > YRS AGO PER PATIENT History of ASCVD (atherosclerotic cardiovascular disease) STEMI 2009 Hypertension Mixed incontinence Varicose vein of leg Surgical History History of cardiac cath 1 STENT 2009 History of colonoscopy History of heart artery stent 1 STENT 2009 > [facility] History of tooth extraction S/P angioplasty 2009 S/P left breast biopsy 06-08-2019 Family History Mother , age 72 Heart disease Arthritis Father , age 72 Alzheimer disease Sister , age 70 Coronary heart disease Brother Stroke Brother , age 80 Heart disease Daughter Breast cancer had radiation therapy Daughter No problems noted. Son No problems noted. 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 Feels Safe at Home: Yes Childhood Exposure to Second-Hand Smoke: No Assistive Devices: Cane Allergies Allergies Allergy/AdvReac Type Severity Reaction Status Date / Time No Known Allergies Verified 08/27/20 14:26 Home Meds Home Medications Medication Instructions Recorded Confirmed ascorbic acid (vitamin C) 500 mg 500 mg PO QAM 08/06/20 05/19/22 tablet aspirin 81 mg tablet,delayed 81 mg PO QAM 08/06/20 05/19/22 release isosorbide mononitrate 30 mg 30 mg PO QAM 08/07/20 05/19/22 tablet,extended release 24 hr cholecalciferol (vitamin D3) 25 25 mcg PO QAM 04/29/22 05/19/22 mcg (1,000 unit) tablet (Vitamin D3) metformin 500 mg tablet 500 mg PO BID 04/29/22 05/19/22 metoprolol succinate 50 mg 50 mg PO DAILY 04/29/22 05/19/22 tablet,extended release 24 hr rosuvastatin 20 mg tablet 20 mg PO QAM 04/29/22 05/19/22 capecitabine 500 mg tablet 1,500 mg PO UD 05/19/22 05/19/22 losartan 25 mg tablet 25 mg PO DAILY 05/19/22 05/19/22 ondansetron HCl 8 mg tablet 8 mg PO Q8H PRN Nausea 05/19/22 05/19/22 Results & Data (ED) Vital Signs Vital Signs - 24 hr 05/19/22 12:03 05/19/22 12:03 05/19/22 12:03 Temperature 36.7 C Temperature Source Oral Pulse Rate 66 Pulse Rate [Apical] Respiratory Rate 18 Respiratory Effort / Characteristics Non-Labored Blood Pressure 164/67 H Blood Pressure [Right Arm] Blood Pressure Mean 99 Blood Pressure Mean [Right Arm] Pulse Oximetry 97 97 Oxygen Delivery Method Room Air Room Air Sepsis Recent Fever Within 48 Hours No Sepsis New/Unexplained Change in Mental Status N/A Sepsis Action Taken by Nursing No Action Required 05/19/22 13:48 Temperature Temperature Source Pulse Rate Pulse Rate [Apical] 60 Respiratory Rate 18 Respiratory Effort / Characteristics Blood Pressure Blood Pressure [Right Arm] 152/60 H Blood Pressure Mean Blood Pressure Mean [Right Arm] 90 Pulse Oximetry 99 Oxygen Delivery Method Room Air Sepsis Recent Fever Within 48 Hours Sepsis New/Unexplained Change in Mental Status Sepsis Action Taken by Half-Way Medications Current Medication List: was personally reviewed by me Laboratory Data Attestation: I reviewed the patient's lab results. Result diagrams: 05/19/22 11:43 05/19/22 11:43 Lab Results 05/19/22 05/19/22 05/19/22 Range/Units 11:43 11:43 11:43 WBC 5.67 (4.8-10.8) K/ul RBC 3.08 L (3.93-5.22) M/uL Hgb 8.9 L (12.0-16.0) g/dl Hct 27.8 L (34.1-44.9) % MCV 90.3 (80.0-100.0) fL MCH 28.9 (25.0-34.0) pg MCHC 32.0 (32.0-36.0) g/dL RDW Std Deviation 52.2 H (36.4-46.3) fL RDW Coeff of Allen 15.9 H (11.5-14.5) % Plt Count 146 (130-400) K/uL MPV 10.3 (9.4-12.3) fL Immature Gran % (Auto) 0.5 % Neut % (Auto) 70.5 % Lymph % (Auto) 13.6 % [place] % (Auto) 11.5 % Eos % (Auto) 3.2 % Baso % (Auto) 0.7 % Neut # (Auto) 4.00 (1.4-6.5) K/uL Lymph # (Auto) 0.77 L (1.2-3.4) K/uL [place] # (Auto) 0.65 (0.24-0.82) K/uL Eos # (Auto) 0.18 (0-0.50) K/uL Baso # (Auto) 0.04 (0-0.2) K/uL Immature Gran # (Auto) 0.03 H (0.00-0.02) K/uL PT Cancelled INR Cancelled Sodium 137 (136-145) mmol/L Potassium 3.9 (3.5-5.1) mmol/L Chloride 101 (98-107) mmol/L Carbon Dioxide 24 (21-32) mmol/L Anion Gap 12 H (3-11) BUN 21 (6-23) mg/dl Creatinine 1.16 (0.6-1.2) mg/dl Est Cr Clr Drug Dosing 34.6 ml/min Est GFR ( Amer) 50.8 ml/min Est GFR (Non-Af Amer) 43.8 ml/min BUN/Creatinine Ratio 18.1 (10-20) Glucose 152 H (70-99(Fasting)) mg/dl Calcium 9.5 (8.5-10.1) mg/dl Magnesium 2.0 (1.7-2.4) mg/dl Total Bilirubin 0.6 (0.2-1.0) mg/dl AST 18 (13-39) U/L ALT 20 (7-52) U/L Alkaline Phosphatase 67 (34-104) U/L Troponin I High Sens 9.0 D (0-14) pg/ml Total Protein 7.4 (6.0-8.3) gm/dl Albumin 3.7 (3.4-5.0) gm/dl Globulin 3.7 (2.5-4.0) gm/dl Albumin/Globulin Ratio 1.0 (0.9-2) TSH (0.300-4.500) uIu/ml Free T4 (0.61-1.60) ng/dl Urine Color Urine Appearance (Clear) Urine pH (4.5-7.5) Ur Specific [place] (1.000-1.030) Urine Protein (Negative) Urine Glucose (UA) (Negative) Urine Ketones (Negative) Urine Blood (Negative) Urine Nitrite (Negative) Urine Bilirubin (Negative) Urine Urobilinogen (Negative) Ur Leukocyte Esterase (Negative) Urine WBC (Auto) (0-5) /hpf Urine RBC (Auto) (0-4) /hpf U Hyaline Cast (Auto) (0-5) /lpf U Epithel Cells (Auto) (0-5) /lpf Urine Bacteria (Auto) (Negative) Ur Renal Epithelial Cell (0-5) /lpf SARS-CoV-2, RNA, NAAT (NEGATIVE) 05/19/22 05/19/22 05/19/22 Range/Units 11:43 12:00 12:00 WBC (4.8-10.8) K/ul RBC (3.93-5.22) M/uL Hgb (12.0-16.0) g/dl Hct (34.1-44.9) % MCV (80.0-100.0) fL MCH (25.0-34.0) pg MCHC (32.0-36.0) g/dL RDW Std Deviation (36.4-46.3) fL RDW Coeff of [place] (11.5-14.5) % Plt Count (130-400) K/uL MPV (9.4-12.3) fL Immature Gran % (Auto) % Neut % (Auto) % Lymph % (Auto) % [place] % (Auto) % Eos % (Auto) % Baso % (Auto) % Neut # (Auto) (1.4-6.5) K/uL Lymph # (Auto) (1.2-3.4) K/uL [place] # (Auto) (0.24-0.82) K/uL Eos # (Auto) (0-0.50) K/uL Baso # (Auto) (0-0.2) K/uL Immature Gran # (Auto) (0.00-0.02) K/uL PT INR Sodium (136-145) mmol/L Potassium (3.5-5.1) mmol/L Chloride (98-107) mmol/L Carbon Dioxide (21-32) mmol/L Anion Gap (3-11) BUN (6-23) mg/dl Creatinine (0.6-1.2) mg/dl Est Cr Clr Drug Dosing ml/min Est GFR ( Amer) ml/min Est GFR (Non-Af Amer) ml/min BUN/Creatinine Ratio (10-20) Glucose (70-99(Fasting)) mg/dl Calcium (8.5-10.1) mg/dl Magnesium (1.7-2.4) mg/dl Total Bilirubin (0.2-1.0) mg/dl AST (13-39) U/L ALT (7-52) U/L Alkaline Phosphatase (34-104) U/L Troponin I High Sens (0-14) pg/ml Total Protein (6.0-8.3) gm/dl Albumin (3.4-5.0) gm/dl Globulin (2.5-4.0) gm/dl Albumin/Globulin Ratio (0.9-2) TSH 5.575 H (0.300-4.500) uIu/ml Free T4 0.81 (0.61-1.60) ng/dl Urine Color Yellow Urine Appearance Clear (Clear) Urine pH 5.5 (4.5-7.5) Ur Specific [place] 1.015 (1.000-1.030) Urine Protein Trace H (Negative) Urine Glucose (UA) Negative (Negative) Urine Ketones Trace H (Negative) Urine Blood Negative (Negative) Urine Nitrite Negative (Negative) Urine Bilirubin Negative (Negative) Urine Urobilinogen Negative (Negative) Ur Leukocyte Esterase Negative (Negative) Urine WBC (Auto) 1-5 (0-5) /hpf Urine RBC (Auto) 0-4 (0-4) /hpf U Hyaline Cast (Auto) 1-5 (0-5) /lpf U Epithel Cells (Auto) >30 H (0-5) /lpf Urine Bacteria (Auto) Negative (Negative) Ur Renal Epithelial Cell 0-5 (0-5) /lpf SARS-CoV-2, RNA, NAAT NEGATIVE (NEGATIVE) 05/19/22 Range/Units 12:30 WBC (4.8-10.8) K/ul RBC (3.93-5.22) M/uL Hgb (12.0-16.0) g/dl Hct (34.1-44.9) % MCV (80.0-100.0) fL MCH (25.0-34.0) pg MCHC (32.0-36.0) g/dL RDW Std Deviation (36.4-46.3) fL RDW Coeff of [place] (11.5-14.5) % Plt Count (130-400) K/uL MPV (9.4-12.3) fL Immature Gran % (Auto) % Neut % (Auto) % Lymph % (Auto) % [place] % (Auto) % Eos % (Auto) % Baso % (Auto) % Neut # (Auto) (1.4-6.5) K/uL Lymph # (Auto) (1.2-3.4) K/uL [place] # (Auto) (0.24-0.82) K/uL Eos # (Auto) (0-0.50) K/uL Baso # (Auto) (0-0.2) K/uL Immature Gran # (Auto) (0.00-0.02) K/uL PT 11.8 INR 1.1 Sodium (136-145) mmol/L Potassium (3.5-5.1) mmol/L Chloride (98-107) mmol/L Carbon Dioxide (21-32) mmol/L Anion Gap (3-11) BUN (6-23) mg/dl Creatinine (0.6-1.2) mg/dl Est Cr Clr Drug Dosing ml/min Est GFR ( Amer) ml/min Est GFR (Non-Af Amer) ml/min BUN/Creatinine Ratio (10-20) Glucose (70-99(Fasting)) mg/dl Calcium (8.5-10.1) mg/dl Magnesium (1.7-2.4) mg/dl Total Bilirubin (0.2-1.0) mg/dl AST (13-39) U/L ALT (7-52) U/L Alkaline Phosphatase (34-104) U/L Troponin I High Sens (0-14) pg/ml Total Protein (6.0-8.3) gm/dl Albumin (3.4-5.0) gm/dl Globulin (2.5-4.0) gm/dl Albumin/Globulin Ratio (0.9-2) TSH (0.300-4.500) uIu/ml Free T4 (0.61-1.60) ng/dl Urine Color Urine Appearance (Clear) Urine pH (4.5-7.5) Ur Specific [place] (1.000-1.030) Urine Protein (Negative) Urine Glucose (UA) (Negative) Urine Ketones (Negative) Urine Blood (Negative) Urine Nitrite (Negative) Urine Bilirubin (Negative) Urine Urobilinogen (Negative) Ur Leukocyte Esterase (Negative) Urine WBC (Auto) (0-5) /hpf Urine RBC (Auto) (0-4) /hpf U Hyaline Cast (Auto) (0-5) /lpf U Epithel Cells (Auto) (0-5) /lpf Urine Bacteria (Auto) (Negative) Ur Renal Epithelial Cell (0-5) /lpf SARS-CoV-2, RNA, NAAT (NEGATIVE) Administered Medications Discontinued Medications Aspirin (Aspirin 81 Mg Ectab) 81 mg PO NOW STA Stop: 05/19/22 14:27 Last Admin: 05/19/22 16:12 Dose: 81 mg Documented By: MELANIE Isosorbide Mononitrate (Isosorbide [place] Extended Rel 30 Mg Tabcr) 30 mg PO NOW ONE Stop: 05/19/22 14:46 Last Admin: 05/19/22 16:12 Dose: 30 mg Documented By: MELANIE Losartan Potassium (Losartan Potassium 25 Mg Tab) 25 mg PO ONE ONE Stop: 05/19/22 14:28 Last Admin: 05/19/22 16:12 Dose: 25 mg Documented By: MELANIE Metoprolol Succinate (Metoprolol Succ 50mg Ext Rel Tab) 50 mg PO NOW STA Stop: 05/19/22 14:27 Last Admin: 05/19/22 16:12 Dose: 50 mg Documented By: MELANIE Imaging Data Radiologist's Impression: Chest X-Ray 05/19/22 11:38 XR chest 1V portable HISTORY: weakness COMPARISON: Chest CTA 04/29/2022. FINDINGS: The heart remains mildly enlarged. A small right pleural effusion has slightly decreased in size. Right basilar densities persist. Scattered pleural- based nodules are again noted and better appreciated on the prior chest CT IMPRESSION: 1. Slight decrease in size in the small right pleural effusion and right basilar densities. 2. Scattered pleural-based nodules are again noted. ACT 112: Negative or not required by law. Electronically signed by: Jaxson Carrillo M.D. 05/19/2022 12:[address] 05/19/22 11:38 CT SCAN OF THE BRAIN WITHOUT IV CONTRAST CLINICAL HISTORY: Change in mental status. COMPARISON STUDY: CT of the brain dated 04/29/2022. TECHNIQUE: Unenhanced axial CT scan of the brain is performed from the vertex to the skull base. A dose lowering technique was utilized adhering to the principles of ALARA. CT DOSE: 537.48 mGy.cm FINDINGS: Brain parenchyma: There is age-related involutional change noting moderate subcortical and periventricular microangiopathic disease. There is no hemorrhage, mass effect, or evidence of acute territorial ischemia by CT criteria. Pimentel-white matter differentiation is preserved. No extra-axial fluid collection is seen. Ventricles, sulci, cisterns: Prominent secondary to involutional change. Intracranial vasculature: There is atherosclerotic calcification of the cavernous carotid and vertebral arteries. Calvarium: Unremarkable. Sinuses and mastoids: The visualized paranasal sinuses are clear. The mastoid air cells are well pneumatized. Orbits: The bony orbits are grossly intact. There are bilateral ocular lens implants. IMPRESSION: There is no hemorrhage, mass effect, or evidence of acute territorial ischemia by CT criteria. ACT 112: Negative or not required by law. Electronically signed by: Jack Coyne M.D. 05/19/2022 1:15 PM Discharge Plan Visit Data Chief Complaint: Altered Mental Status Stated Complaint: AMS ED Provider: Nelson Chavira Discharge Problem: Confusion, Medication side effect, Anemia Patient Disposition: Admitted As Inpatient
[2022-05-19 11:56] LABS: Basophils # (auto) 0.04 K/uL (0-0.2); Basophils % (auto) 0.7 %; Eosinophils # (auto) 0.18 K/uL (0-0.50); Eosinophils % (auto) 3.2 %; Hematocrit (blood only) 27.8 % (34.1-44.9); Hemoglobin 8.9 g/dl (12.0-16.0); Immature Granulocytes # (auto) 0.03 K/uL (0.00-0.02); Immature Granulocytes % (auto) 0.5 %; Lymphocytes # (auto) 0.77 K/uL (1.2-3.4); Lymphocytes % (auto) 13.6 %; Mean Corpuscular Hemoglobin 28.9 pg (25.0-34.0); Mean Corpuscular Volume 90.3 fL (80.0-100.0); Mean Platelet Volume 10.3 fL (9.4-12.3); Monocytes # (auto) 0.65 K/uL (0.24-0.82); Monocytes % (auto) 11.5 %; Neutrophils % (auto) 70.5 %; Platelet Count 146 K/uL (130-400); RDW Coefficient of Variation 15.9 % (11.5-14.5); RDW Standard Deviation 52.2 fL (36.4-46.3); Red Blood Count 3.08 M/uL (3.93-5.22); White Blood Count 5.67 K/ul (4.8-10.8)
[2022-05-19 12:25] LABS: Albumin Level 3.7 gm/dl (3.4-5.0); BUN Creatinine Ratio 18.1 (10-20); Bilirubin,Total 0.6 mg/dl (0.2-1.0); Calcium 9.5 mg/dl (8.5-10.1); Creatinine Clr Calc Pharmacy 34.6 ml/min; Est GFR (African American) 50.8 ml/min; Est GFR (Non-African American) 43.8 ml/min; Globulin 3.7 gm/dl (2.5-4.0); Potassium 3.9 mmol/L (3.5-5.1); Total Protein 7.4 gm/dl (6.0-8.3)
[2022-05-19 12:35] LABS: Appearance Urine Clear (Clear); Bacteria Urine Automated Negative (Negative); Bilirubin Urine Negative (Negative); Blood Urine Negative (Negative); Color Urine Yellow; Epithelial Cell Urine Auto >30 /lpf (0-5); Glucose Urine UA Negative (Negative); Ketones Urine Trace (Negative); Leukocyte Esterase Urine Negative (Negative); Nitrite Urine Negative (Negative); Protein Urine Trace (Negative); RBC Urine Automated 0-4 /hpf (0-4); Specific Gravity Urine 1.015 (1.000-1.030); Urobilinogen Urine Negative (Negative); pH Urine 5.5 (4.5-7.5)
[2022-05-19 12:37] LABS: Thyroid Stimulating Hormone 5.575 uIu/ml (0.300-4.500)
--- NOTE | 2022-05-19 12:40 | XRay Report ---
XR chest 1V portable HISTORY: weakness COMPARISON: Chest CTA 04/29/2022. FINDINGS: The heart remains mildly enlarged. A small right pleural effusion has slightly decreased in size. Right basilar densities persist. Scattered pleural-based nodules are again noted and better ap preciated on the prior chest CT IMPRESSION: 1. Slight decrease in size in the small right pleural effusion and right basilar densities. 2. Scattered pleural-based nodules are again noted. ACT 112: Negative or not required by law. Electronically signed by: Jaxson Carrillo M.D. 05/19/2022 12:39 PM
[2022-05-19 12:47] LABS: Renal Epithelial Cells Urine 0-5 /lpf (0-5)
[2022-05-19 12:56] LABS: INR 1.1 (0.9-1.1); Prothrombin Time 11.8 Seconds (9.0-12.0)
[2022-05-19 13:10] LABS: T4 Free Thyroxine 0.81 ng/dl (0.61-1.60)
--- NOTE | 2022-05-19 13:17 | CT Scan Report ---
CT SCAN OF THE BRAIN WITHOUT IV CONTRAST CLINICAL HISTORY: Change in mental status. COMPARISON STUDY: CT of the brain dated 04/29/2022. TECHNIQUE: Unenhanced axial CT scan of the brain is performed from the vertex to the skull base. A do se lowering technique was utilized adhering to the principles of ALARA. CT DOSE: 537.48 mGy.cm FINDINGS: Brain parenchyma: There is age-related involutional change noting moderate subcortical and periventri cular microangiopathic disease. There is no hemorrhage, mass effect, or evidence of acute territorial ischemia by CT criteria. Pimentel-white matter differentiation is preserved. No extra-axial fluid collec tion is seen. Ventricles, sulci, cisterns: Prominent secondary to involutional change. Intracranial vasculature: There is atherosclerotic calcification of the cavernous carotid and vertebr al arteries. Calvarium: Unremarkable. Sinuses and mastoids: The visualized paranasal sinuses are clear. The mastoid air cells are well pneu matized. Orbits: The bony orbits are grossly intact. There are bilateral ocular lens implants. IMPRESSION: There is no hemorrhage, mass effect, or evidence of acute territorial ischemia by CT andra paredes. ACT 112: Negative or not required by law. Electronically signed by: Jakc Coyne M.D. 05/19/2022 1:15 PM
--- NOTE | 2022-05-19 13:44 | Electrocardiogram Report ---
Test Reason : Blood Pressure : / mmHG Vent. Rate : 067 BPM Atrial Rate : 067 BPM P-R Int : 148 ms QRS Dur : 080 ms QT Int : 406 ms P-R-T Axes : 000 028 049 degrees QTc Int : 429 ms Poor data quality, interpretation may be adversely affected Normal sinus rhythm Normal ECG When compared with ECG of 29-APR-2022 13:21, Premature ventricular complexes are no longer Present Confirmed by Anthony Perry ([id number]) on 05/19/2022 1:43:28 PM Referred By: REFERRED SELF Confirmed By:Bhavesh Perry
[2022-05-19] MEDS ORDERED: ACETAMINOPHEN 325 MG TAB PO PRN (14:12)
[2022-05-19] MEDS ORDERED: POLYETHYLENE (MIRALAX) 17 GM PACK PO PRN (14:12)
[2022-05-19] MEDS ORDERED: ALUMINUM/MAGNESIUM SUSP 30 ML UDC PO PRN (14:12)
[2022-05-19] MEDS ORDERED: ONDANSETRON INJ 2 MG/ML 2 ML VIAL IV PRN (14:12)
--- NOTE | 2022-05-19 14:14 | History & Physical Report ---
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 This morning difficulty ambulating. Restarted Xeloda 05/17/22 Likely secondary to medication - Xeloda Today in ER afebrile, vitals stable. No leukocytosis, no significant electrolyte abnormality. UA unremarkable CT Head: no acute findings Hold Xeloda Monitor CBC, BMP in am Will need outpatient follow up with oncology - Dr Grady AMBULATORY DYSFUNCTION Reported unable to stand up out of bed today by herself. Ambulates with cane at baseline May be secondary to medicine side effect Fall precautions PT/OT eval (2) Metastatic breast cancer: Plan: Left breast CA with metastasis to lung and bone Follows with Dr Grady Currently hold Xeloda as above (3) Chronic ischemic heart disease: Plan: S/P stent Denies chest pain Continue aspirin, isosorbide, metoprolol succinate, rosuvastatin (4) Hypertension: Plan: Continue losartan, metoprolol, isosorbide (5) Dyslipidemia: Plan: Continue rosuvastatin (6) T2DM (type 2 diabetes mellitus): Plan: A1c: 7.0 in 04/2022 Hold home metformin Novolog sliding scale per protocol (7) CKD (chronic kidney disease), stage III: Plan: Cr: 1.16. Baseline 1.1-1.2 Monitor renal functions, avoid nephrotoxic agents (8) Chronic anemia: Plan: Hgb: 8.9. Baseline Hgb in 9's No active bleeding Monitor DVT Prophylaxis Heparin SQ Full Code as per discussion with pt and pt's however would not want prolonged support if poor prognosis Follows with Dr Tovar for routine care Pt was seen and care coordinated with Dr Hollis. 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 History obtained from patient, patient's and chart review. Patient needs assistance with history with her current confusion. Patient with history hospitalization 04/29/2022-05/01/2022 for right pleural effusion s/p thoracentesis of 1.3 L of bloody fluid with negative cytology. Xeloda was held upon discharge. Patient restarted xeloda 05/17/22. Previously patient was on faslodex and was started on Xeloda in 03/2022 and patient reports not feeling well after initiation at that time and had a fall in 04/2022. She follows with heme/onc - Dr Grady. Patient's reports last night he noted patient had some confusion. During the middle the night she walked out of the apartment and just her underwear and he did not know where she was going. He reports he was able to get her back in the bed and this morning when she woke up she seemed somewhat confused and was unable to stand up out of bed on her own. Typically patient ambulates with the use of a cane. Denies any known falls since recent hospital discharge. denies any noted speech abnormality, facial drooping. Patient states she feels like she is confused but is unable to further elaborate. She looks to her frequently for answers to questions. Denies fever/chills, diaphoresis, N/V/D/C, COTTO, dizziness, syncope, vision changes, neck pain, CP, SOB, orthopnea, palpitations, cough, sore throat, choking, otalgia, rhinorrhea, abdominal pain, paresthesias, extremity weakness, extremity edema, rashes, urinary symptoms. Allergies Allergy/AdvReac Type Severity Reaction Status Date / Time No Known Allergies Verified 08/27/20 14:26 Home Medications Medication Instructions Recorded Confirmed Type ascorbic acid (vitamin C) 500 mg 500 mg PO QAM 08/06/20 05/19/22 History tablet aspirin 81 mg tablet,delayed 81 mg PO QAM 08/06/20 05/19/22 History release isosorbide mononitrate 30 mg 30 mg PO QAM 08/07/20 05/19/22 History tablet,extended release 24 hr cholecalciferol (vitamin D3) 25 25 mcg PO QAM 04/29/22 05/19/22 History mcg (1,000 unit) tablet (Vitamin D3) metformin 500 mg tablet 500 mg PO BID 04/29/22 05/19/22 History metoprolol succinate 50 mg 50 mg PO DAILY 04/29/22 05/19/22 History tablet,extended release 24 hr rosuvastatin 20 mg tablet 20 mg PO QAM 04/29/22 05/19/22 History capecitabine 500 mg tablet 1,500 mg PO UD 05/19/22 05/19/22 History losartan 25 mg tablet 25 mg PO DAILY 05/19/22 05/19/22 History ondansetron HCl 8 mg tablet 8 mg PO Q8H PRN Nausea 05/19/22 05/19/22 History Past Med/Surg History Medical History (Updated 05/19/22 @ 14:38 by Reta Prajapati PA-C) Breast cancer, left JUN 2019 > RADIATION > RESOLVED Chronic anemia Chronic ischemic heart disease FOLLOWS DR. CASAREZ Dyslipidemia Esophageal reflux H/O pneumothorax spontaneous > YRS AGO PER PATIENT History of ASCVD (atherosclerotic cardiovascular disease) STEMI 2009 Hypertension Mixed incontinence Varicose vein of leg Surgical History History of cardiac cath 1 STENT 2009 History of colonoscopy History of heart artery stent 1 STENT 2009 > [facility] History of tooth extraction S/P angioplasty 2009 S/P left breast biopsy 06-08-2019 Family History Mother , age 72 Heart disease Arthritis Father , age 72 Alzheimer disease Sister , age 70 Coronary heart disease Brother Stroke Brother , age 80 Heart disease Daughter Breast cancer had radiation therapy Daughter No problems noted. Son No problems noted. 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 Feels Safe at Home: Yes Childhood Exposure to Second-Hand Smoke: No Assistive Devices: Cane Review of Systems Review of Systems: All systems reviewed & are unremarkable except as noted in HPI & below Physical Exam Physical Exam: General: no distress, WDWN Head: normocephalic, atraumatic Eyes: PERRL, EOM's intact, conjunctiva non-injected, anicteric ENT: normal inspection external ears, nose, mucous membranes moist Neck: supple, trachea midline Lungs: clear, no respiratory distress, no wheezing/rhonchi/rales CV: RRR, no murmur, no pretibial edema Abd: normal BS, soft, non-tender Ext: no cyanosis, no calf tenderness Neuro: Alert, oriented to person, place. Unsure of president, does know year 2021 but is slow to answer. no focal deficits noted, strength 5/5 upper and lower extremities, normal affect Skin: warm, dry Results & Data Results & Data ([facility]) Vital Signs (Past 12 Hours) Vital Signs Temp Pulse Resp BP Pulse Ox O2 Del Method 05/19/22 12:03 Room Air 05/19/22 12:03 97 05/19/22 12:03 36.7 C 66 18 164/67 H 97 Room Air Laboratory Results Short CBC 05/19/22 Range/Units 11:43 WBC 5.67 (4.8-10.8) K/ul Hgb 8.9 L (12.0-16.0) g/dl Hct 27.8 L (34.1-44.9) % Plt Count 146 (130-400) K/uL BMP 05/19/22 11:43 Sodium 137 Potassium 3.9 Chloride 101 Carbon Dioxide 24 BUN 21 Creatinine 1.16 Glucose 152 H Calcium 9.5 Liver Function 05/19/22 Range/Units 11:43 Total Bilirubin 0.6 (0.2-1.0) mg/dl AST 18 (13-39) U/L ALT 20 (7-52) U/L Alkaline Phosphatase 67 (34-104) U/L Albumin 3.7 (3.4-5.0) gm/dl Urine 05/19/22 Range/Units 12:00 Urine Color Yellow Urine Appearance Clear (Clear) Urine pH 5.5 (4.5-7.5) Ur Specific [place] 1.015 (1.000-1.030) Urine Protein Trace H (Negative) Urine Glucose (UA) Negative (Negative) Diagnostic Findings Chest X-Ray 05/19/22 11:38 XR chest 1V portable HISTORY: weakness COMPARISON: Chest CTA 04/29/2022. FINDINGS: The heart remains mildly enlarged. A small right pleural effusion has slightly decreased in size. Right basilar densities persist. Scattered pleural- based nodules are again noted and better appreciated on the prior chest CT IMPRESSION: 1. Slight decrease in size in the small right pleural effusion and right basilar densities. 2. Scattered pleural-based nodules are again noted. ACT 112: Negative or not required by law. Electronically signed by: Jaxson Carrillo M.D. 05/19/2022 12:[address] 05/19/22 11:38 CT SCAN OF THE BRAIN WITHOUT IV CONTRAST CLINICAL HISTORY: Change in mental status. COMPARISON STUDY: CT of the brain dated 04/29/2022. TECHNIQUE: Unenhanced axial CT scan of the brain is performed from the vertex to the skull base. A dose lowering technique was utilized adhering to the principles of ALARA. CT DOSE: 537.48 mGy.cm FINDINGS: Brain parenchyma: There is age-related involutional change noting moderate subcortical and periventricular microangiopathic disease. There is no hemorrhage, mass effect, or evidence of acute territorial ischemia by CT criteria. Pimentel-white matter differentiation is preserved. No extra-axial fluid collection is seen. Ventricles, sulci, cisterns: Prominent secondary to involutional change. Intracranial vasculature: There is atherosclerotic calcification of the cavernous carotid and vertebral arteries. Calvarium: Unremarkable. Sinuses and mastoids: The visualized paranasal sinuses are clear. The mastoid air cells are well pneumatized. Orbits: The bony orbits are grossly intact. There are bilateral ocular lens implants. IMPRESSION: There is no hemorrhage, mass effect, or evidence of acute territorial ischemia by CT criteria. ACT 112: Negative or not required by law. Electronically signed by: Jack Coyne M.D. 05/19/2022 1:15 PM Supervising Physician Co-Signing Physician Notes 81 yo F w/ PMH of left breast Ca w/ mets to lung and bone, currently on Xeloda, follows w/ Dr. Grady with other hx including CAD s/p stent, HTN, HLD, CKD III presented to ED 05/19 w/ c/o AMS x 1 day NURSE'S COMPANION. Per , he reports patient being confused and concern for weakness. Pt was recently restarted on Xeloda as OP. Labs and imaging wnl. Pt denies smoking/alcohol/recreational drugs use. Hold Xeloda, f/u w/ onco as OP. diet ok, PT/OT, CM to assist w/ DC planning, likely can go tomorrow if w/ improvement. Upon Exam: GENERAL: Alert and oriented x2. NAD, on RA. HEENT: No pallor, no icterus. Pupils equal, round and reactive to light. Oral mucosa moist. NECK: No JVD, no neck masses. HEART: S1 and S2 heard. Regular rate and rhythm. No murmur, no gallop. RESPIRATORY SYSTEM: Normal AP diameter. No accessory muscle use. No wheezing, no crackles. ABDOMEN: Soft, bowel sounds present, nontender, no distention. CENTRAL NERVOUS SYSTEM: No facial droop. Speech is clear. Obeys simple commands. Moves extremities. EXTREMITIES: No edema, no erythema seen. I have seen and examined the patient and have discussed the case with the provider above. I agree with the assessment and plan as stated. (1) T2DM (type 2 diabetes mellitus) Diabetes mellitus complication status: with other specified complication Diabetes mellitus senior living insulin use: unspecified senior living insulin use status Qualified Code(s): E11.69 - Type 2 diabetes mellitus with other specified complication
[2022-05-19] MEDS ORDERED: METOPROLOL SUCC 50MG EXT REL TAB PO STA (14:26)
[2022-05-19] MEDS ORDERED: ASPIRIN 81 MG ECTAB PO STA (14:26)
[2022-05-19] MEDS ORDERED: LOSARTAN POTASSIUM 25 MG TAB PO ONE (14:27)
[2022-05-19] MEDS ORDERED: ISOSORBIDE MONO EXTENDED REL 30 MG TABCR PO ONE (14:45)
[2022-05-19] MEDS ORDERED: CARBOHYDRATES FOR HYPOGLYCEMIA PO PRN (16:01)
[2022-05-19] MEDS ORDERED: DEXTROSE 50% 50 ML SYRINGE IV PRN (16:01)
[2022-05-19] MEDS ORDERED: GLUCOSE 40% GEL 15 GM TUBE PO PRN (16:01)
[2022-05-19] MEDS ORDERED: GLUCAGON FOR INJ 1 MG VIAL SQ PRN (16:01)
[2022-05-19] MEDS ORDERED: GLUCOSE 10 TAB/TUBE PO PRN (16:01)
[2022-05-19] MEDS: INSULIN ASPART PER UNIT SC SCH ×2 (17:09→21:14)
[2022-05-20] MEDS: HEPARIN SOD 5,000 UNIT/0.5 ML VIAL SQ SCH ×3 (02:37→19:52)
[2022-05-20 05:52] LABS: Hematocrit (blood only) 26.1 % (34.1-44.9); Hemoglobin 8.3 g/dl (12.0-16.0); Mean Corpuscular Hemoglobin 28.9 pg (25.0-34.0); Mean Corpuscular Hgb Conc 31.8 g/dL (32.0-36.0); Mean Corpuscular Volume 90.9 fL (80.0-100.0); Mean Platelet Volume 9.7 fL (9.4-12.3); Platelet Count 133 K/uL (130-400); RDW Coefficient of Variation 15.8 % (11.5-14.5); RDW Standard Deviation 51.3 fL (36.4-46.3); Red Blood Count 2.87 M/uL (3.93-5.22); White Blood Count 5.18 K/ul (4.8-10.8)
[2022-05-20 06:18] LABS: BUN Creatinine Ratio 19.8 (10-20); Calcium 9.1 mg/dl (8.5-10.1); Creatinine Clr Calc Pharmacy 34.6 ml/min; Est GFR (African American) 50.8 ml/min; Est GFR (Non-African American) 43.8 ml/min; Magnesium 2.1 mg/dl (1.7-2.4); Phosphorus 3.7 mg/dl (2.5-4.9); Potassium 3.7 mmol/L (3.5-5.1)
[2022-05-20] MEDS: INSULIN ASPART PER UNIT SC SCH ×4 (08:34→20:41)
--- NOTE | 2022-05-20 08:55 | Hospitalist Progress Note ---
Date of Service May 20, 2022 Assessment & Plan (1) Metabolic encephalopathy: Plan: - Likely secondary to medication - Xeloda - Today in ER afebrile, vitals stable. No leukocytosis, no significant electrolyte abnormality. UA unremarkable - CT Head: no acute findings, CXR unremarkable - Hold Xeloda - Monitor - Will need outpatient follow up with oncology - Dr Grady - Reported unable to stand up out of bed today by herself. Ambulates with cane at baseline - May be secondary to medicine side effect - already improving - Fall precautions - PT/OT eval (2) Metastatic breast cancer: Plan: Left breast CA with metastasis to lung and bone Follows with Dr Grady Currently hold Xeloda as above (3) Chronic ischemic heart disease: Plan: S/P stent Denies chest pain Continue aspirin, isosorbide, metoprolol succinate, rosuvastatin (4) Hypertension: Plan: Continue losartan, metoprolol, isosorbide (5) Dyslipidemia: Plan: Continue rosuvastatin (6) T2DM (type 2 diabetes mellitus): Plan: A1c: 7.0 in 04/2022 Hold home metformin Novolog sliding scale per protocol (7) CKD (chronic kidney disease), stage III: Plan: Cr: 1.16. Baseline 1.1-1.2 Monitor renal functions, avoid nephrotoxic agents (8) Chronic anemia: Plan: Hgb: 8.9. Baseline Hgb in 9's No active bleeding Monitor Plan DVT Prophylaxis Heparin SQ Full Code as per discussion with pt and pt's however would not want prolonged support if poor prognosis Follows with Dr Tovar for routine care Kb Jacobson MD [facility] Medicine Admission and Anticipated Discharge Date Admission Date: May 19, 2022 Subjective The patient is an 81 year old woman with pmh CAD s/p PCI, h/o left breast CA with mets to lung and bone, HTN, HLD, CKD stage 3 who presented with AMS and ambulatory dysfunction after restarting Xeloda for breast cancer on 05/17/2020. The patient was awake and alert to me and AAOx4 this morning. She knows she was confused the past couple of days that she is unsteady on her feet at this time. She denies chest pain, shortness of breath,n/v/d, abdominal pain, cough, dysuria. She is feeling better but still a little unsteady. Review of Systems Review of Systems: All systems reviewed & are unremarkable except as noted in Subjective Physical Exam Physical Exam: General: no distress, WDWN. AAOx4 Head: normocephalic, atraumatic Eyes: PERRL, EOM's intact, conjunctiva non-injected, anicteric ENT: normal inspection external ears, nose, mucous membranes moist Neck: supple, trachea midline Lungs: clear, no respiratory distress, no wheezing/rhonchi/rales CV: RRR, no murmur, no pretibial edema Abd: normal BS, soft, non-tender Ext: no cyanosis, no calf tenderness Neuro: Alert, oriented to person, place. no focal deficits noted, strength 5/5 upper and lower extremities, normal affect. Unsteady when standing. Skin: warm, dry Results & Data Results & Data ([facility]) Vital Signs (Past 12 Hours) Vital Signs Temp Pulse Resp BP Pulse Ox O2 Del Method 05/20/22 07:20 36.6 C 62 16 100/63 96 05/19/22 22:20 36.8 C 16 125/66 96 Room Air Laboratory Results Short CBC 05/19/22 05/20/22 Range/Units 11:43 05:42 WBC 5.67 5.18 (4.8-10.8) K/ul Hgb 8.9 L 8.3 L (12.0-16.0) g/dl Hct 27.8 L 26.1 L (34.1-44.9) % Plt Count 146 133 (130-400) K/uL BMP 05/19/22 05/20/22 11:43 05:42 Sodium 137 138 Potassium 3.9 3.7 Chloride 101 103 Carbon Dioxide 24 26 BUN 21 23 Creatinine 1.16 1.16 Glucose 152 H 115 H Calcium 9.5 9.1 Liver Function 05/19/22 Range/Units 11:43 Total Bilirubin 0.6 (0.2-1.0) mg/dl AST 18 (13-39) U/L ALT 20 (7-52) U/L Alkaline Phosphatase 67 (34-104) U/L Albumin 3.7 (3.4-5.0) gm/dl Urine 05/19/22 Range/Units 12:00 Urine Color Yellow Urine Appearance Clear (Clear) Urine pH 5.5 (4.5-7.5) Ur Specific [place] 1.015 (1.000-1.030) Urine Protein Trace H (Negative) Urine Glucose (UA) Negative (Negative) Medications Administered Current Inpatient Medications Acetaminophen (Acetaminophen 325 Mg Tab) 650 mg PO Q8H PRN PRN Reason: Pain or Fever Stop: 06/18/22 14:11 Al Hydrox/Mg Hydrox/Simethicone (Aluminum/Magnesium Susp 30 Ml Udc) 15 ml PO Q4H PRN PRN Reason: Dyspepsia Stop: 06/18/22 14:11 Aspirin (Aspirin 81 Mg Ectab) 81 mg PO QAM BENNETT Stop: 06/19/22 08:59 Dextrose (Dextrose 50% 50 Ml Syringe) 25 - 50 ml IV UD PRN; Protocol PRN Reason: Hypoglycemia Protocol Stop: 06/18/22 16:00 Glucagon (Glucagon For Inj 1 Mg Vial) 1 mg SQ UD PRN; Protocol PRN Reason: Hypoglycemia Protocol Stop: 06/18/22 16:00 Glucose (Glucose 40% Gel 15 Gm Tube) 15 - 30 gm PO UD PRN; Protocol PRN Reason: Hypoglycemia Protocol Stop: 06/18/22 16:00 Glucose (Glucose 10 Tab/Tube) 4 - 8 tab PO UD PRN; Protocol PRN Reason: Hypoglycemia Treatment Stop: 06/18/22 16:00 Heparin Sodium (Porcine) (Heparin Sod 5,000 Unit/0.5 Ml Vial) 5,000 units SQ Q12 BENNETT Stop: 06/18/22 20:59 Last Admin: 05/20/22 02:37 Dose: Not Given Insulin Aspart (Insulin Aspart Per Unit) 0 units SC ACHS BENNETT Stop: 06/18/22 16:29 Last Admin: 05/20/22 08:34 Dose: 1 units Isosorbide Mononitrate (Isosorbide [place] Extended Rel 30 Mg Tabcr) 30 mg PO QAM BENNETT Stop: 06/19/22 08:59 Losartan Potassium (Losartan Potassium 25 Mg Tab) 25 mg PO DAILY BENNETT Stop: 06/19/22 08:59 Metoprolol Succinate (Metoprolol Succ 50mg Ext Rel Tab) 50 mg PO DAILY BENNETT Stop: 06/19/22 08:59 Miscellaneous (Carbohydrates For Hypoglycemia ) 15 - 30 gm PO UD PRN PRN Reason: Hypoglycemia Protocol Stop: 06/18/22 16:00 Ondansetron HCl (Ondansetron Inj 2 Mg/Ml 2 Ml Vial) 4 mg IV Q6H PRN PRN Reason: Nausea Stop: 06/18/22 14:11 Polyethylene Glycol (Polyethylene (Miralax) 17 Gm Pack) 17 gm PO DAILY PRN PRN Reason: Constipation Stop: 06/18/22 14:11 Rosuvastatin Calcium (Rosuvastatin Calcium 20 Mg Tab) 20 mg PO QAM [facility] Stop: 06/19/22 08:59 Vitamin D (Cholecalciferol 1,000 Units 25 Mcg Tab) 1,[facility] [place] Stop: 06/19/22 08:59 (1) T2DM (type 2 diabetes mellitus) Diabetes mellitus complication status: with other specified complication Diabetes mellitus assisted insulin use: unspecified assisted insulin use status Qualified Code(s): E11.69 - Type 2 diabetes mellitus with other specified complication
[2022-05-20] MEDS: METOPROLOL SUCC 50MG EXT REL TAB PO SCH (09:02)
[2022-05-20] MEDS: ROSUVASTATIN CALCIUM 20 MG TAB PO SCH (09:02)
[2022-05-20] MEDS: LOSARTAN POTASSIUM 25 MG TAB PO SCH (09:02)
[2022-05-20] MEDS: CHOLECALCIFEROL 1,000 UNITS 25 MCG TAB PO SCH (09:02)
[2022-05-20] MEDS: ISOSORBIDE MONO EXTENDED REL 30 MG TABCR PO SCH (09:02)
[2022-05-20] MEDS: ASPIRIN 81 MG ECTAB PO SCH (09:03)
[2022-05-20 21:47] VITALS: TEMP 98.2; O2SAT 98
[2022-05-21 06:48] LABS: Basophils # (auto) 0.05 K/uL (0-0.2); Basophils % (auto) 0.9 %; Eosinophils # (auto) 0.03 K/uL (0-0.50); Eosinophils % (auto) 0.6 %; Hematocrit (blood only) 26.8 % (34.1-44.9); Hemoglobin 8.4 g/dl (12.0-16.0); Immature Granulocytes # (auto) 0.02 K/uL (0.00-0.02); Immature Granulocytes % (auto) 0.4 %; Lymphocytes # (auto) 1.39 K/uL (1.2-3.4); Lymphocytes % (auto) 26.2 %; Mean Corpuscular Hemoglobin 28.9 pg (25.0-34.0); Mean Corpuscular Hgb Conc 31.3 g/dL (32.0-36.0); Mean Corpuscular Volume 92.1 fL (80.0-100.0); Mean Platelet Volume 9.9 fL (9.4-12.3); Monocytes # (auto) 0.77 K/uL (0.24-0.82); Monocytes % (auto) 14.5 %; Neutrophils # (auto) 3.05 K/uL (1.4-6.5); Neutrophils % (auto) 57.4 %; Platelet Count 141 K/uL (130-400); RDW Coefficient of Variation 15.9 % (11.5-14.5); RDW Standard Deviation 51.9 fL (36.4-46.3); Red Blood Count 2.91 M/uL (3.93-5.22); White Blood Count 5.31 K/ul (4.8-10.8)
[2022-05-21 07:18] LABS: BUN Creatinine Ratio 23.3 (10-20); Calcium 9.2 mg/dl (8.5-10.1); Creatinine Clr Calc Pharmacy 33.5 ml/min; Est GFR (African American) 48.7 ml/min; Est GFR (Non-African American) 42.1 ml/min; Magnesium 2.1 mg/dl (1.7-2.4); Phosphorus 3.5 mg/dl (2.5-4.9); Potassium 3.9 mmol/L (3.5-5.1)
[2022-05-21 07:33] VITALS: BP 114/67; PULSE 62
[2022-05-21] MEDS: INSULIN ASPART PER UNIT SC SCH ×2 (08:30→12:34)
[2022-05-21] MEDS: ISOSORBIDE MONO EXTENDED REL 30 MG TABCR PO SCH (08:50)
[2022-05-21] MEDS: ROSUVASTATIN CALCIUM 20 MG TAB PO SCH (08:50)
[2022-05-21] MEDS: ASPIRIN 81 MG ECTAB PO SCH (08:50)
[2022-05-21] MEDS: CHOLECALCIFEROL 1,000 UNITS 25 MCG TAB PO SCH (08:50)
[2022-05-21] MEDS: LOSARTAN POTASSIUM 25 MG TAB PO SCH (08:51)
[2022-05-21] MEDS: METOPROLOL SUCC 50MG EXT REL TAB PO SCH (08:51)
[2022-05-21] MEDS: HEPARIN SOD 5,000 UNIT/0.5 ML VIAL SQ SCH (08:51)
--- NOTE | 2022-05-21 15:29 | Discharge Summary ---
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 History obtained from patient, patient's and chart review. Patient needs assistance with history with her current confusion. Patient with history hospitalization 04/29/2022-05/01/2022 for right pleural effusion s/p thoracentesis of 1.3 L of bloody fluid with negative cytology. Xeloda was held upon discharge. Patient restarted xeloda 05/17/22. Previously patient was on faslodex and was started on Xeloda in 03/2022 and patient reports not feeling wel l after initiation at that time and had a fall in 04/2022. She follows with heme/onc - Dr Grady. Patient's reports last night he noted patient had some confusion. During the middle the night she walked out of the apartment and just her underwear and he did not know where she was going. He reports he was able to get her back in the bed and this morning when she woke up she seemed somewhat confused and was unable to stand up out of bed on her own. Typically patient ambulates with the use of a cane. Denies any known falls since recent hospital discharge. denies any noted speech abnormality, facial drooping. Patient states she feels like she is confused but is unable to further elaborate. She looks to her frequently for answers to questions. Denies fever/chills, diaphoresis, N/V/D/C, COTTO, dizziness, syncope, vision changes, neck pain, CP, SOB, orthopnea, palpitations, cough, sore throat, choking, otalgia, rhinorrhea, abdominal pain, paresthesias, extremity weakness, extremity edema, rashes, urinary symptoms. Admission Exam Per Admitting Provider General: no distress, WDWN Head: normocephalic, atraumatic Eyes: PERRL, EOM's intact, conjunctiva non-injected, anicteric ENT: normal inspection external ears, nose, mucous membranes moist Neck: supple, trachea midline Lungs: clear, no respiratory distress, no wheezing/rhonchi/rales CV: RRR, no murmur, no pretibial edema Abd: normal BS, soft, non-tender Ext: no cyanosis, no calf tenderness Neuro: Alert, oriented to person, place. Unsure of president, does know year 2021 but is slow to answer. no focal deficits noted, strength 5/5 upper and lower extremities, normal affect Skin: warm, dry Principal Diagnosis medication induced delirium Discharge Exam General: no distress, WDWN. AAOx4 Head: normocephalic, atraumatic Eyes: PERRL, EOM's intact, conjunctiva non-injected, anicteric ENT: normal inspection external ears, nose, mucous membranes moist Neck: supple, trachea midline Lungs: clear, no respiratory distress, no wheezing/rhonchi/rales CV: RRR, no murmur, no pretibial edema Abd: normal BS, soft, non-tender Ext: no cyanosis, no calf tenderness Neuro: Alert, oriented to person, place. no focal deficits noted, strength 5/5 upper and lower extremities, normal affect. improved gait steadiness close to baseline. Skin: warm, dry Discharge Data Allergies Allergy/AdvReac Type Severity Reaction Status Date / Time No Known Allergies Verified 08/27/20 14:26 Consultations 05/19/22 13:49 ED Decision to Admit Stat Ordered Studies 05/19/22 11:38 CT head/brain wo con Stat Hospital Course (1) Metabolic encephalopathy: - Likely secondary to medication - Xeloda - Today in ER afebrile, vitals stable. No leukocytosis, no significant electrolyte abnormality. UA unremarkable - CT Head: no acute findings, CXR unremarkable - Hold Xeloda - Monitor - Will need outpatient follow up with oncology - Dr Grady - Reported unable to stand up out of bed today by herself. Ambulates with cane at baseline - May be secondary to medicine side effect - already improving - Fall precautions - PT/OT eval - reevaluated with improved ambulation - patient back to baseline mental status and ambulatory status - ok to return home using walker (2) Metastatic breast cancer: Left breast CA with metastasis to lung and bone Follows with Dr Grady Currently hold Xeloda as above (3) Chronic ischemic heart disease: S/P stent Denies chest pain Continue aspirin, isosorbide, metoprolol succinate, rosuvastatin (4) Hypertension: Continue losartan, metoprolol, isosorbide (5) Dyslipidemia: Continue rosuvastatin (6) T2DM (type 2 diabetes mellitus): A1c: 7.0 in 04/2022 Hold home metformin Novolog sliding scale per protocol (7) CKD (chronic kidney disease), stage III: Cr: 1.16. Baseline 1.1-1.2 Monitor renal functions, avoid nephrotoxic agents (8) Chronic anemia: Hgb: 8.9. Baseline Hgb in 9's No active bleeding Monitor Plan DVT Prophylaxis Heparin SQ Full Code as per discussion with pt and pt's however would not want prolonged support if poor prognosis Follows with Dr Tovar for routine care Kb Jacobson MD [facility] Medicine Total Time Total Time Spent Total Time Spent (In Minutes): 19 Total Time Includes: Examination of the Patient, Discharge Planning and Medication Reconciliation Discharge Plan Discharge Items Patient Disposition: Home - Self-Care Reason For Visit: AMS Discharge Diagnosis: medication induced delirium and ambulatory dysfunction Activity: Resume your previous activity Non-emergency contact: Primary Care Provider and Oncologist Call non-emergency contact if: you have any medication questions and your symptoms worsen Follow-up/Referrals: Tristan Grady MD [Surgeon] - (Date & Time 06/24/2022 8:45 AM Provider Tristan Grady MD Department Hematology/Oncology [facility] The office will call you to be seen sooner when appointment becomes available. ) Cesario Tovar MD [Physician] - (Date & Time 05/28/2022 12:20 PM Provider Audra Toro PA-C Department Family Practice [facility] ) Diet: Heart Healthy Addtl Attending Provider Instructions: You were admitted for confusion and difficulty walking. You recently started on a cancer medication Xeloda, which likely caused your confusion and difficulty walking. We stopped this medication and you had improvement in your symptoms. You were seen by physical therapy who says you are ok to go home but should use a walker more often than the cane you have been using. Please follow up with you cancer doctor and primary care doctor, appointments have been made. Please do not take Xeloda until discussing with your cancer doctor. Pending Studies at Discharge: No Stand-Alone Forms: My [employer], Smoking Cessation Medications and DC Order Prescriptions: Continued aspirin 81 mg Tablet,Delayed Release (Dr/Ec) 81 mg PO QAM ascorbic acid (vitamin C) 500 mg Tablet 500 mg PO QAM isosorbide mononitrate 30 mg tablet extended release 24 hr 30 mg PO QAM metformin 500 mg tablet 500 mg PO BID rosuvastatin 20 mg tablet 20 mg PO QAM cholecalciferol (vitamin D3) [Vitamin D3] 25 mcg (1,000 unit) Tablet 25 mcg PO QAM metoprolol succinate 50 mg tablet extended release 24 hr 50 mg PO DAILY ondansetron HCl 8 mg tablet 8 mg PO Q8H PRN (Reason: Nausea) losartan 25 mg tablet 25 mg PO DAILY Discontinued capecitabine 500 mg tablet 1,500 mg PO UD Rx Instructions: 3 tabs BID x 7 days, then hold for 7 days Discharge Orders: Discharge Order (Routine); Ordered 05/21/22 Ordered By: Kb Jacobson Admission Data Admit Date/Time: 05/19/22 14:15 Attending Provider: Kb Jacobson Admit Provider: Kedar Hollis Primary Care Provider: John Moody Other Providers: Kedar Hollis Other Interventions: Discharge Summary Assessment (RN) Last Done: 05/21/22 14:30 Supervising Physician Co-Signing Physician Notes 81 yo F w/ PMH of left breast Ca w/ mets to lung and bone, currently on Xeloda, follows w/ Dr. Grady with other hx including CAD s/p stent, HTN, HLD, CKD III presented to ED 05/19 w/ c/o AMS x 1 day [employer]. Per , he reports patient being confused and concern for weakness. Pt was recently restarted on Xeloda as OP. Labs and imaging wnl. Pt denies smoking/alcohol/recreational drugs use. Hold Xeloda, f/u w/ onco as OP. diet ok, PT/OT, CM to assist w/ DC planning, likely can go tomorrow if w/ improvement. Upon Exam: GENERAL: Alert and oriented x2. NAD, on RA. HEENT: No pallor, no icterus. Pupils equal, round and reactive to light. Oral mucosa moist. NECK: No JVD, no neck masses. HEART: S1 and S2 heard. Regular rate and rhythm. No murmur, no gallop. RESPIRATORY SYSTEM: Normal AP diameter. No accessory muscle use. No wheezing, no crackles. ABDOMEN: Soft, bowel sounds present, nontender, no distention. CENTRAL NERVOUS SYSTEM: No facial droop. Speech is clear. Obeys simple commands. Moves extremities. EXTREMITIES: No edema, no erythema seen. I have seen and examined the patient and have discussed the case with the provider above. I agree with the assessment and plan as stated.
== END 2022-05-21 15:02 | disposition home or self-care (01) ==
LOC: ED 11:26 → EDINP 11:26 → SUATTDRO 14:15 → EDINP 22:14 → 3E 22:44